=== PATIENT | female | born 1980 | race Caucasian/White ===

== ENCOUNTER 2017-06-28 16:48 | Inpatient (IN) | payer MEDICAID, OTHER ==
[~2017-06-28] VITALS: Ht 165.1 cm; Wt 56.3 kg
[~2017-06-28 16:48] MED LIST: MACR100C PO; OMEP40CA2 PO; WELL150T PO; ZOFR4TAB3 SL; ZYPR15TA PO
[2017-06-28 17:21] VITALS: BP 133/59; PULSE 94; RESP 21; TEMP 97.9; O2SAT 100
--- NOTE | 2017-06-28 17:30 | PD ---
HPI Chief Complaint: Psychiatric Symptoms Time Seen by Provider: 17:18 Travel History International Travel<30 days: No Contact w/Intl Traveler<30days: No Traveled to known affect area: No History of Present Illness HPI 37yo F with PMH of bipolar disorder presents to the ED under [place] Act for being found soaking wet and talking about Destin Raman. Pt said she was getting help for her mom and went into a pond. Said she does have thoughts of hurting herself but did not do anything today including taking any pills. Denies any fever, chest pain, sob, n/v, abdominal pain, focal weakness or numbness. Said she has not seen her psychiatrist for months and not taking any medications. PFSH Past Medical History ADD: Yes Bipolar Disorder: Yes Anxiety: Yes Depression: Yes Diminished Hearing: No Reproductive: Yes (CURRENTLY (02/21/08) ) Immunizations Current: Yes Renal Failure: Yes ?: Not : 4 Para: 2 Miscarriage: 2 Ectopic : Yes (1X) Social History Alcohol Use: No Tobacco Use: No Substance Use: No Allergies-Medications (Allergen,Severity, Reaction): Coded Allergies: clindamycin (Unverified Allergy, Mild, RASH, 01/17/17) Reported Meds & Prescriptions Reported Meds & Active Scripts Active Macrobid (Nitrofurantoin Macrocrystals) 100 Mg Cap 100 Mg PO BID Zofran ODT (Ondansetron HCl) 4 Mg Tab 4 Mg SL Q6H PRN FOR NAUSEA/VOMITING Omeprazole 40 mg (Omeprazole) 40 Mg Cap 1 Cap PO Q DAY Reported Zyprexa (Olanzapine) 15 Mg Tab 15 Mg PO DAILY Wellbutrin Sr (Bupropion HCl) 150 Mg Tab 300 Mg PO DAILY Review of Systems Except as stated in HPI: all other systems reviewed are Neg Physical Exam Narrative GENERAL: 37yo F not in distress. Disheveled. SKIN: Minor scratches on extremities. HEAD: Atraumatic. Normocephalic. EYES: Pupils equal and round. No scleral icterus. No injection or drainage. ENT: No nasal bleeding or discharge. Mucous membranes pink and moist. NECK: Trachea midline. No JVD. CARDIOVASCULAR: Regular rate and rhythm. No murmur appreciated. RESPIRATORY: No accessory muscle use. Clear to auscultation. Breath sounds equal bilaterally. GASTROINTESTINAL: Abdomen soft, non-tender, nondistended. MUSCULOSKELETAL: No obvious deformities. No clubbing. No cyanosis. No edema. NEUROLOGICAL: Awake and alert. No obvious cranial nerve deficits. Motor grossly within normal limits. Normal speech. AAOx3. PSYCHIATRIC: Inappropriate mood and affect; poor insight and judgment. Data Data Last Documented VS Vital Signs Date Time Temp Pulse Resp B/P (MAP) Pulse Ox O2 Delivery O2 Flow Rate FiO2 06/28/17 17:21 97.9 94 21 133/59 (83) 100 Room Air Orders Orders Complete Blood Count With Diff (06/28/17 17:25) Comprehensive Metabolic Panel (06/28/17 17:25) Thyroid Stimulating Hormone (06/28/17 17:25) Psych Screen (06/28/17 17:25) Drug Screen, Random Urine (06/28/17 17:25) Alcohol (Ethanol) (06/28/17 17:25) Salicylates (Aspirin) (06/28/17 17:25) Tylenol (Acetaminophen) (06/28/17 17:25) Sodium Chlor 0.9% 1000 Ml Inj (Ns 1000 M (06/28/17 19:15) Labs Laboratory Tests Test 06/28/17 17:20 06/28/17 17:33 Urine Opiates Screen NEG Urine Barbiturates Screen NEG Urine Amphetamines Screen NEG Urine Benzodiazepines Screen NEG Urine Cocaine Screen NEG Urine Cannabinoids Screen NEG White Blood Count 8.5 TH/MM3 Red Blood Count 3.77 MIL/MM3 Hemoglobin 12.0 GM/DL Hematocrit 35.2 % Mean Corpuscular Volume 93.2 FL Mean Corpuscular Hemoglobin 31.9 PG Mean Corpuscular Hemoglobin Concent 34.3 % Red Cell Distribution Width 12.5 % Platelet Count 217 TH/MM3 Mean Platelet Volume 8.0 FL Neutrophils (%) (Auto) 83.3 % Lymphocytes (%) (Auto) 9.1 % Monocytes (%) (Auto) 7.0 % Eosinophils (%) (Auto) 0.1 % Basophils (%) (Auto) 0.5 % Neutrophils # (Auto) 7.1 TH/MM3 Lymphocytes # (Auto) 0.8 TH/MM3 Monocytes # (Auto) 0.6 TH/MM3 Eosinophils # (Auto) 0.0 TH/MM3 Basophils # (Auto) 0.0 TH/MM3 CBC Comment DIFF FINAL Differential Comment Blood Urea Nitrogen 26 MG/DL Creatinine 0.95 MG/DL Random Glucose 64 MG/DL Total Protein 7.4 GM/DL Albumin 4.1 GM/DL Calcium Level 8.7 MG/DL Alkaline Phosphatase 43 U/L Aspartate Amino Transf (AST/SGOT) 51 U/L Alanine Aminotransferase (ALT/SGPT) 38 U/L Total Bilirubin 0.8 MG/DL Sodium Level 144 MEQ/L Potassium Level 3.8 MEQ/L Chloride Level 106 MEQ/L Carbon Dioxide Level 20.7 MEQ/L Anion Gap 17 MEQ/L Estimat Glomerular Filtration Rate 67 ML/MIN Thyroid Stimulating Hormone 3rd Gen 1.020 uIU/ML Salicylates Level 2.5 MG/DL Acetaminophen Level LESS THAN 2.0 MCG/ML Ethyl Alcohol Level LESS THAN 3 MG/DL MDM Medical Decision Making Medical Screen Exam Complete: Yes Emergency Medical Condition: Yes Differential Diagnosis Psychosis vs. bipolar disorder Narrative Course 37yo F with bipolar disorder here under [place] Act for bizarre behavior. Pt is very bizarre and said she does have thoughts of hurting herself. Labs reviewed , no leukocytosis. H/H normal. Glucose mildly decreased at 64, pt given juice. BUN elevated at 26, given NS IVF. TSH normal. Utox negative. Alcohol , acetaminophen and salicylate negative. Pt is medically clear for psych evaluation. Diagnosis Primary Impression: Bipolar disorder Qualified Codes: F31.30 - Bipolar disorder, current episode depressed, mild or moderate severity, unspecified Darlyn Lewis DO Jun 28, 2017 17:30
[2017-06-28 17:52] LABS: AUTOMATED NEUTROPHIL # 7.1 TH/MM3 (1.8-7.7); BASOPHIL % 0.5 % (0.0-2.0); EOSINOPHIL % 0.1 % (0.0-4.0); HEMATOCRIT 35.2 % (35.0-46.0); LYMPH % 9.1 % (9.0-44.0); LYMPHOCYTE # 0.8 TH/MM3 (1.0-4.8); MEAN CELL VOLUME 93.2 FL (80.0-100.0); MEAN CORPUSCULAR HEMOGLOBIN 31.9 PG (27.0-34.0); MEAN CORPUSCULAR HGB CONC 34.3 % (32.0-36.0); MONOCYTE # 0.6 TH/MM3 (0-0.9); NEUT % 83.3 % (16.0-70.0); PLATELET COUNT 217 TH/MM3 (150-450); RED BLOOD COUNT 3.77 MIL/MM3 (4.00-5.30); RED CELL DISTRIBUTION WIDTH 12.5 % (11.6-17.2); WHITE BLOOD COUNT 8.5 TH/MM3 (4.0-11.0)
[2017-06-28 18:10] LABS: ALBUMIN 4.1 GM/DL (3.4-5.0); ALT (GPT) 38 U/L (10-53); AST (GOT) 51 U/L (15-37); BICARBONATE 20.7 MEQ/L (21.0-32.0); BLOOD UREA NITROGEN 26 MG/DL (7-18); CALCIUM 8.7 MG/DL (8.5-10.1); CHLORIDE 106 MEQ/L (98-107); CREATININE 0.95 MG/DL (0.50-1.00); GLOMERULAR FILTRATION RATE 67 ML/MIN (>89); GLUCOSE,RANDOM 64 MG/DL (74-106); SODIUM (NA) 144 MEQ/L (136-145)
[2017-06-28 18:20] LABS: ACETAMINOPHEN LESS THAN 2.0 MCG/ML (10.0-30.0); ALKALINE PHOSPHATASE 43 U/L (45-117); TOTAL BILIRUBIN ADULT 0.8 MG/DL (0.2-1.0); TOTAL PROTEIN 7.4 GM/DL (6.4-8.2)
[2017-06-28] MEDS ORDERED: SODIUM CHLOR 0.9% 1000 ML INJ 1,000 ML IV ONE (19:15)
[2017-06-28 23:46] VITALS: BP 116/64; PULSE 100; RESP 18; TEMP 100.1; O2SAT 100
[2017-06-29] MEDS ORDERED: BENZTROPINE MESYLATE 2 MG/2 ML VIAL IM PRN (01:00)
[2017-06-29] MEDS ORDERED: MAGNESIUM HYDROXIDE SUSP 30 ML CUP PO PRN (01:00)
[2017-06-29] MEDS ORDERED: BENZTROPINE MESYLATE 1 MG TAB PO PRN (01:00)
[2017-06-29] MEDS ORDERED: traZODone HCL 50 MG TAB PO PRN (01:00)
[2017-06-29] MEDS ORDERED: ALUMINUM/MAGNESIUM/SIMETH 30 ML CUP PO PRN (01:00)
[2017-06-29] MEDS ORDERED: NICOTINE 21 MG/24 HR PATCH T-DERMAL PRN (01:00)
[2017-06-29 03:00] VITALS: BP 121/70; PULSE 81; RESP 16; TEMP 98; O2SAT 99
--- NOTE | 2017-06-29 08:36 | HHI.HP ---
Provisional Diagnosis Admission Date Jun 29, 2017 at 00:53 [place] I. 1. Schizoaffective disorder, unspecified type [place] II. Deferred Certification of Person's Competence To Provide Express and Informed Consent I have personally examined Sarah Santos , a person being served at [facility] on, Jun 29, 2017 08:35. Express and informed consent means consent voluntarily given in writing, by a competent person, after sufficient explanation and disclosure of the subject matter involved to enable the person to make a knowing and willful decision without any element of force, fraud, deceit, duress, or other form of constraint or coercion. This person is 18 years of age or older, is not now known to be incompetent to consent to treatment with a guardian advocate, and does not have a health care surrogate or proxy currently making medical treatment decisions. I have found this person to be one of the following: [] Competent to provide express and informed consent, as defined above, for voluntary admission to this facility and is competent to provide express and informed consent for treatment. He/she has the consistent capacity to make well reasoned, willful, and knowing decisions concerning his or her medical or mental health treatment. The person fully and consistently understands the purpose of the admission for examination/placement and is fully capable of personally exercising all rights assured [place] [x] Incompetent to provide express and informed consent to voluntary admission, and this is incompetent to provide express and informed consent to treatment. The person must be transferred to involuntary status and a petition for a guardian advocate filed with the Circuit Court. [] Refusing to provide express and informed consent to voluntary admission but is competent to provide express and informed consent for treatment. The person must be discharged or transferred to involuntary status. Form shall be completed within 24 hours of a person's arrival at the receiving facility and filed in the clinical record of each person: 1. Admitted on a voluntary basis 2. Permitted to provide express and informed consent to his/her own treatment 3. Allowed to transfer from involuntary to voluntary status 4. Prior to permitting a person to consent to his or her own treatment after having been previously found incompetent to consent to treatment. History of Present Illness Capacity: Lacks Capacity Psych Chief Complaint: "I don't wanna take meds, I'm ok." HPI Ms. Santos is a 37-year-old female with a self-reported history of bipolar disorder and autism spectrum disorder who presents under a [place]cker act by law enforcement alleging that the patient was found soaking wet and talking about [place]. Reviewing our electronic medical record, I note that the patient has no prior psychiatric contact within our system but does have bipolar disorder in her problem list. Patient seen and examined with nurse. Chart reviewed. Case discussed with nursing staff. Patient has reportedly been quite exit seeking, trying many of the doors on the unit. I find the patient at the nursing station door, trying the handle. She is quite anxious and appears internally stimulated. She is covering her ears with her hands. She is with some effort redirected to her room for the interview. She insists that we "close the door tight" noting that she is quite sensitive to sounds. She repeatedly stares out of the window of her room in a watchful fashion but cannot say what she is looking at. She also covers her pillow with her head and puts her fingers in her ears. She insists that she is feeling "great" today, although affect is generally dysphoric and restricted. Sleep and appetite are "good enough." She denies SI/HI but seems unreliable to contract for safety. She tends to minimize symptoms generally. Regarding the circumstances of her presentation here, she says "I was on a bible study trip and was reading the bible and must've fallen into a ravine." Remainder of the psychiatric ROS is negative. Complains of headache but has no other physical complaints. Past psychiatric history: Patient is possibly an unreliable historian. She reports previous psychiatric diagnoses as noted above. She is not currently under the care of a psychiatrist. She is on no psychotropic medications. Most recent psychiatric admission was reportedly over 5 years ago at [facility]. She denies a history of suicide attempts. With the patient's permission and given her degree of psychiatric impairment, I did endeavor to obtain collateral information from patient's mother, Marcy Santos, at [phone]. I left a voicemail requesting a call back. Again with patient's permission, I had more success in reaching patient's father, Tyrese Santos, at [phone] (alternate [phone]). He reports patient has a history of Bipolar disorder/Schizophrenia; she does not have a history of autism that he is aware of. He notes she has been "roaming around" for the last week or so. She is frequently medication non-adherent and reportedly tries to manage her psychiatric symptoms with diet. She may have a history of eating disordered behavior. He notes that patient was staying with mother and reportedly told her that both mother and patient were going to . She has been hospitalized fairly recently at [facility] and [facility]. She has received ECT treatments in the past. Father is unable to care for patient in his home at this time. He is willing to act as HCS. He is in agreement with treatment plan as outlined below. Review of Systems ROS Limitations: Psychotic, Poor Historian Except as stated in HPI: all other systems reviewed are Neg Past Psych History Psychological trauma history No reported trauma history. Violence risk - others (6 mos) Indeterminate. Psychotic and unpredictable. Violence risk - self (6 mos) Indeterminate. Psychotic and unpredictable. Substance Abuse History Drugs/Alcohol past 12 months Patient denies any abuse of drugs or alcohol Past Family Social History Coded Allergies: clindamycin (Unverified Allergy, Mild, RASH, 01/17/17) Past Medical History Patient denies any significant past medical history Active Scripts Nitrofurantoin Monohyd Macro (Macrobid) 100 Mg Cap, 100 MG PO BID, #20 CAP Prov:Ludivina Kelley MD 03/16/16 Ondansetron (Zofran ODT) 4 Mg Tab, 4 MG SL Q6H Y for NAUSEA OR VOMITING, #4 TAB FOR NAUSEA/VOMITING Prov:Ludivina Kelley MD 03/16/16 Omeprazole 40 mg (Omeprazole 40 mg) 40 Mg Cap, 1 CAP PO Q DAY, #14 Prov:Ludivina Kelley MD 03/16/16 Reported Medications Olanzapine (Zyprexa) 15 Mg Tab, 15 MG PO DAILY, TAB 03/16/16 Bupropion Hcl (Wellbutrin Sr) 150 Mg Tab, 300 MG PO DAILY, TAB 03/16/16 Current Medications Medications (Trade) Dose Ordered Sig/Ewelina Route Start Time Stop Time Status Last Admin (Ativan) 0.5 mg Q6H PRN PO 06/29/17 01:00 (Ativan Inj) 0.5 mg Q6H PRN IM 06/29/17 01:00 (Tylenol) 650 mg Q4H PRN PO 06/29/17 01:00 (Milk Of Magnesia Liq) 30 ml DAILY PRN PO 06/29/17 01:00 (Mag-Al Plus Susp Liq) 30 ml Q6H PRN PO 06/29/17 01:00 (Habitrol 21 Mg Patch.24 Hr) 1 patch DAILY PRN T-DERMAL 06/29/17 01:00 (Desyrel) 50 mg HS PRN PO 06/29/17 01:00 (Cogentin) 1 mg Q12H PRN PO 06/29/17 01:00 (Cogentin Inj) 1 mg Q12H PRN IM 06/29/17 01:00 Family Psych History Patient reports that her mother has bipolar disorder. She denies any family history of suicide. Social History Patient's mother reportedly has stage III lung cancer. Patient has been residing with mother. Patient has 2 sons ages 6 and 7 who reside with her father. Patient is not presently in a long-term relationship. She is high school educated. She does report some source of income, unclear what. Social history is somewhat limited because of patient's degree of psychiatric symptomatology. Patient's Strengths (min. 2) In a monitored setting. Verbally fluent. Physical Exam Physical exam was completed by ED provider. On my examination today, the patient appears to be in no acute physical distress. No motor abnormalities noted. Labs and vitals reviewed: Vital Signs Vital Signs Date Time Temp Pulse Resp B/P (MAP) Pulse Ox O2 Delivery O2 Flow Rate FiO2 06/29/17 03:00 98.0 81 16 121/70 (87) 99 06/28/17 23:46 Room Air Lab Results Item Value Date Time White Blood Count 8.5 TH/MM3 06/28/17 1733 Hemoglobin 12.0 GM/DL 06/28/17 1733 Platelet Count 217 TH/MM3 06/28/17 1733 Sodium Level 140 MEQ/L 06/29/17 0658 Potassium Level 3.5 MEQ/L 06/29/17 0658 Chloride Level 105 MEQ/L 06/29/17 0658 Carbon Dioxide Level 24.0 MEQ/L 06/29/17 0658 Blood Urea Nitrogen 15 MG/DL # 06/29/17 0658 Creatinine 0.87 MG/DL 06/29/17 0658 Estimat Glomerular Filtration Rate 74 ML/MIN L 06/29/17 0658 Random Glucose 86 MG/DL 06/29/17 0658 Thyroid Stimulating Hormone 3rd Gen 1.020 uIU/ML 06/28/17 1733 Beta HCG, Qualitative LESS THAN 1 MIU/ML 06/28/17 1733 Urine Opiates Screen NEG 06/28/17 1720 Urine Barbiturates Screen NEG 06/28/17 1720 Urine Amphetamines Screen NEG 06/28/17 1720 Urine Benzodiazepines Screen NEG 06/28/17 1720 Urine Cocaine Screen NEG 06/28/17 1720 Urine Cannabinoids Screen NEG 06/28/17 1720 Ethyl Alcohol Level LESS THAN 3 MG/DL 06/28/17 1733 Decreased GFR noted. Mental Status Examination Appearance: Disheveled Consciousness: Alert, Vigilant Orientation: Person, Place (at least) Motor Activity: Normal gait Speech: Unremarkable Language: Adequate Fund of Knowledge: Adequate Attention and Concentration: Easily Distracted Memory: Impaired (suspect psychosis interferes) Mood: Other ("great") Affect: Anxious, Other (dysphoric) Thought Process & Associations: Circumstantial Thought Content: Bizarre thinking, Hallucinations Hallucination Type: Other (denies AVH but appears frankly internally stimulated ) Delusion Type: Other (fairly guarded but no shara delusions) Suicidal Ideation: No (unreliable to contract for safety) Suicidal Plan: No Suicidal Intention: No Homicidal Ideation: No (unreliable to contract for safety) Homicidal Plan: No Homicidal Intention: No Insight: Poor Judgment: Poor Assessment & Plan Problem List: (1) Other schizoaffective disorders ICD Codes: F25.8 - Other schizoaffective disorders Assessment & Plan 37-year-old female with psychiatric history as detailed above who presents under a Decker act. On my examination today, the patient appears frankly internally stimulated and guarded. I suspect a psychotic process, possibly as part of a schizoaffective disorder. Although the patient reports a history of autism, father reports that the patient has no such history, and clinical presentation currently is really more consistent with a primary psychotic illness, possibly with some affective features. Patient requires psychiatric hospitalization at this time for safety, observation and stabilization. Admit inpatient. Involuntary status. I have completed first opinion. Consult for second opinion. Request healthcare surrogate and guardian advocate. I have asked the nurse to try to obtain treatment records from and [facility]. For the management of psychosis, I will initiate Risperdal M-Tabs 1mg BID with plans to titrate to effect. Haldol IM backup should patient refuse PO Risperdal. Could consider Consta or Sustenna. EKG for QTc. Ativan as needed for anxiety, Cogentin as needed for EPS, trazodone as needed for sleep. Oral intake is poor, and patient may have a history of eating disorder per father; dietitian consult and I&Os. Vitals every shift. Counselor to see. Disposition planning. Estimated length of stay: 7-9 days. Discharge Planning Pending psychiatric stabilization. Enrique Maya MD Jun 29, 2017 08:36
[2017-06-29 08:48] LABS: ALKALINE PHOSPHATASE 41 U/L (45-117); ALT (GPT) 37 U/L (10-53); AST (GOT) 48 U/L (15-37); BLOOD UREA NITROGEN 15 MG/DL (7-18); CALCIUM 8.3 MG/DL (8.5-10.1); CHLORIDE 105 MEQ/L (98-107); CHOLESTEROL 127 MG/DL (120-200); CHOLESTEROL/ HDL RATIO 2.14 RATIO; CREATININE 0.87 MG/DL (0.50-1.00); GLOMERULAR FILTRATION RATE 74 ML/MIN (>89); GLUCOSE,RANDOM 86 MG/DL (74-106); HDL CHOLESTEROL 59.1 MG/DL (40.0-60.0); LDL CHOLESTEROL 59 MG/DL (0-99); SODIUM (NA) 140 MEQ/L (136-145); TOTAL BILIRUBIN ADULT 0.8 MG/DL (0.2-1.0); TOTAL PROTEIN 7.4 GM/DL (6.4-8.2); TRIGLYCERIDES 47 MG/DL (42-150)
[2017-06-29] MEDS: LORazepam 1 MG TAB PO PRN (09:01)
[2017-06-29] MEDS ORDERED: OLANZapine IM 10 MG VIAL IM STA (14:23)
[2017-06-29 16:53] LABS: HEMOGLOBIN A1C 5.1 % (4.3-6.0)
[2017-06-29] MEDS: risperiDONE ODT 1 MG TAB PO SCH (21:00)
[2017-06-29] MEDS: ACETAMINOPHEN 325 MG TAB PO PRN (23:41)
[2017-06-30] MEDS: HALOPERIDOL LACTATE 5 MG/ML AMP IM PRN (00:12)
[2017-06-30 05:56] VITALS: BP 113/61; PULSE 73; RESP 16; TEMP 97.4; O2SAT 99
[2017-06-30] MEDS: risperiDONE ODT 1 MG TAB PO SCH ×2 (09:00→20:09)
[2017-06-30 09:03] LABS: BACTERIA, URINE OCC /hpf; BLOOD, URINE MOD (NEG); GLUCOSE,URINE NEG (NEG); KETONE, URINE 80 mg/dL (NEG); MUCUS URINE FEW /lpf (OCC); NITRITE,URINE NEG (NEG); SQUAMOUS EPITHELIAL CELL URINE 5 /hpf (0-5); URINE COLOR YELLOW (YELLW/STRAW); URINE LEUKOCYTE ESTERASE LARGE (NEG)
[2017-06-30 09:16] LABS: BILIRUBIN, URINE NEG (NEG)
[2017-06-30 10:50] LABS: BICARBONATE 28.7 MEQ/L (21.0-32.0); CALCIUM 8.6 MG/DL (8.5-10.1); CREATININE 0.96 MG/DL (0.50-1.00)
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
--- NOTE | 2017-06-30 13:16 | HHI.PYPN ---
Subjective Chief Complaint: Psychosis Remarks Patient seen and examined with nurse. Chart reviewed. Patient ate little yesterday, but nurse reports that patient has met with dietitian to formulate a food plan that patient will eat, and I do see her taking lunch while I am on the unit. Case discussed with nursing staff. Behavior considerably disturbed overnight: patient tried to elope and also pulled a screw off the wall, although she did relinquish this when asked. Case discussed in treatment team. On my exam, patient reports that she pulled the screw out of the wall because she wanted to kill herself to go to [facility]. She denies SI/HI now. I have ordered the patient placed on a 1:1 for safety. She is calmer and less frantic today. She is delusional on anglican themes. Remains internally stimulated. Although she is not consenting for medications, I have discussed medication treatment plan with the patient. Denies side effects from medications. No physical complaints. I did discuss the patient's case with father/healthcare surrogate over the phone , including behaviors overnight and need for 1:1. He plans to make a visit over the weekend. Review of Systems ROS Limitations: Psychotic, Poor Historian Except as stated in HPI: all other systems reviewed are Neg Mental Status Examination Appearance: Disheveled Consciousness: Alert Orientation: Person, Place (at least) Motor Activity: Other (no hand tremor, no cogwheeling, no dystonia, no dyskinesia, no other motor abnormalities noted) Speech: Unremarkable Language: Adequate Fund of Knowledge: Adequate Attention and Concentration: Easily Distracted Memory: Impaired (psychosis interferes) Mood: Other (calmer) Affect: Anxious (less so today versus yesterday) Thought Process & Associations: Circumstantial Thought Content: Bizarre thinking, Hallucinations Hallucination Type: Other (remains internally stimulated) Delusion Type: Other (anglican) Suicidal Ideation: No (unreliable to contract for safety) Suicidal Plan: No Suicidal Intention: No Homicidal Ideation: No (unreliable to contract for safety) Homicidal Plan: No Homicidal Intention: No Insight: Poor Judgment: Poor Results Labs Test 06/30/17 07:15 06/30/17 09:50 Urine Color YELLOW Urine Turbidity HAZY Urine pH 6.0 Urine Specific [place] 1.025 Urine Protein 30 mg/dL Urine Glucose (UA) NEG mg/dL Urine Ketones 80 mg/dL Urine Occult Blood MOD Urine Nitrite NEG Urine Bilirubin NEG Urine Urobilinogen LESS THAN 2.0 MG/DL Urine Leukocyte Esterase LARGE Urine RBC 1 /hpf Urine WBC 20 /hpf Urine Squamous Epithelial Cells 5 /hpf Urine Bacteria OCC /hpf Urine Mucus FEW /lpf Microscopic Urinalysis Comment CULTURE INDICATED Blood Urea Nitrogen 14 MG/DL Creatinine 0.96 MG/DL Random Glucose 124 MG/DL Calcium Level 8.6 MG/DL Sodium Level 141 MEQ/L Potassium Level 3.5 MEQ/L Chloride Level 105 MEQ/L Carbon Dioxide Level 28.7 MEQ/L Anion Gap 7 MEQ/L Estimat Glomerular Filtration Rate 66 ML/MIN Date/Time Source Procedure Growth Status 06/30/17 07:15 Urine Clean Catch Urine Culture Pending Received Labs reviewed. UA concerning for UTI. Urine culture pending. GFR mildly decreased but stable. EKG sinus leon with QTcH 405ms. Vitals/IOs Vital Signs Date Time Temp Pulse Resp B/P (MAP) Pulse Ox O2 Delivery O2 Flow Rate FiO2 06/30/17 05:56 97.4 73 16 113/61 (78) 99 06/28/17 23:46 Room Air Intake and Output 06/30/17 06/30/17 07/01/17 08:00 16:00 00:00 Intake Total 0 ml Balance 0 ml Assessment & Plan Problem List: (1) Other schizoaffective disorders ICD Codes: F25.8 - Other schizoaffective disorders Assessment & Plan Titrate Risperdal over the weekend to target psychotic symptoms. Continue Haldol IM backup. To consider long-acting injectable antipsychotic. Initiate Macrobid for possible UTI; follow-up urine cultures. 1:1 observation for safety. Continue to monitor on high acuity unit. Continue other medications and care as ordered. Justification for Cont. Inpt. Impairment in safety. Impairment in reality construction. Medication changes. High risk for decompensation and less restrictive environment. Discharge Planning Pending psychiatric stabilization. Enrique Maya MD Jun 30, 2017 13:16
--- NOTE | 2017-06-30 13:28 | PD.TTN ---
Patient Problems 1. Discharge planning 2. Medication compliance 3. Knowledge deficit 4. Lack of coping skills Progress Toward Goals Provider Present: Dr. Jonas Maya Provider Input: 06/30 Angie presents with a history of psychosis- her Risperdal will be titrated over the weekend Psych Therapist Input: 06/30 patient seen for bio today did not cooperat yesterday Group Spec/RT/OT/ROQUE Input: 06/30 patient is unable to tolerate gruops at this time Ashleigh Jimenes LCSW Jun 30, 2017 13:28
[2017-06-30] MEDS: NITROFURANTOIN MONOHYD MACROCR 100 MG CAP PO SCH (18:00)
[2017-06-30 18:33] VITALS: BP 118/62; PULSE 71; RESP 17; TEMP 97.6; O2SAT 100
[2017-07-01 06:19] VITALS: BP 111/63; PULSE 76; RESP 16; TEMP 97.6; O2SAT 100
[2017-07-01] MEDS: risperiDONE ODT 1 MG TAB PO SCH ×3 (08:00→21:54)
[2017-07-01] MEDS: NITROFURANTOIN MONOHYD MACROCR 100 MG CAP PO SCH ×2 (08:00→16:58)
--- NOTE | 2017-07-01 12:13 | HHI.PYPN ---
Subjective Chief Complaint: Psychosis Remarks Pt seen and discussed with staff. She remains delusional with bizarre behavior. She believes that she is [place] Raman and has been "talking to God" on the unit. She has been refusing to eat. RN's have been pushing oral hydration and pt is reluctantly compliant with fluids. She is perseverative and repeats, "The power of Lamine compels us!" she has been compliant with medications. She requests a vegetarian diet. Mental Status Examination Appearance: Disheveled Consciousness: Alert Orientation: Person, Place (at least) Motor Activity: Other (no hand tremor, no cogwheeling, no dystonia, no dyskinesia, no other motor abnormalities noted) Speech: Unremarkable Language: Adequate Fund of Knowledge: Adequate Attention and Concentration: Easily Distracted Memory: Impaired (psychosis interferes) Mood: Other (calmer) Affect: Anxious (less so today versus yesterday) Thought Process & Associations: Circumstantial Thought Content: Bizarre thinking, Hallucinations Hallucination Type: Other (remains internally stimulated) Delusion Type: Other (bahai) Suicidal Ideation: No (unreliable to contract for safety) Suicidal Plan: No Suicidal Intention: No Homicidal Ideation: No (unreliable to contract for safety) Homicidal Plan: No Homicidal Intention: No Insight: Poor Judgment: Poor Results Labs Date/Time Source Procedure Growth Status 06/30/17 07:15 Urine Clean Catch Urine Culture Pending Received Vitals/IOs Vital Signs Date Time Temp Pulse Resp B/P (MAP) Pulse Ox O2 Delivery O2 Flow Rate FiO2 07/01/17 06:19 97.6 76 16 111/63 (79) 100 06/28/17 23:46 Room Air Intake and Output 07/01/17 07/01/17 07/02/17 08:00 16:00 00:00 Intake Total 250 ml Balance 250 ml Assessment & Plan Problem List: (1) Other schizoaffective disorders ICD Codes: F25.8 - Other schizoaffective disorders Assessment & Plan Continue titration of risperidone. Changed diet to vegetarian and continue to encourage oral fluids and intake. Estimated LOS: days Justification for Cont. Inpt. impairments in reality testing and self care Roxi Byrd MD Jul 01, 2017 12:13
--- NOTE | 2017-07-01 14:08 | EKG ---
Date Performed: 06/30/2017 Time Performed: 12:57:42 PTAGE: 37 years EKG: SINUS BRADYCARDIA WITH SINUS ARRHYTHMIA EARLY REPOLARIZATION BORDERLINE ECG PREVIOUS TRACING : 09/04/2015 15.04 T-wave changes are new since prior tracing. Clinical correl ation is recommended. DOCTOR: Faustino Newby Interpretating Date/Time 07/01/2017 14:07:33
[2017-07-01 18:03] VITALS: BP 112/82; PULSE 65; RESP 17; TEMP 98.2; O2SAT 100
[2017-07-01] MEDS ORDERED: diphenhydrAMINE HCL 50 MG/ML VIAL ONE (19:10)
[2017-07-01] MEDS ORDERED: diphenhydrAMINE HCL 50 MG/ML VIAL IM ONE (19:45)
[2017-07-01] MEDS ORDERED: LORazepam 2 MG/ML VIAL IM ONE (19:45)
[2017-07-01] MEDS ORDERED: HALOPERIDOL LACTATE 5 MG/ML AMP IM ONE (19:45)
[2017-07-02 06:21] VITALS: BP 114/71; PULSE 88; RESP 16; TEMP 98.2; O2SAT 96
[2017-07-02] MEDS: HALOPERIDOL LACTATE 5 MG/ML AMP IM PRN (08:38)
[2017-07-02] MEDS: LORazepam 2 MG/ML VIAL IM PRN (08:38)
[2017-07-02] MEDS: NITROFURANTOIN MONOHYD MACROCR 100 MG CAP PO SCH ×2 (09:00→18:00)
[2017-07-02] MEDS: risperiDONE ODT 1 MG TAB PO SCH ×2 (09:00→20:14)
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
[2017-07-02 15:31] VITALS: BP 117/64; PULSE 84; RESP 18; TEMP 97.7; O2SAT 100
[2017-07-02] MEDS: LORazepam 1 MG TAB PO PRN (20:14)
[2017-07-03 05:50] VITALS: BP 101/54; PULSE 94; RESP 16; TEMP 98; O2SAT 94
[2017-07-03] MEDS: LORazepam 1 MG TAB PO PRN (07:57)
[2017-07-03] MEDS: risperiDONE ODT 1 MG TAB PO SCH (07:57)
[2017-07-03] MEDS: NITROFURANTOIN MONOHYD MACROCR 100 MG CAP PO SCH (07:57)
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
[2017-07-03] MEDS ORDERED: OLANZapine IM 10 MG VIAL IM STA (12:03)
[2017-07-03 16:57] VITALS: BP 108/60; PULSE 81; RESP 18; TEMP 97.3; O2SAT 98
[2017-07-03] MEDS: risperiDONE ODT 3 MG TAB PO SCH (21:00)
[2017-07-03] MEDS ORDERED: HALOPERIDOL LACTATE 5 MG/ML AMP IM PRN (21:00)
[2017-07-03] MEDS: LORazepam 2 MG/ML VIAL IM PRN (21:38)
[2017-07-04 05:34] VITALS: BP 99/62; PULSE 91; RESP 20; TEMP 99.8; O2SAT 99
[2017-07-04] MEDS: ACETAMINOPHEN 325 MG TAB PO PRN (06:20)
[2017-07-04] MEDS: risperiDONE ODT 3 MG TAB PO SCH ×2 (08:56→20:06)
[2017-07-04] MEDS: LORazepam 1 MG TAB PO PRN ×2 (08:56→13:00)
--- NOTE | 2017-07-04 10:39 | PD.TTN ---
Patient Problems 1. Discharge planning 2. Medication compliance 3. Knowledge deficit 4. Lack of coping skills Progress Toward Goals Provider Present: Dr. Jonas Maya Provider Input: 06/30 Angie presents with a history of psychosis- her Risperdal will be titrated over the weekend 07/04/17 Patient remains on 1 to 1. Patient continues to present psychotic, will tritrate medication Nurse(s) Input: Patient yesterday and today has been attempting to wander into other's rooms. Can be religiously preocuupied. Currently alert x3. Patient mentions her recent behaviors, "All the things you've been noticing" which suggests improved insight at this time but remains unpredictable. Psych Therapist Input: 06/30 patient seen for bio today did not cooperat yesterday 07/04/17 Patient continues to be on 1 to 1. Patient reports feeling depressed, affect flat. Patient's speech is clear and disorganized. Patient made poor eye contact. Patient reports sleep is well, but due to patient's allergies she is limited on selecting food. Patient is medication compliant, patient denies suicidal and homicidal ideation. Patient denies hearing voices, however patient presents internally stimuated Group Spec/RT/OT/ROQUE Input: 06/30 patient is unable to tolerate gruops at this time 07/04/17 Patient is placed on 1 to 1. Patient is unable to tolerate the groups activities at this time. Encouragement will be given. Jammie Esquivel [facility] Jul 04, 2017 10:39
--- NOTE | 2017-07-04 12:31 | HHI.PYPN ---
Subjective Chief Complaint: Psychosis Remarks Patient seen and examined with nurse. Chart reviewed. Case discussed with nursing staff who reports that the patient had no further aggressive behavior after she swung at her one-to-one sitter yesterday in the early afternoon. She has been wandering and trying to get into other people's rooms area nurse has noted somewhat decreased sabianism preoccupation but does note that the patient articulated beliefs that there was something in her body. Case discussed in treatment team. Patient remains with one-to-one sitter. On my examination today, the patient is calm and seems somewhat more relevant and coherent in conversation. She says that she is feeling somewhat depressed and that Lamictal helped "tremendously" in the past. She says that she feels depressed because she is "not able to go outside and speak to God." She is aware of the risk of severe rash and says that she did not experience this side effect with Lamictal. We discuss her aggressive behavior in the last several days and the patient insists "that's just a game I was playing," and she says that she will not play this game any longer. She denies any SI or HI. No side effects from medications. No physical complaints. Spoke with patient's father/healthcare surrogate over the phone. We discussed patient's progress on the unit and treatment plan going forward. He will plan to make a visit to the patient this evening to assess progress. He is agreeable with the treatment plan as outlined below. I spent ~10min in telephone consultation with father. Review of Systems ROS Limitations: Psychotic, Poor Historian Except as stated in HPI: all other systems reviewed are Neg Mental Status Examination Appearance: Disheveled (grooming improving somewhat.) Consciousness: Alert Orientation: Person, Place (at least) Motor Activity: Other (no abnormal motor movements noted.) Speech: Unremarkable Language: Adequate Fund of Knowledge: Adequate Attention and Concentration: Easily Distracted (somewhat more focused today) Memory: Impaired (psychosis interferes) Mood: Other (somewhat depressed) Affect: Blunt Thought Process & Associations: Circumstantial Thought Content: Bizarre thinking, Thought blocking (decreasing), Delusional Hallucination Type: None Delusion Type: Other (sabianism) Suicidal Ideation: No (unreliable to contract for safety) Suicidal Plan: No Suicidal Intention: No Homicidal Ideation: No (unreliable to contract for safety) Homicidal Plan: No Homicidal Intention: No Insight: Poor Judgment: Poor Mental Status Exam Remarks No visible rash Results Labs Date/Time Source Procedure Growth Status 06/30/17 07:15 Urine Clean Catch Urine Culture - Final 50-100,000 CFU/ML MIXED GRAM POSITIVE... Complete Labs reviewed Vitals/IOs Vital Signs Date Time Temp Pulse Resp B/P (MAP) Pulse Ox O2 Delivery O2 Flow Rate FiO2 07/04/17 05:34 99.8 91 20 99/62 (74) 99 Assessment & Plan Problem List: (1) Other schizoaffective disorders ICD Codes: F25.8 - Other schizoaffective disorders Assessment & Plan Initiate Lamictal 25 mg at bedtime with plans to titrate to effect for mood stabilization. R/B/A discussed with patient's father, and I have highlighted the potential risk of Ceja-Richard syndrome. Continue Risperdal as ordered. So long as the patient's father finds her improving towards baseline with this medication during his visit with patient, to consider long-acting injectable such as Risperdal Consta or Invega Sustenna. Continue one to one sitter overnight. If patient has no further behavioral disturbance, to consider discontinuing sitter tomorrow. Continue to monitor on high acuity unit. Continue other medications and care as ordered. Justification for Cont. Inpt. Med changes. Impairment in reality construction. High risk for decompensation in less restrictive environment. Discharge Planning Pending psychiatric stabilization. Request HC Surrog/Guard Advoc?: Yes Enrique Maya MD Jul 04, 2017 12:31
[2017-07-04 17:41] VITALS: BP 92/55; PULSE 101; RESP 20; TEMP 97.8; O2SAT 97
[2017-07-04] MEDS: lamoTRIgine 25 MG TAB PO SCH (20:05)
[2017-07-05 05:28] VITALS: BP 98/53; PULSE 89; RESP 20; TEMP 98.1; O2SAT 97
[2017-07-05] MEDS: risperiDONE ODT 3 MG TAB PO SCH ×2 (08:31→21:04)
--- NOTE | 2017-07-05 11:53 | HHI.PYPN ---
Subjective Chief Complaint: Psychosis Remarks Patient seen and examined with nurse. Chart reviewed. Case discussed with nursing staff. No behavioral disturbances noted overnight. On my examination today, the patient reports that she feels "a little bit better." She reports that her appetite and sleep are improving. Mood is likewise improving. She denies any SI or HI. Denies any AVH. Denies any side effects from medications. No physical complaints. Patient reports that father was unable to make a visit last night. I did offer the patient a family meeting if she wishes, and she says that she will consider it. Review of Systems ROS Limitations: Psychotic, Poor Historian Except as stated in HPI: all other systems reviewed are Neg Mental Status Examination Appearance: Other (fair grooming) Consciousness: Alert Orientation: Person, Place Motor Activity: Other (no motoric abnormalities noted) Speech: Unremarkable Language: Adequate Fund of Knowledge: Adequate Attention and Concentration: Easily Distracted (again somewhat more focused today) Memory: Unremarkable Mood: Other (mood is slowly improving) Affect: Blunt Thought Process & Associations: Intact, Linear Thought Content: Bizarre thinking Hallucination Type: None Delusion Type: Other (suspect some underlying delusional material but none elicited today) Suicidal Ideation: No (unreliable to contract for safety) Suicidal Plan: No Suicidal Intention: No Homicidal Ideation: No (unreliable to contract for safety) Homicidal Plan: No Homicidal Intention: No Insight: Poor Judgment: Poor Mental Status Exam Remarks No complaints of rash. No visible rash. Results Labs Date/Time Source Procedure Growth Status 06/30/17 07:15 Urine Clean Catch Urine Culture - Final 50-100,000 CFU/ML MIXED GRAM POSITIVE... Complete Labs reviewed. Vitals/IOs Vital Signs Date Time Temp Pulse Resp B/P (MAP) Pulse Ox O2 Delivery O2 Flow Rate FiO2 07/05/17 05:28 98.1 89 20 98/53 (32) 97 Assessment & Plan Problem List: (1) Other schizoaffective disorders ICD Codes: F25.8 - Other schizoaffective disorders Assessment & Plan Continue Risperdal and Lamictal as ordered. To consider further titration of Risperdal to target residual symptoms. Plan for ongoing slow titration of Lamictal to minimize risk of SJS. Continue to monitor on the inpatient unit. Discontinue one-to-one as patient is improving and this level of observation is no longer required. Continue other medications and care as ordered. Justification for Cont. Inpt. Risk for decompensation in less restrictive environment Discharge Planning Pending outcome of [place] [facility] tomorrow. Case discussed with counselor who will reach out the patient's father. Request HC Surrog/Guard Advoc?: Yes Enrique Maya MD Jul 05, 2017 11:53
[2017-07-05 17:03] VITALS: BP 95/53; PULSE 80; RESP 18; TEMP 98.3; O2SAT 100
[2017-07-05] MEDS: LORazepam 1 MG TAB PO PRN (18:36)
[2017-07-05] MEDS: lamoTRIgine 25 MG TAB PO SCH (21:04)
[2017-07-06 05:55] VITALS: BP 96/59; PULSE 89; RESP 18; TEMP 98.3; O2SAT 99
[2017-07-06] MEDS: risperiDONE ODT 3 MG TAB PO SCH ×2 (08:08→20:54)
--- NOTE | 2017-07-06 11:36 | HHI.PYPN ---
Subjective Chief Complaint: Psychosis Remarks Patient seen and examined with nurse and nursing students. Chart reviewed. Case discussed with nursing staff who reports that patient seems improved from nurse's last contact with her. Patient tells me that she thinks a long-acting injectable is "a really good idea." We discussed her pharmacotherapeutic options in this regard. The patient admits that she let the oral Risperdal dissolve in her mouth this morning and then spit it out. She remains a little bit preoccupied but does not report any audiovisual hallucinations. No delusional material. She denies any SI or HI. The patient's case was presented to the [employer] act court and was placed in continuance for a week with her father to service healthcare surrogate. She is open to assisted living placement if finances will allow. Spoke with patient's father/healthcare surrogate. After discussion of patient' s pharmacotherapeutic options, he gives consent for Invega Sustenna. We also discussed patient's progress on the unit. Review of Systems ROS Limitations: Psychotic Except as stated in HPI: all other systems reviewed are Neg Mental Status Examination Appearance: Other (fair grooming) Consciousness: Alert Orientation: Person, Place Motor Activity: Other (No abnormal motor movements noted.) Speech: Unremarkable Language: Adequate Fund of Knowledge: Adequate Attention and Concentration: Other (Fair) Memory: Unremarkable Mood: Other (mood continues to slowly improve) Affect: Blunt Thought Process & Associations: Intact, Linear Thought Content: Bizarre thinking Hallucination Type: None Delusion Type: Other (no delusional material verbalized today) Suicidal Ideation: No (unreliable to contract for safety) Suicidal Plan: No Suicidal Intention: No Homicidal Ideation: No (unreliable to contract for safety) Homicidal Plan: No Homicidal Intention: No Insight: Poor (perhaps improving somewhat) Judgment: Poor Results Labs Date/Time Source Procedure Growth Status 06/30/17 07:15 Urine Clean Catch Urine Culture - Final 50-100,000 CFU/ML MIXED GRAM POSITIVE... Complete Labs reviewed. No new labs. Vitals/IOs Vital Signs Date Time Temp Pulse Resp B/P (MAP) Pulse Ox O2 Delivery O2 Flow Rate FiO2 07/06/17 05:55 98.3 89 18 96/59 (71) 99 Intake and Output 07/06/17 07/06/17 07/07/17 08:00 16:00 00:00 Intake Total 360 ml Balance 360 ml Assessment & Plan Problem List: (1) Other schizoaffective disorders ICD Codes: F25.8 - Other schizoaffective disorders Assessment & Plan Check and updated BMP as most recent GFR would suggest that the patient needs a lower starting dose of Invega Sustenna. However, I suspect that she was simply somewhat dehydrated when this BMP was obtained. So long as the new BMP reveals improved GFR, we will plan to start Invega Sustenna 234 mg IM today with plan for booster dose in 4-7 days. We will continue oral Risperdal supplementation briefly has extended oral supplementation is not required with Invega Sustenna. Continue to monitor on the inpatient unit. To consider transferring to lower acuity unit. Continue other meds and care as ordered. Justification for Cont. Inpt. Med changes. Resolving impairment in reality construction. Risk for decompensation in less restrictive environment. Discharge Planning Pending psychiatric stabilization. Request HC Surrog/Guard Advoc?: Yes Enrique Maya MD Jul 06, 2017 11:36
[2017-07-06] MEDS: LORazepam 1 MG TAB PO PRN (11:50)
[2017-07-06 13:35] LABS: BICARBONATE 32.2 MEQ/L (21.0-32.0); CALCIUM 8.9 MG/DL (8.5-10.1); CREATININE 0.84 MG/DL (0.50-1.00)
[2017-07-06] MEDS ORDERED: PALIPERIDONE PALMITATE 156 MG/ML SYRINGE IM ONE (14:30)
[2017-07-06 16:29] VITALS: BP 99/62; PULSE 85; RESP 17; TEMP 98.5; O2SAT 99
[2017-07-06] MEDS: lamoTRIgine 25 MG TAB PO SCH (20:55)
[2017-07-07 06:14] VITALS: BP 99/58; PULSE 83; RESP 16; TEMP 98; O2SAT 97
[2017-07-07] MEDS: risperiDONE ODT 3 MG TAB PO SCH ×2 (09:09→20:03)
[2017-07-07] MEDS ORDERED: INFLUENZA VIRUS VACCINE (QUADRIVALENT) 0.5 ML SYR IM ONE (10:00)
--- NOTE | 2017-07-07 10:47 | PD.TTN ---
Patient Problems 1. Discharge planning 2. Medication compliance 3. Knowledge deficit 4. Lack of coping skills Progress Toward Goals Provider Present: Dr. Jonas Maya Provider Input: 07/07/17 still meets criteria and is getting on Invega and ones improved discharge next week 06/30 Angie presents with a history of psychosis- her Risperdal will be titrated over the weekend 07/04/17 Patient remains on 1 to 1. Patient continues to present psychotic, will tritrate medication Nurse(s) Input: Patient yesterday and today has been attempting to wander into other's rooms. Can be religiously preocuupied. Currently alert x3. Patient mentions her recent behaviors, "All the things you've been noticing" which suggests improved insight at this time but remains unpredictable. Psychiatric Counselors Present: Ashleigh Jimenes LCSW Psych Therapist Input: 07/07/17 patient is able to engage more and appears more coherent and able to talk about her situation, planning to re-aaply for SSDI and if not able to live with mother to live with friends from buddhism 06/30 patient seen for bio today did not cooperat yesterday 07/04/17 Patient continues to be on 1 to 1. Patient reports feeling depressed, affect flat. Patient's speech is clear and disorganized. Patient made poor eye contact. Patient reports sleep is well, but due to patient's allergies she is limited on selecting food. Patient is medication compliant, patient denies suicidal and homicidal ideation. Patient denies hearing voices, however patient presents internally stimuated Group Spec/RT/OT/ROQUE Input: 07/07 patient needs encouragement to participate in groups and patient's mood is flat. 06/30 patient is unable to tolerate gruops at this time 07/04/17 Patient is placed on 1 to 1. Patient is unable to tolerate the groups activities at this time. Encouragement will be given. Ashleigh Jimenes LCSW Jul 07, 2017 10:47
--- NOTE | 2017-07-07 12:57 | HHI.PYPN ---
Subjective Chief Complaint: Psychosis Remarks Patient seen and examined with nurse. Chart reviewed. Case discussed with nursing staff who reports patient complained of poor sleep overnight. Case discussed in treatment team. Counselor reports that the patient has lost her disability benefits and so has no panic source for placement. Recreation therapist notes that the patient requires a good deal of encouragement to attend groups, although she is attending. Patient continues to complain on my examination of some intermittent low mood. She did sleep poorly overnight. She attributes this poor sleep to nighttime dosing of Lamictal as she says that she has had this problem in the past when Lamictal was administered at night. She requests that the Lamictal be moved to the morning. No SI or HI. Seems fairly relevant in conversation with no evidence of ongoing psychosis. No other side effects from medications. No ill effects from Invega Sustenna injection received yesterday. No physical complaints. Review of Systems Except as stated in HPI: all other systems reviewed are Neg Mental Status Examination Appearance: Appropriate Consciousness: Alert Orientation: Person, Place Motor Activity: Other (no motor abnormalities noted) Speech: Unremarkable Language: Adequate Fund of Knowledge: Adequate Attention and Concentration: Other (Fair) Memory: Unremarkable Mood: Other (intermittent low mood) Affect: Blunt Thought Process & Associations: Intact, Linear Thought Content: Appropriate Hallucination Type: None Delusion Type: None Suicidal Ideation: No (unreliable to contract for safety) Suicidal Plan: No Suicidal Intention: No Homicidal Ideation: No (unreliable to contract for safety) Homicidal Plan: No Homicidal Intention: No Insight: Fair Judgment: Adequate (fair) Mental Status Exam Remarks No visible rash Results Labs Test 07/06/17 13:08 Blood Urea Nitrogen 10 MG/DL Creatinine 0.84 MG/DL Random Glucose 84 MG/DL Calcium Level 8.9 MG/DL Sodium Level 141 MEQ/L Potassium Level 4.3 MEQ/L Chloride Level 104 MEQ/L Carbon Dioxide Level 32.2 MEQ/L Anion Gap 5 MEQ/L Estimat Glomerular Filtration Rate 77 ML/MIN Date/Time Source Procedure Growth Status 06/30/17 07:15 Urine Clean Catch Urine Culture - Final 50-100,000 CFU/ML MIXED GRAM POSITIVE... Complete Labs reviewed. Vitals/IOs Vital Signs Date Time Temp Pulse Resp B/P (MAP) Pulse Ox O2 Delivery O2 Flow Rate FiO2 07/07/17 06:14 98.0 83 16 99/58 (72) 97 Intake and Output 07/07/17 07/07/17 07/07/17 07:59 15:59 23:59 Intake Total 480 ml Balance 480 ml Assessment & Plan Problem List: (1) Other schizoaffective disorders ICD Codes: F25.8 - Other schizoaffective disorders Assessment & Plan Adjust Lamictal dosing to the morning. Continue oral Risperdal and plan for booster dose of Invega Sustenna next week after which we will likely discontinue the oral Risperdal. Continue to monitor on inpatient unit. Continue other medications and care as ordered. Justification for Cont. Inpt. Risk for decompensation in less restrictive environment. Discharge Planning Possible discharge after the weekend, although it is unclear if family is willing to take the patient in and she has no one else to stay with presently. Also, she has no disability benefits to support a placement. Request HC Surrog/Guard Advoc?: Yes Enrique Maya MD Jul 07, 2017 12:57
[2017-07-07] MEDS ORDERED: lamoTRIgine 25 MG TAB PO ONE (14:00)
[2017-07-07 18:00] VITALS: BP 109/61; PULSE 85; RESP 16; TEMP 97.6; O2SAT 100
[2017-07-07] MEDS: LORazepam 1 MG TAB PO PRN (20:03)
[2017-07-08 06:07] VITALS: BP 115/62; PULSE 104; RESP 16; TEMP 97.4; O2SAT 99
[2017-07-08] MEDS: risperiDONE ODT 3 MG TAB PO SCH ×2 (09:14→22:02)
[2017-07-08] MEDS: lamoTRIgine 25 MG TAB PO SCH (09:15)
--- NOTE | 2017-07-08 15:12 | HHI.PYPN ---
Subjective Chief Complaint: Psychosis Remarks Patient was seen and case discussed with nursing. Patient denies psychotic symptoms but says "my mind is racing." She is asking for more medications. Was explained that Lamictal cannot be increased because it is being titrated and she is ready on healthy dose of Risperdal. We will add when necessary Benadryl. Patient says that the trazodone made her sleep worse and we will discontinue it and at when necessary Benadryl for sleep. Patient is complaining of constipation we will add Colace. She denies suicidal or homicidal ideation intent or plan. Mental Status Examination Appearance: Appropriate Consciousness: Alert Orientation: Person, Place Motor Activity: Other (no motor abnormalities noted) Speech: Unremarkable Language: Adequate Fund of Knowledge: Adequate Attention and Concentration: Other (Fair) Memory: Unremarkable Mood: Other (intermittent low mood) Affect: Blunt Thought Process & Associations: Intact, Linear Thought Content: Appropriate Hallucination Type: None Delusion Type: None Suicidal Ideation: No (unreliable to contract for safety) Suicidal Plan: No Suicidal Intention: No Homicidal Ideation: No (unreliable to contract for safety) Homicidal Plan: No Homicidal Intention: No Insight: Fair Judgment: Adequate (fair) Results Labs Date/Time Source Procedure Growth Status 06/30/17 07:15 Urine Clean Catch Urine Culture - Final 50-100,000 CFU/ML MIXED GRAM POSITIVE... Complete Vitals/IOs Vital Signs Date Time Temp Pulse Resp B/P (MAP) Pulse Ox O2 Delivery O2 Flow Rate FiO2 07/08/17 06:07 97.4 104 16 115/62 (79) 99 Intake and Output 07/08/17 07/08/17 07/09/17 08:00 16:00 00:00 Intake Total 240 ml Balance 240 ml Assessment & Plan Problem List: (1) Other schizoaffective disorders ICD Codes: F25.8 - Other schizoaffective disorders Assessment & Plan Continue treatment plan as noted in history of present illness Justification for Cont. Inpt. Patient will decompensate in a less restrictive setting Request HC Surrog/Guard Advoc?: Yes Naresh Hand DO Jul 08, 2017 15:12
[2017-07-08] MEDS ORDERED: diphenhydrAMINE HCL 25 MG CAP PO PRN (15:15)
[2017-07-08] MEDS: DOCUSATE SODIUM 100 MG CAP PO SCH ×2 (17:44→22:02)
[2017-07-08 18:06] VITALS: BP 99/52; PULSE 77; RESP 18; TEMP 98; O2SAT 98
[2017-07-08] MEDS: diphenhydrAMINE HCL 50 MG CAP PO PRN (22:03)
[2017-07-09 06:08] VITALS: BP 103/56; PULSE 87; RESP 16; TEMP 98.2; O2SAT 96
[2017-07-09] MEDS: risperiDONE ODT 3 MG TAB PO SCH ×2 (09:36→21:13)
[2017-07-09] MEDS: DOCUSATE SODIUM 100 MG CAP PO SCH ×2 (09:36→21:13)
[2017-07-09] MEDS: lamoTRIgine 25 MG TAB PO SCH (09:36)
--- NOTE | 2017-07-09 11:55 | HHI.PYPN ---
Subjective Chief Complaint: Psychosis Remarks Patient was seen and case discussed with nursing. Patient notes sleep has improved with Benadryl. She continues to complain of constipation and we will add MiraLAX. Patient says her mind is "racing." She notes auditory hallucinations today. She is quite flat and anxious. Mood today is "bummed today." Mental Status Examination Appearance: Appropriate Consciousness: Alert Orientation: Person, Place Motor Activity: Other (no motor abnormalities noted) Speech: Unremarkable Language: Adequate Fund of Knowledge: Adequate Attention and Concentration: Other (Fair) Memory: Unremarkable Mood: Other (intermittent low mood) Affect: Blunt Thought Process & Associations: Intact, Linear Thought Content: Appropriate Hallucination Type: None Delusion Type: None Suicidal Ideation: No (unreliable to contract for safety) Suicidal Plan: No Suicidal Intention: No Homicidal Ideation: No (unreliable to contract for safety) Homicidal Plan: No Homicidal Intention: No Insight: Fair Judgment: Adequate (fair) Results Labs Date/Time Source Procedure Growth Status 06/30/17 07:15 Urine Clean Catch Urine Culture - Final 50-100,000 CFU/ML MIXED GRAM POSITIVE... Complete Vitals/IOs Vital Signs Date Time Temp Pulse Resp B/P (MAP) Pulse Ox O2 Delivery O2 Flow Rate FiO2 07/09/17 06:08 98.2 87 16 103/56 (72) 96 Assessment & Plan Problem List: (1) Other schizoaffective disorders ICD Codes: F25.8 - Other schizoaffective disorders Assessment & Plan Continue current treatment plan Justification for Cont. Inpt. Patient would decompensate in a less restrictive setting Request HC Surrog/Guard Advoc?: Yes Naresh Hand DO Jul 09, 2017 11:55
[2017-07-09] MEDS ORDERED: POLYETHYLENE GLYCOL 17 GM PKG PO ONE (12:00)
[2017-07-09] MEDS: LORazepam 1 MG TAB PO PRN (13:12)
[2017-07-09 18:38] VITALS: BP 95/54; PULSE 82; RESP 17; TEMP 98.2; O2SAT 98
[2017-07-09] MEDS: diphenhydrAMINE HCL 50 MG CAP PO PRN (21:47)
[2017-07-10 06:01] VITALS: BP 95/52; PULSE 76; RESP 18; TEMP 98.3; O2SAT 100
[2017-07-10] MEDS: risperiDONE ODT 3 MG TAB PO SCH (08:58)
[2017-07-10] MEDS: lamoTRIgine 25 MG TAB PO SCH (08:59)
[2017-07-10] MEDS: DOCUSATE SODIUM 100 MG CAP PO SCH (08:59)
[2017-07-10] MEDS: LORazepam 1 MG TAB PO PRN (09:25)
[2017-07-10] MEDS ORDERED: LAMO25 PO (11:27)
[2017-07-10] MEDS ORDERED: PALI117P IM (11:27)
--- NOTE | 2017-07-10 11:27 | HHI.DS ---
Psychiatry Discharge Summary Inpatient Psychiatric care?: Yes Advance Directive: No Mental Health AdvanceDirective: No Health Care Proxy: No Admission Admission Date Jun 29, 2017 at 00:53 Admission Diagnosis: (1) Other schizoaffective disorders ICD Code: F25.8 - Other schizoaffective disorders Brief History Ms. Snatos is a 37-year-old female with a self-reported history of bipolar disorder and autism spectrum disorder who presents under a [place] act by law enforcement alleging that the patient was found soaking wet and talking about [place]. Reviewing our electronic medical record, I note that the patient has no prior psychiatric contact within our system but does have bipolar disorder in her problem list.Patient seen and examined with nurse. Chart reviewed. Case discussed with nursing staff. Patient has reportedly been quite exit seeking, trying many of the doors on the unit. I find the patient at the nursing station door, trying the handle. She is quite anxious and appears internally stimulated. She is covering her ears with her hands. She is with some effort redirected to her room for the interview. She insists that we "close the door tight" noting that she is quite sensitive to sounds. She repeatedly stares out of the window of her room in a watchful fashion but cannot say what she is looking at. She also covers her pillow with her head and puts her fingers in her ears. She insists that she is feeling "great" today , although affect is generally dysphoric and restricted. Sleep and appetite are "good enough." She denies SI/HI but seems unreliable to contract for safety. She tends to minimize symptoms generally. Regarding the circumstances of her presentation here, she says "I was on a bible study trip and was reading the bible and must've fallen into a ravine." Remainder of the psychiatric ROS is negative. Complains of headache but has no other physical complaints. Tobacco Use In Past 30 Days: No Tobacco Past 30 Days Alcohol Use: Monthly or Less Hospital Course Patient was admitted to a locked, inpatient psychiatric unit. Appropriate precautions were in place throughout patient's hospital stay. Patient was seen and examined on the unit by psychiatry and also visited by counselor. Psychotropic medications were adjusted. Patient tolerated medication changes well without side effects. She was started on long-acting injectable Invega Sustenna and received both the initial dose and the booster dose on the inpatient unit. Patient had improvement in presenting psychiatric symptomatology during the course of her hospital stay. Patient's behavior improved considerably with the benefit of psychopharmacologic treatment. There was no evidence of any suicidality or homicidality in the several days prior to discharge. The patient was uneventfully transition from the higher acuity unit to the lower acuity unit and tolerated the milieu of the lower acuity unit well. On the day of discharge: Patient seen and examined with nurse. Chart reviewed. Case discussed with nursing staff. No behavioral issues noted overnight. Case discussed with counselor. Father has left a note from his visit over the weekend reporting that the patient seems improved versus previous visits. On my examination today, the patient is requesting discharge from the inpatient psychiatric unit today. She denies any suicidal or homicidal ideation, intent or plan on direct questioning and contracts for safety. I can elicit no depressive or hypomanic/manic symptoms. She denies any audiovisual hallucinations. I can elicit no delusional material. There is no evidence of any impairment in reality construction in this patient at this time. She denies side effects from medications. Education regarding discharge medication regimen provided. She has no physical complaints. Suicide and violence risk assessment on day of discharge both suggest lower imminent risk, and the patient's level of function is adequate for outpatient care. The patient does not meet criteria for ongoing involuntary psychiatric hospitalization and is requesting discharge from the inpatient unit today. The patient has maximized benefit from this inpatient psychiatric hospital stay. She will be discharged home today with psychiatric follow-up as arranged by counselor. Patient is also to follow-up with primary care. I have counseled the patient to abstain from any substances of abuse. I've counseled the patient regarding warning signs for need to return to the psychiatric emergency room as part of a general safety plan. Oral supplementation is not required with Invega Sustenna, and so I have discontinued the patient's oral Risperdal on discharge. Results Blood Pressure 95 / 52 Vital Signs Date Time Temp Pulse Resp B/P (MAP) Pulse Ox O2 Delivery O2 Flow Rate FiO2 07/10/17 06:01 98.3 76 18 95/52 (66) 100 Laboratory Results Test 06/29/17 06:58 Cholesterol Level 127 MG/DL (120-200) HDL Cholesterol 59.1 MG/DL (40.0-60.0) Hemoglobin A1c 5.1 % (4.3-6.0) LDL Cholesterol 59 MG/DL (0-99) Triglycerides Level 47 MG/DL (42-150) Summary of Procedures None done Imaging None done Pending results at discharge: No Medications # of Antipsychotic meds at D/C: 1 Approp Antipsych med options 1 - Minimum of three failed multiple trials of monotherapy. 2 - Documented plan to taper to monotherapy due to previous use of multiple meds OR cross-taper in progress at D/C. 3 - Documentation of augmentation of Clozapine. 4 - Justification other than those listed in allowable values 1-3, document here : Discharge Discharge Date: Jul 10, 2017 Discharge Diagnosis: (1) Other schizoaffective disorders Diagnosis: Principal (stabilized) ICD Code: F25.8 - Other schizoaffective disorders Pt Condition on Discharge: Stable Discharge Disposition: Discharge Home Discharge Instructions Diet Instructions: As Tolerated, No Restrictions Activities you can perform: Weight Bearing as Sherin Scheduled Appointment: Jori Clemens Appointment Date: Jul 11, 2017 Appointment Time: 8am-3pm New Orders: BASIC METABOLIC PROF - 1 Week New Medications: Paliperidone Palmitate Inj (Invega Sustenna Inj) 117 Mg/0.75 Ml Inj 117 MG IM Q28D for Schizophrenia, #1 VIAL 0 Refills This dose of Invega Sustenna is due on 08/07/2017. Lamotrigine (Lamictal) 25 Mg Tab 25 MG PO DAILY for Mental Health for 15 Days, #15 TAB 1 Refill Continued Medications: Omeprazole 40 mg (Omeprazole 40 mg) 40 Mg Cap 1 CAP PO Q DAY, #14 Discontinued Medications: Bupropion Hcl (Wellbutrin Sr) 150 Mg Tab 300 MG PO DAILY, TAB Nitrofurantoin Monohyd Macro (Macrobid) 100 Mg Cap 100 MG PO BID, #20 CAP Olanzapine (Zyprexa) 15 Mg Tab 15 MG PO DAILY, TAB Ondansetron (Zofran ODT) 4 Mg Tab 4 MG SL Q6H PRN for NAUSEA OR VOMITING, #4 TAB FOR NAUSEA/VOMITING Discharge Time > 30 minutes Mental Status Examination Appearance: Appropriate Consciousness: Alert Orientation: x4 Motor Activity: Normal gait, Other (no abnormal motor movements noted. No hand tremor, no cogwheeling, no hypomimia, no dystonias, no dyskinesias.) Speech: Unremarkable Language: Adequate Fund of Knowledge: Adequate Attention and Concentration: Adequate Memory: Unremarkable Mood: Appropriate Affect: Other (slightly blunted but much more reactive and appropriate versus earlier in the hospital stay) Thought Process & Associations: Intact, Logical, Goal directed, Linear Thought Content: Appropriate Hallucination Type: None Delusion Type: None Suicidal Ideation: No Suicidal Plan: No Suicidal Intention: No Homicidal Ideation: No Homicidal Plan: No Homicidal Intention: No Insight: Fair Judgment: Adequate (fair) Discharge/Advance Care Plan Health Problems: (1) Other schizoaffective disorders Goals to promote your health * To prevent worsening of your condition and complications * To maintain your health at the optimal level Directions to meet your goals Take your medications as prescribed Follow your dietary instruction Follow activity as directed Keep your appointments as scheduled Take your immunizations and boosters as scheduled If your symptoms worsen call your PCP, if no PCP go to Urgent Care Center or Emergency Room For 26/12 questions related to your inpatient stay or results of tests pending at discharge, please contact Dr. Enrique Maya at Smoking is Dangerous to Your Health. Avoid second hand smoking Enrique Maya MD Jul 10, 2017 11:27
[2017-07-10] MEDS ORDERED: PALIPERIDONE PALMITATE 117 MG/0.75 ML SYR IM ONE (11:30)
== END 2017-07-10 15:05 | disposition home or self-care (01) | DRG 885 ==
LOC: NEPD 16:48 → NEDA 06-29 00:53 → H260 06-29 03:02 → H270 06-29 20:05 → H260 07-06 18:26
PROVIDERS: ADMIT Psychiatry & Neurology Psychiatry; ATTEND Psychiatry & Neurology Psychiatry
DX: F25.8 Other schizoaffective disorders (principal); F31.9 Bipolar disorder, unspecified; Z81.8 Family history of other mental and behavioral disorders; K59.00 Constipation, unspecified
CPT/HCPCS: 80048; 80053; 80061; 80307; 81001; 83036; 84443; 84703; 85025; 87086; 93005; G0481; J1200; J1630; J2060; J2426; J7030; Q0163

== ENCOUNTER 2017-07-16 12:16 | Emergency (ER) | payer MEDICAID, OTHER ==
[~2017-07-16] VITALS: Ht 165.1 cm; Wt 55.0 kg
[~2017-07-16 12:16] MED LIST changes: +LAMO25 PO; -MACR100C PO; +PALI117P IM; -WELL150T PO; -ZOFR4TAB3 SL; -ZYPR15TA PO
[2017-07-16 12:17] VITALS: BP 105/71; PULSE 113; RESP 12; TEMP 98; O2SAT 97
--- NOTE | 2017-07-16 12:46 | PD ---
HPI Chief Complaint: Psychiatric Symptoms Time Seen by Provider: 12:35 Travel History International Travel<30 days: No Contact w/Intl Traveler<30days: No Traveled to known affect area: No History of Present Illness HPI 37-year-old female that presents to the ED for evaluation of psych. Patient comes here voluntarily for this. Patient was just released from the hospital about a week ago. Per patient when she was released from the hospital for schizoaffective disorder and psychosis her brother and ever since she's been having more anxiety and states that the voices are getting worse. Per patient the voices are telling her to hurt herself. She states compliance with her medication. Per patient she went to [facility] a couple of days ago and was released and she states that she still doesn't feel better. She is seeking help. She denies any suicidal or homicidal ideation at this time. Denies any drugs or alcohol. Denies any medical issues. She does appear to be interacting with some internal stimuli during my examination. Symptoms appear to have worsened for the past couple of weeks secondary to loss of brother. No allergies to medication. No other medical issues. Nothing seems to be making it better. PFSH Past Medical History ADD: Yes Bipolar Disorder: Yes Anxiety: Yes Depression: Yes Cancer: No Cardiovascular Problems: No Diabetes: No Diminished Hearing: No Headaches: No Psychiatric: Yes Reproductive: Yes (CURRENTLY (02/21/08) ) Immunizations Current: Yes Renal Failure: Yes Seizures: No ?: Not LMP: 06/2017 : 4 Para: 2 Miscarriage: 2 Ectopic : Yes (1X) Social History Alcohol Use: No Tobacco Use: No Substance Use: No Allergies-Medications (Allergen,Severity, Reaction): Coded Allergies: No Known Allergies (Unverified , 07/16/17) Reported Meds & Prescriptions Reported Meds & Active Scripts Active Invega Sustenna Inj (Paliperidone Palmitate) 117 Mg/0.75 Ml Inj 117 Mg IM Q28D This dose of Invega Sustenna is due on 08/07/2017. Lamictal (Lamotrigine) 25 Mg Tab 25 Mg PO DAILY 15 Days Omeprazole 40 mg (Omeprazole) 40 Mg Cap 1 Cap PO Q DAY Review of Systems Except as stated in HPI: all other systems reviewed are Neg Physical Exam Narrative GENERAL: SKIN: Warm and dry. HEAD: Atraumatic. Normocephalic. EYES: Pupils equal and round. No scleral icterus. No injection or drainage. ENT: No nasal bleeding or discharge. Mucous membranes pink and moist. NECK: Trachea midline. No JVD. CARDIOVASCULAR: Regular rate and rhythm. RESPIRATORY: No accessory muscle use. Clear to auscultation. Breath sounds equal bilaterally. GASTROINTESTINAL: Abdomen soft, non-tender, nondistended. Hepatic and splenic margins not palpable. MUSCULOSKELETAL: Extremities without clubbing, cyanosis, or edema. No obvious deformities. NEUROLOGICAL: Awake and alert. No obvious cranial nerve deficits. Motor grossly within normal limits. Five out of 5 muscle strength in the arms and legs. Normal speech. PSYCHIATRIC: Appropriate mood and affect; insight and judgment normal. Data Data Last Documented VS Vital Signs Date Time Temp Pulse Resp B/P (MAP) Pulse Ox O2 Delivery O2 Flow Rate FiO2 07/16/17 12:17 98.0 113 12 105/71 (82) 97 Orders Orders Urinalysis - C+S If Indicated (07/16/17 12:33) Drug Screen, Random Urine (07/16/17 12:33) Psych Screen (07/16/17 12:33) MDM Medical Decision Making Medical Screen Exam Complete: Yes Emergency Medical Condition: Yes Medical Record Reviewed: Yes Differential Diagnosis Depression versus suicidal ideation versus anxiety versus adjustment disorder versus mood disorder versus bipolar disorder versus schizophrenia versus paranoid disorder versus psychosis versus substance abuse versus alcohol abuse versus alcohol induced psychosis versus homicidality addition versus cutting versus personality disorder Narrative Course 37-year-old female that presents to the ED for evaluation of psych. Patient was properly examined and was found to have signs and symptoms consistent psychiatric illness. Patient does have blood work 2 weeks ago. No more blood work was ordered at this time. On the urine as she did appear to have a urinary tract infection before. We'll check for this. Patient was medically cleared. Okay to be seen by psych. Mental health screening was discussed with the patient. Diagnosis Primary Impression: Other schizoaffective disorders Candido Lehman Jul 16, 2017 12:46
[2017-07-16 12:54] VITALS: BP 101/67; PULSE 99; RESP 20; O2SAT 99
[2017-07-16] MEDS ORDERED: RISP2TAB2 PO (13:30)
[2017-07-16] MEDS ORDERED: HYDR50CA PO (13:30)
[2017-07-16] MEDS ORDERED: LORazepam 1 MG TAB PO ONE (14:00)
[2017-07-16 14:26] LABS: BILIRUBIN, URINE NEG (NEG); BLOOD, URINE NEG (NEG); GLUCOSE,URINE NEG (NEG); KETONE, URINE NEG (NEG); NITRITE,URINE NEG (NEG); PH, URINE 6.5 (5.0-8.5); SQUAMOUS EPITHELIAL CELL URINE 4 /hpf (0-5); URINE COLOR LIGHT-YELLOW (YELLW/STRAW); URINE LEUKOCYTE ESTERASE SMALL (NEG)
[2017-07-16 18:27] VITALS: BP 100/55; PULSE 83; RESP 18
[2017-07-16 22:07] VITALS: BP 102/55; PULSE 74; RESP 18; TEMP 98.8; O2SAT 98
[2017-07-17] MEDS ORDERED: risperiDONE 1 MG TAB PO ONE (00:45)
[2017-07-17 02:03] VITALS: BP 91/53; PULSE 77; RESP 18; TEMP 98.3; O2SAT 97
[2017-07-17 06:33] VITALS: BP 106/51; PULSE 89; RESP 16; TEMP 98.1; O2SAT 95
--- NOTE | 2017-07-17 12:57 | PD ---
History of Present Illness Chief Complaint: Psychiatric Symptoms Time Seen by Provider: 12:30 Travel History International Travel<30 Days: No Contact w/Intl Traveler<30days: No Known affected area: No Legal Status Legal Status: Voluntary History of Present Illness: History of Present Illness HPI 37-year-old female with history of schizoaffective disorder that presents to the ED for voluntary psychiatric evaluation . Per patient when she was released from the hospital on July 10. After her release she reports to me that she continued to hear voices and she went to [facility] where she was admitted overnight and released. She states that her er brother and ever since she's been having more anxiety and states that the voices are getting worse. She then states that she was hearing the voices for the past 3 weeks. Per patient the voices are telling her to hurt herself. She is seeking help. She denies any suicidal or homicidal ideation at this time. Patient has not attempted to harm herself or harm anyone else. The patient was monitored in secure environment she presented no behavioral concerns and no suicidality. She appeared anxious but was not observed responding to internal stimuli. Electronic medical record is reviewed. Toxicology is negative. Patient is seen in J pod. Alert, oriented, dressed in [facility] with fair hygiene and grooming. She appears anxious. Is not observed responding to internal stimuli. Speech is clear and logical. She admits to feeling anxious and overwhelmed with having to take care of her mother who she reports is very sick. States" I need to be taking care of my own mental health and it is difficult to care for my mother." The patient also reports that she was not given any medication to take at home and she was under the impression that she needed supplementation for the Invega Sustenna. She didn't receive a prescription from [facility] for Risperdal and Vistaril. She did not make her outpatient appointment that was scheduled for July 11. Patient sleep is fair. Denies any substance use. No suicidal or homicidal ideation, intent or plan. [facility] Past Medical History ADD: Yes Bipolar Disorder: Yes Anxiety: Yes Depression: Yes Cancer: No Cardiovascular Problems: No Diabetes: No Diminished Hearing: No Headaches: No Psychiatric: Yes Reproductive: Yes Immunizations Current: Yes Renal Failure: Yes Schizophrenia: Yes Seizures: No ?: Not LMP: 06/2017 : 6 Para: 2 Miscarriage: 2 : 1 Ectopic : Yes (1X) Past Surgical History Surgical History: No Previous Surgery Section: No Hysterectomy: No Psychiatric History Psychiatric History Hx Psychiatric Treatment: 5 YRS AGO DIAGNOSED AND TREATED FOR BIPOLAR, DEPRESSION, ANXIETY, ADHD. Reports history of ECT in the past. Was admitted to [facility] psychiatry June 29, 2016. History of Inpatient Treatment: Yes Guns or firearms in home: No Social History female, currently unemployed, lives with her mother. Has 2 children who live with their father. Has worked as a home health aide. Hx Alcohol Use: No Hx Tobacco Use: No Hx Substance Use: Yes (BINGE DRINKING UP TO 8 BEERS/DAY 3 X PER WEEK. LAST 4 YRS AGO.) Substance Use Type: Alcohol Hx of Substance Use Treatment: No Family Psychiatric History Reports mother with history of bipolar disorder Allergies-Medications (Allergen,Severity, Reaction): Coded Allergies: No Known Allergies (Unverified , 07/16/17) Reported Meds & Prescriptions Reported Meds & Active Scripts Active Lamictal (Lamotrigine) 25 Mg Tab 25 Mg PO DAILY 15 Days Reported Risperidone 2 Mg Tab 2 Mg PO BID Hydroxyzine Pamoate 50 Mg Cap 50 Mg PO TID Review of Systems Psychiatric: COMPLAINS OF: Anxiety Except as stated in HPI: all other systems reviewed are Neg Mental Status Examination Appearance: Appropriate (in [facility]) Consciousness: Alert Orientation: x4 Motor Activity: Normal gait Speech: Unremarkable Language: Adequate Fund of Knowledge: Adequate Attention and Concentration: Adequate Memory: Unremarkable Mood: Anxious Affect: Blunt Thought Process & Associations: Intact, Logical, Goal directed Thought Content: Hallucinations (patient reports auditory hallucinations for the past 3 weeks) Hallucination Type: Auditory (none reported at this time) Delusion Type: None Suicidal Ideation: No Suicidal Plan: No Suicidal Intention: No Homicidal Ideation: No Homicidal Plan: No Homicidal Intention: No Insight: Fair Judgment: Adequate MDM Medical Decision Making Medical Record Reviewed: Yes Assessment/Plan 37-year-old woman with history of schizoaffective disorder who presents on a voluntary status requesting an evaluation and with complaints of increase in auditory hallucinations that tell her to harm herself and that she is no good. The patient since her discharge from the hospital on the fifth of this month has been to [facility] with complaints of hallucinations as well. She states that since her discharge her brother has as well. The patient was monitored in secure environment and presented no behavioral concerns and no suicidality. She did appear anxious and requested medication for sleep and anxiety but did not appear to be internally stimulated. On examination she is not presenting symptoms of acute psychosis at this time. No suicidal or homicidal ideation. She was concerned that she wasn't given medication to take on a daily basis and was informed that the medication that she was prescribed is a long-acting medication. Her next scheduled appointment for injection is on August 07. She was given a prescription for Risperdal and Vistaril at [facility] and she would like to be able to take that as well. The patient is provided psychoeducation. At this time the patient is psychiatrically clear for discharge. She is instructed to follow up with Baljinder Merlos for outpatient care. Orders Orders Lorazepam (Ativan) (07/16/17 14:00) Diet Regular Basic (07/16/17 Dinner) Hydroxyzine Pamoate (Vistaril) (07/17/17 00:45) Risperidone (Risperdal) (07/17/17 00:45) Diet Regular Basic (07/17/17 Breakfast) Diet Regular Basic (07/17/17 Lunch) Results Vital Signs Date Time Temp Pulse Resp B/P (MAP) Pulse Ox O2 Delivery O2 Flow Rate FiO2 07/17/17 06:33 98.1 89 16 106/51 (69) 95 Room Air 07/17/17 02:03 98.3 77 18 91/53 (66) 97 Room Air 07/16/17 22:07 98.8 74 18 102/55 (71) 98 Room Air 07/16/17 18:27 83 18 100/55 (70) Room Air 07/16/17 12:54 99 20 101/67 (78) 99 Room Air Diagnosis Primary Impression: Other schizoaffective disorders Psychiatrically Cleared: Yes Med/ Other Pt Specific Info: No Change to Meds Disposition: 01 DISCHARGE HOME Condition: Stable Sonam Mccraydys Mayda Adelfo FIGUEROA Jul 17, 2017 12:57
--- NOTE | 2017-07-17 12:58 | PD ---
Physical Exam Date Seen by Provider: Jul 17, 2017 Time Seen by Provider: 12:57 Narrative 37-year-old female previously medically cleared for psychiatric evaluation voluntarily, has been seen by psychiatric staff and felt to be stable for discharge at this time. Patient maintains medical clearance. Follow-up is based on psychiatric note. Data Data Last Documented VS Vital Signs Date Time Temp Pulse Resp B/P (MAP) Pulse Ox O2 Delivery O2 Flow Rate FiO2 07/17/17 12:52 07/17/17 06:33 98.1 89 16 95 Room Air Orders Orders Urinalysis - C+S If Indicated (07/16/17 12:33) Drug Screen, Random Urine (07/16/17 12:33) Psych Screen (07/16/17 12:33) Lorazepam (Ativan) (07/16/17 14:00) Diet Regular Basic (07/16/17 Dinner) Hydroxyzine Pamoate (Vistaril) (07/17/17 00:45) Risperidone (Risperdal) (07/17/17 00:45) Diet Regular Basic (07/17/17 Breakfast) Diet Regular Basic (07/17/17 Lunch) Labs Laboratory Tests Test 07/16/17 12:45 Urine Color LIGHT-YELLOW Urine Turbidity CLEAR Urine pH 6.5 Urine Specific [place] 1.009 Urine Protein NEG mg/dL Urine Glucose (UA) NEG mg/dL Urine Ketones NEG mg/dL Urine Occult Blood NEG Urine Nitrite NEG Urine Bilirubin NEG Urine Urobilinogen LESS THAN 2.0 MG/DL Urine Leukocyte Esterase SMALL Urine RBC LESS THAN 1 /hpf Urine WBC 1 /hpf Urine Squamous Epithelial Cells 4 /hpf Microscopic Urinalysis Comment CULT NOT INDICATED Urine Opiates Screen NEG Urine Barbiturates Screen NEG Urine Amphetamines Screen NEG Urine Benzodiazepines Screen NEG Urine Cocaine Screen NEG Urine Cannabinoids Screen NEG MDM Medical Record Reviewed: Yes Supervised Visit with HOMAR: Yes Narrative Course 37-year-old female previously medically cleared for psychiatric evaluation voluntarily, has been seen by psychiatric staff and felt to be stable for discharge at this time. Patient maintains medical clearance. Follow-up is based on psychiatric note. Diagnosis Primary Impression: Other schizoaffective disorders Disposition: 01 DISCHARGE HOME Condition: Stable Leonard Maguire Jul 17, 2017 12:58
== END 2017-07-17 13:47 | disposition home or self-care (01) ==
LOC: NEPJ 12:16
DX: F25.9 Schizoaffective disorder, unspecified (principal); F41.9 Anxiety disorder, unspecified; F98.8 Other specified behavioral and emotional disorders with onset usually occurring in childhood and adolescence; F31.9 Bipolar disorder, unspecified; N19 Unspecified kidney failure; Z79.899 Other long term (current) drug therapy
CPT/HCPCS: 80307; 81001; 99283

== ENCOUNTER 2017-07-25 10:48 | Inpatient (IN) | payer MEDICAID, OTHER ==
[~2017-07-25] VITALS: Ht 165.1 cm; Wt 63.0 kg
[~2017-07-25 10:48] MED LIST changes: +HYDR50CA PO; -OMEP40CA2 PO; -PALI117P IM; +RISP2TAB2 PO
[2017-07-25 11:12] VITALS: BP 118/80; PULSE 82; RESP 18; TEMP 98.7; O2SAT 100
--- NOTE | 2017-07-25 12:09 | PD ---
HPI Chief Complaint: Psychiatric Symptoms Time Seen by Provider: 11:31 Travel History International Travel<30 days: No Contact w/Intl Traveler<30days: No Traveled to known affect area: No History of Present Illness HPI This 37-year-old female is brought by her ex-boyfriend. Patient has a history of bipolar disease and schizoaffective disorder. She was admitted to the hospital at the end of June and was just released a few days ago. She apparently has not been doing well. She has not been sleeping. She has been hearing voices which are telling her to kill herself. She denies history of suicidal attempts. It's unclear if she's been taking medications. She was reportedly discharged with the medications but has not been taking them because she believes she got injections instead. She is a recovering alcoholic and had a relapse about a month ago but denies recent alcohol. She has been having some back pain. There is no history of any injury. She says she's had some intermittent vomiting the last few days but she is hungry now PFSH Past Medical History ADD: Yes Bipolar Disorder: Yes Anxiety: Yes Depression: Yes Cancer: No Cardiovascular Problems: No Diabetes: No Diminished Hearing: No Headaches: No Psychiatric: Yes Reproductive: Yes Immunizations Current: Yes Renal Failure: Yes Schizophrenia: Yes Seizures: No ?: Not : 6 Para: 2 Miscarriage: 2 : 1 Ectopic : Yes (1X) Past Surgical History Surgical History: No Previous Surgery Section: No Hysterectomy: No Social History Alcohol Use: Yes (RARE) Tobacco Use: Yes (1/2 PPD) Substance Use: Yes Allergies-Medications (Allergen,Severity, Reaction): Coded Allergies: No Known Allergies (Unverified , 07/16/17) Reported Meds & Prescriptions Reported Meds & Active Scripts Active Lamictal (Lamotrigine) 25 Mg Tab 25 Mg PO DAILY 15 Days Reported Risperidone 2 Mg Tab 2 Mg PO BID Hydroxyzine Pamoate 50 Mg Cap 50 Mg PO TID Review of Systems General / Constitutional: No: Fever, Chills Eyes: No: Diploplia HENT: No: Headaches Cardiovascular: No: Chest Pain or Discomfort, Palpitations Respiratory: No: Cough, Shortness of Breath Gastrointestinal: Positive: Vomiting, No: Nausea Genitourinary: No: Urgency, Frequency Skin: No Rash, No Itching Neurologic: No: Weakness Endocrine: No: Heat Intolerance, Cold Intolerance Hematologic/Lymphatic: No: Easy Bruising Physical Exam Narrative GENERAL: Patient is alert but is very reluctant to answer any questions SKIN: Focused skin assessment warm/dry. HEAD: Atraumatic. Normocephalic. EYES: Pupils equal and round. No scleral icterus. No injection or drainage. ENT: No nasal bleeding or discharge. Mucous membranes pink and moist. NECK: Trachea midline. No JVD. CARDIOVASCULAR: Regular rate and rhythm. No murmur appreciated. RESPIRATORY: No accessory muscle use. Clear to auscultation. Breath sounds equal bilaterally. GASTROINTESTINAL: Abdomen soft, non-tender, nondistended. Hepatic and splenic margins not palpable. MUSCULOSKELETAL: No obvious deformities. No clubbing. No cyanosis. No edema. NEUROLOGICAL: Awake and alert. No obvious cranial nerve deficits. Motor grossly within normal limits. Limited speech. PSYCHIATRIC: Depressed mood Data Data Last Documented VS Vital Signs Date Time Temp Pulse Resp B/P (MAP) Pulse Ox O2 Delivery O2 Flow Rate FiO2 07/25/17 14:52 16 07/25/17 14:37 88 115/79 (91) 07/25/17 13:18 Room Air 07/25/17 11:12 98.7 100 Orders Orders Complete Blood Count With Diff (07/25/17 12:03) Comprehensive Metabolic Panel (07/25/17 12:03) Thyroid Stimulating Hormone (07/25/17 12:03) Ed Urine Pregnancytest Poc (07/25/17 12:03) Psych Screen (07/25/17 12:03) Drug Screen, Random Urine (07/25/17 12:03) Alcohol (Ethanol) (07/25/17 12:03) Sodium Chlor 0.9% 1000 Ml Inj (Ns 1000 M (07/25/17 12:15) Ondansetron Inj (Zofran Inj) (07/25/17 12:15) Diet Regular Basic (07/25/17 Lunch) Urinalysis - C+S If Indicated (07/25/17 12:18) Acetaminophen (Tylenol) (07/25/17 12:30) Sodium Chlor 0.9% 1000 Ml Inj (Ns 1000 M (07/25/17 13:15) Morphine Inj (Morphine Inj) (07/25/17 13:15) Ct Abd/Pel W/O Iv Contrast (07/25/17 13:09) Creatine Kinase (Cpk) (07/25/17 13:11) Hydromorphone Pf Inj (Dilaudid Pf Inj) (07/25/17 14:30) Admit Order (Ed Use Only) (07/25/17 14:58) Labs Laboratory Tests Test 07/25/17 12:10 07/25/17 12:15 Urine Opiates Screen NEG Urine Barbiturates Screen NEG Urine Amphetamines Screen NEG Urine Benzodiazepines Screen NEG Urine Cocaine Screen NEG Urine Cannabinoids Screen NEG White Blood Count 8.8 TH/MM3 Red Blood Count 4.07 MIL/MM3 Hemoglobin 12.3 GM/DL Hematocrit 37.5 % Mean Corpuscular Volume 91.9 FL Mean Corpuscular Hemoglobin 30.2 PG Mean Corpuscular Hemoglobin Concent 32.9 % Red Cell Distribution Width 12.6 % Platelet Count 246 TH/MM3 Mean Platelet Volume 7.1 FL Neutrophils (%) (Auto) 79.1 % Lymphocytes (%) (Auto) 7.7 % Monocytes (%) (Auto) 11.2 % Eosinophils (%) (Auto) 1.2 % Basophils (%) (Auto) 0.8 % Neutrophils # (Auto) 6.9 TH/MM3 Lymphocytes # (Auto) 0.7 TH/MM3 Monocytes # (Auto) 1.0 TH/MM3 Eosinophils # (Auto) 0.1 TH/MM3 Basophils # (Auto) 0.1 TH/MM3 CBC Comment DIFF FINAL Differential Comment Urine Collection Type CLEAN CATCH Urine Color STRAW Urine Turbidity CLEAR Urine pH 6.0 Urine Specific [place] 1.005 Urine Protein NEG mg/dL Urine Glucose (UA) NEG mg/dL Urine Ketones NEG mg/dL Urine Occult Blood TRACE Urine Nitrite NEG Urine Bilirubin NEG Urine Leukocyte Esterase TRACE Urine RBC 0-3 /hpf Urine WBC 0-2 /hpf Urine Squamous Epithelial Cells 0-5 /hpf Microscopic Urinalysis Comment CULT NOT INDICATED Blood Urea Nitrogen 24 MG/DL Creatinine 3.40 MG/DL Random Glucose 92 MG/DL Total Protein 6.9 GM/DL Albumin 3.7 GM/DL Calcium Level 9.0 MG/DL Alkaline Phosphatase 51 U/L Aspartate Amino Transf (AST/SGOT) 27 U/L Alanine Aminotransferase (ALT/SGPT) 32 U/L Total Bilirubin 0.6 MG/DL Sodium Level 137 MEQ/L Potassium Level 4.6 MEQ/L Chloride Level 102 MEQ/L Carbon Dioxide Level 28.9 MEQ/L Anion Gap 6 MEQ/L Estimat Glomerular Filtration Rate 15 ML/MIN Total Creatine Kinase 72 U/L Thyroid Stimulating Hormone 3rd Gen 1.380 uIU/ML Ethyl Alcohol Level LESS THAN 3 MG/DL MDM Medical Decision Making Medical Screen Exam Complete: Yes Emergency Medical Condition: Yes Medical Record Reviewed: Yes Differential Diagnosis Differential includes bipolar disorder, schizoaffective disorder, Narrative Course Medical clearance for psychiatric evaluation was performed. Her BUNs 24 with a creatinine of 3. 4. On July 06 she had lab work which showed a creatinine of 0.8. She does say that she has not been eating well. She is also complaining of flank pain. Her urine does not show blood and a CT will be done to assess for possible stone or other etiology of hydronephrosis. She'll be given IV fluids. She was given Tylenol for her flank pain but did not help and she has been given some morphine. Impression is acute kidney injury. CT scan is negative for hydronephrosis. CPK was checked and is normal Diagnosis Primary Impression: Acute kidney injury Admitting Information Admitting Physician Requests: Admit Atul Porras MD Jul 25, 2017 12:09
[2017-07-25] MEDS ORDERED: SODIUM CHLOR 0.9% 1000 ML INJ 1,000 ML IV ONE ×2 (12:15→13:15)
[2017-07-25] MEDS ORDERED: ONDANSETRON HCL 4 MG/2 ML VIAL IV PUSH ONE (12:15)
[2017-07-25 12:23] LABS: AUTOMATED NEUTROPHIL # 6.9 TH/MM3 (1.8-7.7); BASOPHIL # 0.1 TH/MM3 (0-0.2); BASOPHIL % 0.8 % (0.0-2.0); EOSINOPHIL # 0.1 TH/MM3 (0-0.4); EOSINOPHIL % 1.2 % (0.0-4.0); HEMATOCRIT 37.5 % (35.0-46.0); HEMOGLOBIN 12.3 GM/DL (11.6-15.3); LYMPH % 7.7 % (9.0-44.0); LYMPHOCYTE # 0.7 TH/MM3 (1.0-4.8); MEAN CELL VOLUME 91.9 FL (80.0-100.0); MEAN CORPUSCULAR HEMOGLOBIN 30.2 PG (27.0-34.0); MEAN CORPUSCULAR HGB CONC 32.9 % (32.0-36.0); MEAN PLATELET VOLUME 7.1 FL (7.0-11.0); MONO % 11.2 % (0.0-8.0); NEUT % 79.1 % (16.0-70.0); PLATELET COUNT 246 TH/MM3 (150-450); RED BLOOD COUNT 4.07 MIL/MM3 (4.00-5.30); RED CELL DISTRIBUTION WIDTH 12.6 % (11.6-17.2); WHITE BLOOD COUNT 8.8 TH/MM3 (4.0-11.0)
[2017-07-25 12:30] LABS: CHLORIDE 102 MEQ/L (98-107); SODIUM (NA) 137 MEQ/L (136-145)
[2017-07-25] MEDS ORDERED: ACETAMINOPHEN 325 MG TAB PO ONE (12:30)
[2017-07-25 12:34] LABS: ALBUMIN 3.7 GM/DL (3.4-5.0); BICARBONATE 28.9 MEQ/L (21.0-32.0); BLOOD UREA NITROGEN 24 MG/DL (7-18); GLUCOSE,RANDOM 92 MG/DL (74-106)
[2017-07-25 12:35] LABS: BILIRUBIN, URINE NEG (NEG); BLOOD, URINE TRACE (NEG); GLUCOSE,URINE NEG (NEG); KETONE, URINE NEG (NEG); NITRITE,URINE NEG (NEG); URINE LEUKOCYTE ESTERASE TRACE (NEG)
[2017-07-25 12:37] LABS: ALT (GPT) 32 U/L (10-53); AST (GOT) 27 U/L (15-37); GLOMERULAR FILTRATION RATE 15 ML/MIN (>89)
[2017-07-25 12:38] LABS: TOTAL BILIRUBIN ADULT 0.6 MG/DL (0.2-1.0); TOTAL PROTEIN 6.9 GM/DL (6.4-8.2)
[2017-07-25 12:40] LABS: ALKALINE PHOSPHATASE 51 U/L (45-117); SQUAMOUS EPITHELIAL CELL URINE 0-5 /hpf (0-5); URINE COLOR STRAW (YELLW/STRAW); WBC, URINE 0-2 /hpf (0-5)
[2017-07-25 12:41] LABS: RBC, URINE 0-3 /hpf (0-3)
[2017-07-25] MEDS ORDERED: MORPHINE SULFATE 4 MG/ML INJ IV PUSH ONE (13:15)
[2017-07-25 13:18] VITALS: BP 116/75; PULSE 80; RESP 16
[2017-07-25] MEDS ORDERED: HYDROmorphone HCL PF 2 MG/ML VIAL IV PUSH ONE (14:30)
[2017-07-25 14:37] VITALS: BP 115/79; PULSE 88; RESP 16
--- NOTE | 2017-07-25 14:42 | RADRPT ---
EXAM DATE/TIME: 07/25/2017 13:53 This report includes an Addendum and supersedes previous reports for this exam. [facility] COMPARISON: CT ABDOMEN & PELVIS W CONTRAST, January 22, 2014, 3:10. INDICATIONS : Back pain. ORAL CONTRAST: No oral contrast ingested. RADIATION DOSE: 8.98 CTDIvol (mGy) MEDICAL HISTORY : Renal failure. SURGICAL HISTORY : None. ENCOUNTER: Initial ACUITY: 1 day PAIN SCALE: 7/10 LOCATION: Bilateral back TECHNIQUE: Renal colic protocol. Volumetric scanning of the abdomen and pelvis was performed. Using automated exposure control and adjustment of the mA and/or kV according to patient size, radiation dose was kep t as low as reasonably achievable to obtain optimal diagnostic quality images. DICOM format image da ta is available electronically for review and comparison. FINDINGS: Right side: No calcified stones. No evidence of hydronephrosis. No calcifications along the course of the right ureter. Left side: No calcified stones. No evidence hydronephrosis. No calcifications along the course of the left ure ter. Bladder: Smooth margins. No calcifications within the lumen. Other: No free fluid in the cul-de-sac. No dilated loops of small or large bowel. No calcified gallstones. CONCLUSION: Negative renal colic CT. Wayne Villalba MD on July 25, 2017 at 14:37 Board Certified Radiologist. This report was verified electronically. ADDENDUM: The patient received oral contrast and the contrast does pass through to the rectum. No residual con trast in small bowel. Mild amount of stool in nondistended loops of colon. Wayne Villalba MD on July 25, 2017 at 16:57 Board Certified Radiologist. This report was verified electronically.
[2017-07-25] MEDS ORDERED: NALOXONE HCL 0.4 MG/ML AMP IV PUSH PRN (15:30)
[2017-07-25] MEDS ORDERED: SENNOSIDES 8.6 MG TAB PO PRN (15:30)
[2017-07-25] MEDS ORDERED: ACETAMINOPHEN 325 MG TAB PO PRN (15:30)
[2017-07-25] MEDS ORDERED: SODIUM CHLORIDE 0.9% FLUSH 10 ML FLUSH IV FLUSH PRN (15:30)
--- NOTE | 2017-07-25 15:35 | HHI.HP ---
[facility] No Primary Care Physician Admission Diagnosis ACUTE KIDNEY INJURY Diagnoses: Chief Complaint: Back pain Travel History International Travel<30 Days: No Contact w/Intl Traveler <30 Da: No Traveled to Known Affected Are: No History of Present Illness Patient is a 37-year-old female with a history of schizoaffective disorder who was recently discharged from the emergency room on 07/17 after voluntary presentation for hearing voices. She was seen by psychiatry when discharged home. Since that time she has appearance increased nausea and vomiting. She has had increased bilateral back pain and reports constipation with unsatisfactory bowel movements. Patient is seen in the emergency room today voluntarily because she is hearing voices which have told her to harm herself. She is accompanied by her boyfriend who says that she was complaining of quite a bit of pain and was vomiting and that is one of the reasons why he brought her to the hospital. She has been taking her medications without difficulty. She takes Lamictal, hydroxyzine and respiratory. She says recently her risperidone was increased when she went to emergency room visit 2 days ago in [place]. She notes since that her symptoms of abdominal discomfort have gotten worse. Patient been admitted for further evaluation Review of Systems Constitutional: DENIES: Diaphoretic episodes, Fatigue, Fever, Weight gain, Weight loss, Chills, Dizziness, Change in appetite, Night Sweats Endocrine: DENIES: Abnorml menstrual pattern, Heat/cold intolerance, Polydipsia , Polyuria, Polyphagia Eyes: DENIES: Blurred vision, Diplopia, Eye inflammation, Eye pain, Vision loss , Photosensitivity, Double Vision Ears, nose, mouth, throat: DENIES: Tinnitus, Hearing loss, Vertigo, Nasal discharge, Oral lesions, Throat pain, Hoarseness, Ear Pain, Running Nose, Epistaxis, Sinus Pain, Toothache, Odynophagia Respiratory: DENIES: Apneas, Cough, Snoring, Wheezing, Hemoptysis, Sputum production, Shortness of breath Cardiovascular: DENIES: Chest pain, Palpitations, Syncope, Dyspnea on Exertion , PND, Lower Extremity Edema, Orthopnea, Claudication Gastrointestinal: COMPLAINS OF: Nausea, Vomiting, DENIES: Abdominal pain, Black stools, Bloody stools, Constipation, Diarrhea, Difficulty Swallowing, Anorexia Genitourinary: DENIES: Abnormal vaginal bleeding, Dysmenorrhea, Dyspareunia, Sexual dysfunction, Urinary frequency, Urinary incontinence, Urgency, Hematuria , Dysuria, Nocturia, Vaginal discharge Musculoskeletal: COMPLAINS OF: Back pain, DENIES: Joint pain, Muscle aches, Stiffness, Joint Swelling, Neck pain Integumentary: DENIES: Abnormal pigmentation, Pruritus, Rash, Nail changes, Breast masses, Breast skin changes, Nipple discharge Hematologic/lymphatic: DENIES: Bruising, Lymphadenopathy Immunologic/allergic: DENIES: Eczema, Urticaria Neurologic: DENIES: Abnormal gait, Headache, Localized weakness, Paresthesias, Seizures, Speech Problems, Tremor, Poor Balance Psychiatric: DENIES: Anxiety, Confusion, Mood changes, Depression, Hallucinations, Agitation, Suicidal Ideation, Homicidal Ideation, Delusions Except as stated in HPI: all other systems reviewed are Neg Past Family Social History Past Medical History Schizoaffective disorder Past Surgical History Denies Reported Medications Reviewed in the EMR Allergies: Coded Allergies: No Known Allergies (Unverified , 07/16/17) Active Ordered Medications Reviewed in the EMR Family History No psychiatric family history Social History Lives with her boyfriend, no tobacco or alcohol dependency Physical Exam Vital Signs Vital Signs Date Time Temp Pulse Resp B/P (MAP) Pulse Ox O2 Delivery O2 Flow Rate FiO2 07/25/17 14:52 16 07/25/17 14:37 88 16 115/79 (91) 07/25/17 13:46 16 07/25/17 13:46 16 07/25/17 13:18 80 16 116/75 (89) Room Air 07/25/17 11:12 98.7 82 18 118/80 (93) 100 Physical Exam GENERAL: This is a well-nourished, well-developed patient, flat affect SKIN: No rashes, ecchymoses or lesions. Cool and dry. HEAD: Atraumatic. Normocephalic. No temporal or scalp tenderness. EYES: Pupils equal round and reactive. Extraocular motions intact. No scleral icterus. No injection or drainage. ENT: Nose without bleeding, purulent drainage or septal hematoma. Throat without erythema, tonsillar hypertrophy or exudate. Uvula midline. Airway patent. NECK: Trachea midline. No JVD or lymphadenopathy. Supple, nontender, no meningeal signs. CARDIOVASCULAR: Regular rate and rhythm without murmurs, gallops, or rubs. RESPIRATORY: Clear to auscultation. Breath sounds equal bilaterally. No wheezes , rales, or rhonchi. GASTROINTESTINAL: Abdomen soft, non-tender, nondistended. No hepato-splenomegaly , or palpable masses. No guarding. MUSCULOSKELETAL: Extremities without clubbing, cyanosis, or edema. No joint tenderness, effusion, or edema noted. No calf tenderness. Negative Homans sign bilaterally. NEUROLOGICAL: Awake and alert. Cranial nerves II through XII intact. Motor and sensory grossly within normal limits. Five out of 5 muscle strength in all muscle groups. Normal speech. Laboratory Laboratory Tests Test 07/25/17 12:10 07/25/17 12:15 Urine Opiates Screen NEG Urine Barbiturates Screen NEG Urine Amphetamines Screen NEG Urine Benzodiazepines Screen NEG Urine Cocaine Screen NEG Urine Cannabinoids Screen NEG White Blood Count 8.8 Red Blood Count 4.07 Hemoglobin 12.3 Hematocrit 37.5 Mean Corpuscular Volume 91.9 Mean Corpuscular Hemoglobin 30.2 Mean Corpuscular Hemoglobin Concent 32.9 Red Cell Distribution Width 12.6 Platelet Count 246 Mean Platelet Volume 7.1 Neutrophils (%) (Auto) 79.1 Lymphocytes (%) (Auto) 7.7 Monocytes (%) (Auto) 11.2 Eosinophils (%) (Auto) 1.2 Basophils (%) (Auto) 0.8 Neutrophils # (Auto) 6.9 Lymphocytes # (Auto) 0.7 Monocytes # (Auto) 1.0 Eosinophils # (Auto) 0.1 Basophils # (Auto) 0.1 CBC Comment DIFF FINAL Differential Comment Urine Collection Type CLEAN CATCH Urine Color STRAW Urine Turbidity CLEAR Urine pH 6.0 Urine Specific [place] 1.005 Urine Protein NEG Urine Glucose (UA) NEG Urine Ketones NEG Urine Occult Blood TRACE Urine Nitrite NEG Urine Bilirubin NEG Urine Leukocyte Esterase TRACE Urine RBC 0-3 Urine WBC 0-2 Urine Squamous Epithelial Cells 0-5 Microscopic Urinalysis Comment CULT NOT INDICATED Blood Urea Nitrogen 24 Creatinine 3.40 Random Glucose 92 Total Protein 6.9 Albumin 3.7 Calcium Level 9.0 Alkaline Phosphatase 51 Aspartate Amino Transf (AST/SGOT) 27 Alanine Aminotransferase (ALT/SGPT) 32 Total Bilirubin 0.6 Sodium Level 137 Potassium Level 4.6 Chloride Level 102 Carbon Dioxide Level 28.9 Anion Gap 6 Estimat Glomerular Filtration Rate 15 Total Creatine Kinase 72 Thyroid Stimulating Hormone 3rd Gen 1.380 Ethyl Alcohol Level LESS THAN 3 Result Diagram: 07/25/17 1215 07/25/17 1215 Imaging Last Impressions Abdomen/Pelvis CT 07/25/17 1309 Signed Impressions: Service Date/Time: Tuesday, July 25, 2017 13:53 - CONCLUSION: Negative renal colic CT. MD Niurka Huerta VTE Risk Assessment Niurka VTE Risk Assessment: Mod/High Risk (score >= 2) Caprini Risk Assessment Model Point Value = 1 Point Value = 2 Point Value = 3 Point Value = 5 Age 41-60 Minor surgery BMI > 25 kg/m2 Swollen legs Varicose veins or History of unexplained or recurrent spontaneous Oral contraceptives or hormone replacement Sepsis (< 1 month) Serious lung disease, including pneumonia (< 1 month) Abnormal pulmonary function Acute myocardial infarction Congestive heart failure (< 1 month) History of inflammatory bowel disease Medical patient at bed rest Age 61-74 Arthroscopic surgery Major open surgery (> 45 min) Laparoscopic surgery (> 45 min) Malignancy Confined to bed (> 72 hours) Immobilizing plaster cast Central venous access Age >= 75 History of VTE Family history of VTE Factor V Leiden Prothrombin [id number] Lupus anticoagulant Anticardiolipin antibodies Elevated serum homocysteine Heparin-induced thrombocytopenia Other congenital or acquired thrombophilia Stroke (< 1 month) Elective arthroplasty Hip, pelvis, or leg fracture Acute spinal cord injury (< 1 month) Prophylaxis Regimen Total Risk Factor Score Risk Level Prophylaxis Regimen 0-1 Low Early ambulation 2 Moderate Order ONE of the following: *Sequential Compression Device (SCD) *Heparin 5000 units SQ BID 3-4 Higher Order ONE of the following medications: *Heparin 5000 units SQ TID *Enoxaparin/Lovenox 40 mg SQ daily (WT < 150 kg, CrCl > 30 mL/min) *Enoxaparin/Lovenox 30 mg SQ daily (WT < 150 kg, CrCl > 10-29 mL/min) *Enoxaparin/Lovenox 30 mg SQ BID (WT < 150 kg, CrCl > 30 mL/min) AND/OR *Sequential Compression Device (SCD) 5 or more Highest Order ONE of the following medications: *Heparin 5000 units SQ TID (Preferred with Epidurals) *Enoxaparin/Lovenox 40 mg SQ daily (WT < 150 kg, CrCl > 30 mL/min) *Enoxaparin/Lovenox 30 mg SQ daily (WT < 150 kg, CrCl > 10-29 mL/min) *Enoxaparin/Lovenox 30 mg SQ BID (WT < 150 kg, CrCl > 30 mL/min) AND *Sequential Compression Device (SCD) Assessment and Plan Problem List: (1) Acute kidney injury ICD Code: N17.9 - Acute kidney failure, unspecified Status: Acute Plan: Etiology unclear, may be related to recent episodes of nausea and vomiting. The patient does not appear to be in rhabdomyolysis, we'll continue with IV fluids and follow-up studies Imaging unremarkable for kidney obstruction (2) Other schizoaffective disorders ICD Code: F25.8 - Other schizoaffective disorders Plan: Patient does endorse auditory hallucinations which are telling her to harm herself. Patient has been Decker acted. We'll continue with medications (3) Vomiting ICD Code: R11.10 - Vomiting, unspecified Status: Acute Plan: Etiology unclear at this time, may be medication related, check risperdone level bowel reg Code Status full code Physician Certification 2 Midnight Certification Type: Admission for Inpatient Services Order for Inpatient Services The services are ordered in accordance with Medicare regulations or non- Medicare payer requirements, as applicable. In the case of services not specified as inpatient-only, they are appropriately provided as inpatient services in accordance with the 2-midnight benchmark. Estimated LOS (days): 2 2 days is the estimated time the patient will need to remain in the hospital, assuming treatment plan goals are met and no additional complications. Post-Hospital Plan: Marissa Sosa MD Jul 25, 2017 15:35
[2017-07-25] MEDS ORDERED: LACTULOSE SYRUP 20 GM/30 ML CUP PO ONE (15:45)
[2017-07-25] MEDS ORDERED: BISACODYL EC 5 MG TABEC PO ONE (15:45)
[2017-07-25] MEDS: ONDANSETRON HCL 4 MG/2 ML VIAL IVP PRN (16:14)
[2017-07-25] MEDS: SODIUM CHLOR 0.9% 1000 ML INJ 1,000 ML IV SCH (16:45)
[2017-07-25 17:15] VITALS: BP 117/77; PULSE 74; RESP 16; O2SAT 99
[2017-07-25 17:50] VITALS: BP 123/76; PULSE 72; RESP 16; TEMP 96.4; O2SAT 97
[2017-07-25] MEDS: HEPARIN SODIUM - SQ 10,000 UNITS/ML VIAL SQ SCH (17:51)
[2017-07-25] MEDS ORDERED: clonazePAM 1 MG TAB PO PRN (19:00)
[2017-07-25] MEDS ORDERED: PROMETHAZINE HCL 25 MG TAB PO PRN (19:00)
[2017-07-25 20:00] VITALS: BP 115/78; PULSE 63; RESP 20; TEMP 96.4; O2SAT 99
[2017-07-25] MEDS: SODIUM CHLORIDE 0.9% FLUSH 10 ML FLUSH IV FLUSH SCH (20:30)
[2017-07-26] VITALS: BP 104/76; PULSE 64; RESP 18; TEMP 97; O2SAT 99
[2017-07-26] MEDS ORDERED: MORPHINE SULFATE 2 MG/ML INJ IV PUSH ONE (01:15)
[2017-07-26] MEDS: SODIUM CHLOR 0.9% 1000 ML INJ 1,000 ML IV SCH ×2 (01:25→09:27)
[2017-07-26 05:41] LABS: AUTOMATED NEUTROPHIL # 4.5 TH/MM3 (1.8-7.7); BASOPHIL % 0.5 % (0.0-2.0); EOSINOPHIL # 0.2 TH/MM3 (0-0.4); HEMATOCRIT 29.3 % (35.0-46.0); LYMPH % 16.4 % (9.0-44.0); LYMPHOCYTE # 1.1 TH/MM3 (1.0-4.8); MEAN CELL VOLUME 91.8 FL (80.0-100.0); MEAN CORPUSCULAR HEMOGLOBIN 31.4 PG (27.0-34.0); MEAN CORPUSCULAR HGB CONC 34.2 % (32.0-36.0); MEAN PLATELET VOLUME 7.1 FL (7.0-11.0); MONO % 10.3 % (0.0-8.0); MONOCYTE # 0.7 TH/MM3 (0-0.9); NEUT % 69.8 % (16.0-70.0); PLATELET COUNT 176 TH/MM3 (150-450); RED BLOOD COUNT 3.19 MIL/MM3 (4.00-5.30); RED CELL DISTRIBUTION WIDTH 13.2 % (11.6-17.2); WHITE BLOOD COUNT 6.5 TH/MM3 (4.0-11.0)
[2017-07-26 06:25] LABS: BICARBONATE 23.2 MEQ/L (21.0-32.0); CALCIUM 8.2 MG/DL (8.5-10.1); CREATININE 3.2 MG/DL (0.50-1.00)
[2017-07-26] MEDS: HEPARIN SODIUM - SQ 10,000 UNITS/ML VIAL SQ SCH (06:42)
[2017-07-26] MEDS: SODIUM CHLORIDE 0.9% FLUSH 10 ML FLUSH IV FLUSH SCH (08:05)
[2017-07-26] MEDS ORDERED: diphenhydrAMINE HCL 25 MG CAP PO SCH (08:45)
--- NOTE | 2017-07-26 08:48 | PD.PSY.CON ---
Provisional Diagnosis Admission Date Jul 25, 2017 at 15:00 [place] I. Schizoaffective disorder, bipolar type [place] II. Autism spectrum disorder?? [place] III. Acute kidney injury [place] IV. A very recent psychiatric hospitalization [place] V. 40 History of Present Illness Service Psychiatry Consult Requested By Medical team Reason for Consult Psychosis Primary Care Physician No Primary Care Physician HPI The patient is a 37-year-old woman, with psychiatric history of schizoaffective disorder, bipolar type, autism spectrum disorder, about 5 psychotic hospitalizations, her last hospitalization was here at [facility] in June 2017 under the care of , Dr. Maya, documentation was reviewed, no previous suicidal attempts, outpatient psychiatric care at [facility] , she is on Invega Sustenna, unknown dose, her next shot is due August 06, 2017, she is also a Lamictal 25 mg twice a day, hydroxyzine 25 3 times a day. No significant medical history, who presents in [facility] complaining of hearing voices. Patient is seen in the emergency room today voluntarily because she is hearing voices which have told her to harm herself. She is accompanied by her boyfriend who says that she was complaining of quite a bit of pain and was vomiting and that is one of the reasons why he brought her to the hospital. She has been taking her medications without difficulty. She takes Lamictal, hydroxyzine and respiratory. She says recently her risperidone was increased when she went to emergency room visit 2 days ago in [place]. She notes since that her symptoms of abdominal discomfort have gotten worse. Patient been admitted for further evaluation. Patient is admitted under observation in [place] due to acute kidney injury, with the creatinine in 3.4, BUN 24. Chart was reviewed. Case was discussed with primary medical team and staff. On psychiatric evaluation the patient is found sleeping, she is accompanied with one-to-one sitter. She is easily arousable. Calm and cooperative. With prominent flat affect, psychomotor retardation and some fine bilateral tremors. The patient reports that she came to the ER because she has been hearing voices telling her to kill herself. She described the voices are episodic, last for some minutes, usually male and female voices, very loud, scary, coming sometimes for inside or outside her head, broadcasting type, usually making derogatory comments toward her, talking about them, and also telling her directly to kill herself. She says that since she was discharged from [facility] about month ago, she has not feeling okay, her brother 3 days after she was discharged and she also has been feeling depressed, with lack of motivation, isolation, feelings of hopelessness and helplessness, suicidal thoughts. She reports that she has been taking her medications as prescribed, even though the hydroxyzine give her dry mouth. This moment the patient denies suicidal and homicidal ideation, there are no visual or auditory hallucination presents at this moment. Last time patient her voices was last night. The patient is fully oriented 3, is logical, coherent and relevant. There is no loosening of associations, flight of ideas, thought insertion, ideas of reference or prominent paranoia at this moment. The patient reported that at times she does feel paranoid toward the people around her "thinking that they want to kill me or harm me". The patient denies the use of illegal drugs and alcohol. Review of Systems Constitutional: DENIES: Diaphoretic episodes, Fatigue, Fever, Weight gain, Weight loss, Chills, Dizziness, Change in appetite, Night Sweats Endocrine: DENIES: Abnorml menstrual pattern, Heat/cold intolerance, Polydipsia , Polyuria, Polyphagia Eyes: DENIES: Blurred vision, Diplopia, Eye inflammation, Eye pain, Vision loss , Photosensitivity, Double Vision Ears, nose, mouth, throat: DENIES: Tinnitus, Hearing loss, Vertigo, Nasal discharge, Oral lesions, Throat pain, Hoarseness, Ear Pain, Running Nose, Epistaxis, Sinus Pain, Toothache, Odynophagia Respiratory: DENIES: Apneas, Cough, Snoring, Wheezing, Hemoptysis, Sputum production, Shortness of breath Cardiovascular: DENIES: Chest pain, Palpitations, Syncope, Dyspnea on Exertion , PND, Lower Extremity Edema, Orthopnea, Claudication Gastrointestinal: DENIES: Abdominal pain, Black stools, Bloody stools, Constipation, Diarrhea, Nausea, Vomiting, Difficulty Swallowing, Anorexia Musculoskeletal: DENIES: Joint pain, Muscle aches, Stiffness, Joint Swelling, Back pain, Neck pain Hematologic/lymphatic: DENIES: Bruising, Lymphadenopathy Neurologic: COMPLAINS OF: Tremor, DENIES: Abnormal gait, Headache, Localized weakness, Paresthesias, Seizures, Speech Problems, Poor Balance Psychiatric: COMPLAINS OF: Anxiety, Hallucinations, Suicidal Ideation, DENIES: Confusion, Mood changes, Depression, Agitation, Homicidal Ideation, Delusions Past Family Social History Coded Allergies: No Known Allergies (Unverified , 07/16/17) Active Scripts Lamotrigine (Lamictal) 25 Mg Tab, 25 MG PO DAILY for Mental Health for 15 Days, #15 TAB 1 Refill Prov:Enrique Maya MD 07/10/17 Reported Medications Risperidone (Risperidone) 2 Mg Tab, 2 MG PO BID, #30 TAB 0 Refills 07/16/17 Hydroxyzine Pamoate (Hydroxyzine Pamoate) 50 Mg Cap, 50 MG PO TID, CAP 0 Refills 07/16/17 Current Medications Medications (Trade) Dose Ordered Sig/Ewelina Route Start Time Stop Time Status Last Admin Sodium Chloride 1,000 ml @ 100 mls/hr Q10H IV 07/25/17 15:27 07/26/17 01:25 (NS Flush) 2 ml UNSCH PRN IV FLUSH 07/25/17 15:30 (NS Flush) 2 ml BID IV FLUSH 07/25/17 21:00 07/25/17 20:30 (Tylenol) 650 mg Q4H PRN PO 07/25/17 15:30 (Zofran Inj) 4 mg Q6H PRN IVP 07/25/17 15:30 07/25/17 16:14 (Heparin Inj) 5,000 units Q12H SQ 07/25/17 18:00 07/26/17 06:42 (Narcan Inj) 0.4 mg UNSCH PRN IV PUSH 07/25/17 15:30 (Senokot) 17.2 mg Q12H PRN PO 07/25/17 15:30 (Phenergan) 25 mg Q6H PRN PO 07/25/17 19:00 07/25/17 20:29 (KlonoPIN) 1 mg Q8HR PRN PO 07/25/17 19:00 07/25/17 20:29 (risperDAL) 1 mg Q12HR PO 07/26/17 09:00 UNV Family Psych History She denies family psychiatric history Social History Patient was born and raised in [place], she lives with her mother in [place], she has 2 kids, one 7 and other 9 years old, they live with their father , employed, has a boyfriend, her highest level of education is some college Patient's Strengths (min. 2) Family support, established outpatient care Physical Exam Patient has mild bilateral hand tremors, marked psychomotor retardation, some stiffness Vital Signs Vital Signs Date Time Temp Pulse Resp B/P (MAP) Pulse Ox O2 Delivery O2 Flow Rate FiO2 07/26/17 00:00 97.0 64 18 104/76 (85) 99 07/25/17 17:15 Room Air I/O 07/26/17 07/26/17 07/27/17 08:00 16:00 00:00 Intake Total 1894 ml Balance 1894 ml Lab Results Test 07/25/17 12:10 07/25/17 12:15 07/25/17 15:40 07/26/17 05:15 Urine Opiates Screen NEG Urine Barbiturates Screen NEG Urine Amphetamines Screen NEG Urine Benzodiazepines Screen NEG Urine Cocaine Screen NEG Urine Cannabinoids Screen NEG White Blood Count 8.8 TH/MM3 6.5 TH/MM3 Red Blood Count 4.07 MIL/MM3 3.19 MIL/MM3 Hemoglobin 12.3 GM/DL 10.0 GM/DL Hematocrit 37.5 % 29.3 % Mean Corpuscular Volume 91.9 FL 91.8 FL Mean Corpuscular Hemoglobin 30.2 PG 31.4 PG Mean Corpuscular Hemoglobin Concent 32.9 % 34.2 % Red Cell Distribution Width 12.6 % 13.2 % Platelet Count 246 TH/MM3 176 TH/MM3 Mean Platelet Volume 7.1 FL 7.1 FL Neutrophils (%) (Auto) 79.1 % 69.8 % Lymphocytes (%) (Auto) 7.7 % 16.4 % Monocytes (%) (Auto) 11.2 % 10.3 % Eosinophils (%) (Auto) 1.2 % 3.0 % Basophils (%) (Auto) 0.8 % 0.5 % Neutrophils # (Auto) 6.9 TH/MM3 4.5 TH/MM3 Lymphocytes # (Auto) 0.7 TH/MM3 1.1 TH/MM3 Monocytes # (Auto) 1.0 TH/MM3 0.7 TH/MM3 Eosinophils # (Auto) 0.1 TH/MM3 0.2 TH/MM3 Basophils # (Auto) 0.1 TH/MM3 0.0 TH/MM3 CBC Comment DIFF FINAL DIFF FINAL Differential Comment Urine Collection Type CLEAN CATCH Urine Color STRAW Urine Turbidity CLEAR Urine pH 6.0 Urine Specific [place] 1.005 Urine Protein NEG mg/dL Urine Glucose (UA) NEG mg/dL Urine Ketones NEG mg/dL Urine Occult Blood TRACE Urine Nitrite NEG Urine Bilirubin NEG Urine Leukocyte Esterase TRACE Urine RBC 0-3 /hpf Urine WBC 0-2 /hpf Urine Squamous Epithelial Cells 0-5 /hpf Microscopic Urinalysis Comment CULT NOT INDICATED Blood Urea Nitrogen 24 MG/DL 20 MG/DL Creatinine 3.40 MG/DL 3.20 MG/DL Random Glucose 92 MG/DL 105 MG/DL Total Protein 6.9 GM/DL Albumin 3.7 GM/DL Calcium Level 9.0 MG/DL 8.2 MG/DL Alkaline Phosphatase 51 U/L Aspartate Amino Transf (AST/SGOT) 27 U/L Alanine Aminotransferase (ALT/SGPT) 32 U/L Total Bilirubin 0.6 MG/DL Sodium Level 137 MEQ/L 141 MEQ/L Potassium Level 4.6 MEQ/L 4.3 MEQ/L Chloride Level 102 MEQ/L 110 MEQ/L Carbon Dioxide Level 28.9 MEQ/L 23.2 MEQ/L Anion Gap 6 MEQ/L 8 MEQ/L Estimat Glomerular Filtration Rate 15 ML/MIN 16 ML/MIN Total Creatine Kinase 72 U/L Thyroid Stimulating Hormone 3rd Gen 1.380 uIU/ML Ethyl Alcohol Level LESS THAN 3 MG/DL Mental Status Examination Appearance: Appropriate Consciousness: Alert Orientation: x4 Motor Activity: Normal gait Speech: Unremarkable Language: Adequate Fund of Knowledge: Adequate Attention and Concentration: Adequate Memory: Unremarkable Mood: Appropriate Affect: Appropriate Thought Process & Associations: Intact Thought Content: Delusional Hallucination Type: Auditory (commanding type) Delusion Type: Paranoid Suicidal Ideation: No Suicidal Plan: No Suicidal Intention: No Homicidal Ideation: No Homicidal Plan: No Homicidal Intention: No Insight: Fair Judgment: Impulsive Assessment & Plan Problem List: (1) Schizoaffective disorder, bipolar type ICD Codes: F25.0 - Schizoaffective disorder, bipolar type Assessment & Plan: On psychiatric evaluation today the patient presents with commanding type auditory visual hallucinations for the last week, exacerbated in severity, intensity and frequency in the last 3 days. Patient reports hearing voices usually telling her to kill herself, voices that come sometimes from inside her head, also from outside, female and male voices, episodic, they can also make derogatory comments toward her, and could be broadcasting type. She also reports increased paranoia around people, she believes that people might have the intention to harm her or kill her. She related that 3 days after she was discharged from [facility] in June her brother she has been experiencing depression, lack of motivation, hopelessness and helplessness. I also note that the patient is prominently EPS symptoms, bilateral mild tremors, psychomotor retardation stiffness, that could be related with parkinsonism secondary to the use of highly anti-dopaminergic Depo medication, in this case Invega. At this moment the patient represents increased danger to self and others, she needs psychiatric hospitalization for stabilization. I will start a very low dose of Risperdal 1 mg twice a day for psychosis, with Benadryl 25 mg 3 times a day for EPS symptoms. Her next dose of Invega Sustenna is due in August 06, 2017. Brief supportive psychotherapy and psychoeducation provided. Please, transfer patient to [facility] once medically appropriate. She she needs to continue with a 1:1 sitter in the medical floor for safety. Assessment & Plan Estimated LOS: Scott Kathleen MD Jul 26, 2017 08:48
[2017-07-26] MEDS ORDERED: risperiDONE 1 MG TAB PO SCH (09:00)
[2017-07-26] MEDS: ONDANSETRON HCL 4 MG/2 ML VIAL IVP PRN (09:55)
[2017-07-26] MEDS ORDERED: BISACODYL EC 5 MG TABEC PO ONE (10:30)
--- NOTE | 2017-07-26 11:50 | HHI.DS ---
Discharge Summary Admission Date Jul 25, 2017 at 15:00 Discharge Date: Jul 26, 2017 Admitting Diagnosis ACUTE KIDNEY INJURY (1) Acute kidney injury ICD Code: N17.9 - Acute kidney failure, unspecified Status: Acute (2) Other schizoaffective disorders ICD Code: F25.8 - Other schizoaffective disorders (3) Vomiting ICD Code: R11.10 - Vomiting, unspecified Status: Acute Procedures NONE Brief History - From Admission Patient is a 37-year-old female with a history of schizoaffective disorder who was recently discharged from the emergency room on 07/17 after voluntary presentation for hearing voices. She was seen by psychiatry when discharged home. Since that time she has appearance increased nausea and vomiting. She has had increased bilateral back pain and reports constipation with unsatisfactory bowel movements. Patient is seen in the emergency room today voluntarily because she is hearing voices which have told her to harm herself. She is accompanied by her boyfriend who says that she was complaining of quite a bit of pain and was vomiting and that is one of the reasons why he brought her to the hospital. She has been taking her medications without difficulty. She takes Lamictal, hydroxyzine and respiratory. She says recently her risperidone was increased when she went to emergency room visit 2 days ago in [place]. She notes since that her symptoms of abdominal discomfort have gotten worse. Patient been admitted for further evaluation CBC/BMP: 07/26/17 0515 07/26/17 0515 Significant Findings Laboratory Tests Test 07/25/17 12:10 07/25/17 12:15 07/25/17 15:40 07/26/17 05:15 Neutrophils (%) (Auto) 79.1 % (16.0-70.0) Lymphocytes (%) (Auto) 7.7 % (9.0-44.0) Monocytes (%) (Auto) 11.2 % (0.0-8.0) 10.3 % (0.0-8.0) Lymphocytes # (Auto) 0.7 TH/MM3 (1.0-4.8) Monocytes # (Auto) 1.0 TH/MM3 (0-0.9) Urine Leukocyte Esterase TRACE (NEG) Blood Urea Nitrogen 24 MG/DL (7-18) 20 MG/DL (7-18) Creatinine 3.40 MG/DL (0.50-1.00) 3.20 MG/DL (0.50-1.00) Estimat Glomerular Filtration Rate 15 ML/MIN (>89) 16 ML/MIN (>89) Red Blood Count 3.19 MIL/MM3 (4.00-5.30) Hemoglobin 10.0 GM/DL (11.6-15.3) Hematocrit 29.3 % (35.0-46.0) Calcium Level 8.2 MG/DL (8.5-10.1) Chloride Level 110 MEQ/L (98-107) Imaging Last Impressions Abdomen/Pelvis CT 07/25/17 1309 Signed Impressions: Service Date/Time: Tuesday, July 25, 2017 13:53 - CONCLUSION: Negative renal colic CT. Wayne Villalba MD ADDENDUM: The patient received oral contrast and the contrast does pass through to the rectum. No residual contrast in small bowel. Mild amount of stool in nondistended loops of colon. Wayne Villalba MD PE at Discharge GENERAL: This is a well-nourished, well-developed patient, anxious CARDIOVASCULAR: Regular rate and rhythm without murmurs, gallops, or rubs. RESPIRATORY: Clear to auscultation. Breath sounds equal bilaterally. No wheezes , rales, or rhonchi. GASTROINTESTINAL: Abdomen soft, non-tender, nondistended. Normal active bowel sounds MUSCULOSKELETAL: Extremities without clubbing, cyanosis, or edema. NEURO: Alert & Oriented x4 to person, place, time, situation. Moves all ext x4 Pt update on day of discharge Still with hallucinations, renal function mildly improved after hydration Still complains of deep flank pain Hospital Course Monitored overnight for improvement Addendum on CT concerning to stool retention Patient transferred to [facility] for further eval She will need nephrology eval, continued IV hydration and Acute Psychiatric care. Pt Condition on Discharge: Stable Discharge Disposition: Disc to Psych Care Fac Discharge Time: <= 30 minutes Discharge Instructions DIET: Follow Instructions for: As Tolerated, No Restrictions Activities you can perform: Regular-No Restrictions Discontinued Medications: Risperidone (Risperidone) 2 Mg Tab 2 MG PO BID, #30 TAB 0 Refills Additional Information Please consult Medicine and Nephrology for follow up Marissa Tucker MD Jul 26, 2017 11:50
[2017-07-26] MEDS ORDERED: LAMO25TA PO (13:39)
[2017-07-26] MEDS ORDERED: RISP2TAB37 PO (13:40)
[2017-07-26] MEDS ORDERED: HYDR50TA94 PO (13:41)
[2017-07-28 11:52] LABS: OH-RISPERIDONE 45.7 ng/mL; RISPERIDONE LESS THAN 1.0 ng/mL
== END 2017-07-26 11:22 | DRG 683 ==
LOC: PHED 10:48 → PHEDA 15:00 → PH3B 17:26
PROVIDERS: ADMIT Hospitalist; ATTEND Hospitalist
DX: N17.9 Acute kidney failure, unspecified (principal); F84.0 Autistic disorder; F25.0 Schizoaffective disorder, bipolar type; F32.9 Major depressive disorder, single episode, unspecified; F17.210 Nicotine dependence, cigarettes, uncomplicated; R10.9 Unspecified abdominal pain; F41.9 Anxiety disorder, unspecified; K59.00 Constipation, unspecified; R11.2 Nausea with vomiting, unspecified; M54.9 Dorsalgia, unspecified; R25.1 Tremor, unspecified; R68.2 Dry mouth, unspecified; F10.21 Alcohol dependence, in remission; Z79.899 Other long term (current) drug therapy
CPT/HCPCS: 74176; 80048; 80053; 80307; 80342; 81001; 82550; 84443; 84703; 85025; 96361; 96374; 96375; J1170; J1644; J2270; J2405; J7030; Q0169

== ENCOUNTER 2017-07-26 12:17 | Inpatient (IN) | payer OTHER ==
[2017-07-26 12:36] VITALS: BP 112/68; PULSE 54; RESP 16; TEMP 98.3; O2SAT 99
[2017-07-26] MEDS ORDERED: LORazepam 0.5 MG TAB PO PRN (13:00)
[2017-07-26] MEDS ORDERED: LORazepam 2 MG/ML VIAL IM PRN ×2 (13:00)
[2017-07-26] MEDS ORDERED: ALUMINUM/MAGNESIUM/SIMETH 30 ML CUP PO PRN (13:00)
--- NOTE | 2017-07-26 13:07 | HHI.HP ---
Provisional Diagnosis Admission Date Jul 26, 2017 at 12:17 [facility] I. Schizoaffective disorder, bipolar type, autism spectrum disorder [facility] II. Autism spectrum disorder [facility] III. Acute kidney injury [facility] IV. Psychiatric hospitalization a month ago [facility] V. 40 Certification of Person's Competence To Provide Express and Informed Consent I have personally examined Sarah Santos , a person being served at [facility] on, Jul 26, 2017 13:02. Express and informed consent means consent voluntarily given in writing, by a competent person, after sufficient explanation and disclosure of the subject matter involved to enable the person to make a knowing and willful decision without any element of force, fraud, deceit, duress, or other form of constraint or coercion. This person is 18 years of age or older, is not now known to be incompetent to consent to treatment with a guardian advocate, and does not have a health care surrogate or proxy currently making medical treatment decisions. I have found this person to be one of the following: [] Competent to provide express and informed consent, as defined above, for voluntary admission to this facility and is competent to provide express and informed consent for treatment. He/she has the consistent capacity to make well reasoned, willful, and knowing decisions concerning his or her medical or mental health treatment. The person fully and consistently understands the purpose of the admission for examination/placement and is fully capable of personally exercising all rights assured [place] Incompetent to provide express and informed consent to voluntary admission, and this is incompetent to provide express and informed consent to treatment. The person must be transferred to involuntary status and a petition for a guardian advocate filed with the Circuit Court. [x] Refusing to provide express and informed consent to voluntary admission but is competent to provide express and informed consent for treatment. The person must be discharged or transferred to involuntary status. Form shall be completed within 24 hours of a person's arrival at the receiving facility and filed in the clinical record of each person: 1. Admitted on a voluntary basis 2. Permitted to provide express and informed consent to his/her own treatment 3. Allowed to transfer from involuntary to voluntary status 4. Prior to permitting a person to consent to his or her own treatment after having been previously found incompetent to consent to treatment. History of Present Illness Capacity: Has Capacity HPI Late entry: The patient was seen this morning at 7:10 AM in [place]. The patient is a 37-year-old woman, with psychiatric history of schizoaffective disorder, bipolar type, autism spectrum disorder, about 5 psychotic hospitalizations, her last hospitalization was here at [place] in June 2017 under the care of , Dr. Maya, documentation was reviewed, no previous suicidal attempts, outpatient psychiatric care at [facility] , she is on Invega Sustenna, unknown dose, her next shot is due August 06, 2017, she is also a Lamictal 25 mg twice a day, hydroxyzine 25 3 times a day. No significant medical history, who presents in [facility] complaining of hearing voices. Patient is seen in the emergency room today voluntarily because she is hearing voices which have told her to harm herself. She is accompanied by her boyfriend who says that she was complaining of quite a bit of pain and was vomiting and that is one of the reasons why he brought her to the hospital. She has been taking her medications without difficulty. She takes Lamictal, hydroxyzine and respiratory. She says recently her risperidone was increased when she went to emergency room visit 2 days ago in [place]. She notes since that her symptoms of abdominal discomfort have gotten worse. Patient been admitted for further evaluation. Patient is admitted under observation in [place] due to acute kidney injury, with the creatinine in 3.4, BUN 24. Chart was reviewed. Case was discussed with primary medical team and staff. On psychiatric evaluation the patient is found sleeping, she is accompanied with one-to-one sitter. She is easily arousable. Calm and cooperative. With prominent flat affect, psychomotor retardation and some fine bilateral tremors. The patient reports that she came to the ER because she has been hearing voices telling her to kill herself. She described the voices are episodic, last for some minutes, usually male and female voices, very loud, scary, coming sometimes for inside or outside her head, broadcasting type, usually making derogatory comments toward her, talking about them, and also telling her directly to kill herself. She says that since she was discharged from [place] about month ago, she has not feeling okay, her brother 3 days after she was discharged and she also has been feeling depressed, with lack of motivation, isolation, feelings of hopelessness and helplessness, suicidal thoughts. She reports that she has been taking her medications as prescribed, even though the hydroxyzine give her dry mouth. This moment the patient denies suicidal and homicidal ideation, there are no visual or auditory hallucination presents at this moment. Last time patient her voices was last night. The patient is fully oriented 3, is logical, coherent and relevant. There is no loosening of associations, flight of ideas, thought insertion, ideas of reference or prominent paranoia at this moment. The patient reported that at times she does feel paranoid toward the people around her "thinking that they want to kill me or harm me". The patient denies the use of illegal drugs and alcohol. Review of Systems Constitutional: DENIES: Diaphoretic episodes, Fatigue, Fever, Weight gain, Weight loss, Chills, Dizziness, Change in appetite, Night Sweats Endocrine: DENIES: Abnorml menstrual pattern, Heat/cold intolerance, Polydipsia , Polyuria, Polyphagia Eyes: DENIES: Blurred vision, Diplopia, Eye inflammation, Eye pain, Vision loss , Photosensitivity, Double Vision Ears, nose, mouth, throat: DENIES: Tinnitus, Hearing loss, Vertigo, Nasal discharge, Oral lesions, Throat pain, Hoarseness, Ear Pain, Running Nose, Epistaxis, Sinus Pain, Toothache, Odynophagia Respiratory: DENIES: Apneas, Cough, Snoring, Wheezing, Hemoptysis, Sputum production, Shortness of breath Cardiovascular: DENIES: Chest pain, Palpitations, Syncope, Dyspnea on Exertion , PND, Lower Extremity Edema, Orthopnea, Claudication Gastrointestinal: DENIES: Abdominal pain, Black stools, Bloody stools, Constipation, Diarrhea, Nausea, Vomiting, Difficulty Swallowing, Anorexia Genitourinary: DENIES: Abnormal vaginal bleeding, Dysmenorrhea, Dyspareunia, Sexual dysfunction, Urinary frequency, Urinary incontinence, Urgency, Hematuria , Dysuria, Nocturia, Vaginal discharge Musculoskeletal: COMPLAINS OF: Back pain, DENIES: Joint pain, Muscle aches, Stiffness, Joint Swelling, Neck pain Integumentary: DENIES: Abnormal pigmentation, Pruritus, Rash, Nail changes, Breast masses, Breast skin changes, Nipple discharge Hematologic/lymphatic: DENIES: Bruising, Lymphadenopathy Immunologic/allergic: DENIES: Eczema, Urticaria Neurologic: COMPLAINS OF: Tremor, DENIES: Abnormal gait, Headache, Localized weakness, Paresthesias, Seizures, Speech Problems, Poor Balance Psychiatric: COMPLAINS OF: Depression, Hallucinations, Delusions Past Psych History Violence risk - self (6 mos) Elevated Substance Abuse History Drugs/Alcohol past 12 months She denies the use of illegal drugs or alcohol Past Family Social History Coded Allergies: No Known Allergies (Unverified , 07/16/17) Discontinued Reported Medications Risperidone (Risperidone) 2 Mg Tab, 2 MG PO BID, #30 TAB 0 Refills 07/16/17 Current Medications Medications (Trade) Dose Ordered Sig/Ewelina Route Start Time Stop Time Status Last Admin (Ativan) 1 mg Q6H PRN PO 07/26/17 13:00 UNV (Ativan Inj) 1 mg Q6H PRN IM 07/26/17 13:00 UNV (Ativan) 0.5 mg Q12H PRN PO 07/26/17 13:00 UNV (Ativan Inj) 0.5 mg Q12H PRN IM 07/26/17 13:00 UNV (Tylenol) 650 mg Q4H PRN PO 07/26/17 13:00 UNV (Milk Of Magnesia Liq) 30 ml DAILY PRN PO 07/26/17 13:00 UNV (Mag-Al Plus Susp Liq) 30 ml Q6H PRN PO 07/26/17 13:00 UNV (Habitrol 21 Mg Patch.24 Hr) 1 patch DAILY T-DERMAL 07/26/17 13:00 UNV (risperDAL) 0.5 mg BID PO 07/26/17 21:00 UNV (Benadryl) 25 mg Q8HR PO 07/26/17 14:00 UNV Family Psych History No psychiatric family history Social History Patient was born and raised in [place], she lives with her mother in [place], she has 2 kids, one 7 and other 9 years old, they live with their father , employed, has a boyfriend, her highest level of education is some college Patient's Strengths (min. 2) Establish outpatient care, family support Physical Exam Mild bilateral tremor, psychomotor retardation Vital Signs Vital Signs Date Time Temp Pulse Resp B/P (MAP) Pulse Ox O2 Delivery O2 Flow Rate FiO2 07/26/17 12:36 98.3 54 16 112/68 (83) 99 Mental Status Examination Appearance: Appropriate Consciousness: Alert Orientation: x4 Motor Activity: Normal gait Speech: Unremarkable Language: Adequate Fund of Knowledge: Adequate Attention and Concentration: Adequate Memory: Unremarkable Mood: Sad Affect: Flat Thought Process & Associations: Intact Thought Content: Appropriate Hallucination Type: Auditory Delusion Type: Paranoid Suicidal Ideation: No Suicidal Plan: No Suicidal Intention: No Homicidal Ideation: No Homicidal Plan: No Homicidal Intention: No Insight: Fair Judgment: Impulsive Assessment & Plan Problem List: (1) Schizoaffective disorder, bipolar type ICD Codes: F25.0 - Schizoaffective disorder, bipolar type Assessment & Plan: On psychiatric evaluation today the patient presents with commanding type auditory visual hallucinations for the last week, exacerbated in severity, intensity and frequency in the last 3 days. Patient reports hearing voices usually telling her to kill herself, voices that come sometimes from inside her head, also from outside, female and male voices, episodic, they can also make derogatory comments toward her, and could be broadcasting type. She also reports increased paranoia around people, she believes that people might have the intention to harm her or kill her. She related that 3 days after she was discharged from [place] in June her brother she has been experiencing depression, lack of motivation, hopelessness and helplessness. I also note that the patient is prominently EPS symptoms, bilateral mild tremors, psychomotor retardation stiffness, that could be related with parkinsonism secondary to the use of highly anti-dopaminergic Depo medication, in this case Invega. At this moment the patient represents increased danger to self and others, she needs psychiatric hospitalization for stabilization. I will start a very low dose of Risperdal 1 mg twice a day for psychosis, with Benadryl 25 mg 3 times a day for EPS symptoms. Her next dose of Invega Sustenna is due in August 06, 2017. Brief supportive psychotherapy and psychoeducation provided. Consult psychiatry for second opinion, hospitalist to continue medical care of acute kidney injury. industrial relations worker intervention for collateral information, safe discharge planning, individual and group therapies. Assessment & Plan Estimated LOS: Scott Kathleen MD Jul 26, 2017 13:06
[2017-07-26] MEDS ORDERED: LAMO25TA PO (13:39)
[2017-07-26] MEDS ORDERED: RISP2TAB37 PO (13:40)
[2017-07-26] MEDS ORDERED: HYDR50TA94 PO (13:41)
[2017-07-26] MEDS: diphenhydrAMINE HCL 25 MG CAP PO SCH ×2 (14:12→20:27)
[2017-07-26] MEDS: NICOTINE 21 MG/24 HR PATCH T-DERMAL SCH (14:13)
[2017-07-26] MEDS: traMADol HCL 50 MG TAB PO PRN ×2 (14:13→21:57)
[2017-07-26] MEDS: SODIUM CHLOR 0.9% 1000 ML INJ 1,000 ML IV SCH ×2 (14:15→21:45)
--- NOTE | 2017-07-26 16:08 | RADRPT ---
EXAM DATE/TIME: 07/26/2017 15:10 [facility] COMPARISON: No previous studies available for comparison. INDICATIONS : Renal failure. MEDICAL HISTORY : Schizophrenia. Renal failure. SURGICAL HISTORY : None. ENCOUNTER: Initial ACUITY: 1 day PAIN SCORE: 0/10 LOCATION: Bilateral flank MEASUREMENTS: RIGHT KIDNEY: 11.9 x 4.7 x 5.7 cm LEFT KIDNEY: 12.2 x 6.7 x 5.8 cm FINDINGS: Ultrasound of the kidneys demonstrates increased echogenicity of the cortex compatible with medical r enal disease. No hydronephrosis or mass lesions are identified. The aorta and inferior cava are unrem arkable. The bladder demonstrates no abnormality. CONCLUSION: Echogenic kidneys bilaterally compatible with medical renal disease. Enrique Mills MD on July 26, 2017 at 16:05 Board Certified Radiologist. This report was verified electronically.
[2017-07-26] MEDS: ACETAMINOPHEN 325 MG TAB PO PRN (17:30)
[2017-07-26 18:36] VITALS: BP 118/68; PULSE 74; RESP 17; TEMP 100; O2SAT 95
[2017-07-26] MEDS: risperiDONE 0.5 MG TAB PO SCH (20:27)
[2017-07-27] MEDS: SODIUM CHLOR 0.9% 1000 ML INJ 1,000 ML IV SCH ×3 (05:19→20:45)
[2017-07-27] MEDS: diphenhydrAMINE HCL 25 MG CAP PO SCH (05:33)
[2017-07-27 06:00] VITALS: BP 114/75; PULSE 80; RESP 16; TEMP 98.7; O2SAT 94
[2017-07-27 08:37] LABS: BICARBONATE 23.4 MEQ/L (21.0-32.0); BLOOD UREA NITROGEN 17 MG/DL (7-18); CALCIUM 8.1 MG/DL (8.5-10.1); CHLORIDE 113 MEQ/L (98-107); CHOLESTEROL 125 MG/DL (120-200); CREATININE 2.87 MG/DL (0.50-1.00); GLOMERULAR FILTRATION RATE 19 ML/MIN (>89); GLUCOSE,RANDOM 93 MG/DL (74-106); SODIUM (NA) 142 MEQ/L (136-145)
[2017-07-27 08:39] LABS: CHOLESTEROL/ HDL RATIO 2.16 RATIO; HDL CHOLESTEROL 57.7 MG/DL (40.0-60.0); LDL CHOLESTEROL 42 MG/DL (0-99); TRIGLYCERIDES 125 MG/DL (42-150)
[2017-07-27] MEDS: risperiDONE 0.5 MG TAB PO SCH ×2 (08:43→20:45)
[2017-07-27] MEDS: NICOTINE 21 MG/24 HR PATCH T-DERMAL SCH (08:52)
[2017-07-27] MEDS: REMOVE OLD NICOTINE PATCH T-DERMAL SCH (09:00)
--- NOTE | 2017-07-27 10:15 | HHI.PYPN ---
Subjective Remarks Patient seen for follow, chart reviewed. Discussion nursing staff reported the patient had reported some constipation but denying any auditory hallucinations, SI or HI overnight. Patient was found lying in hospital bed B, cooperative. Patient states that she came into the hospital which began "hearing voices" which began shortly after her brother had recently approximately 2 weeks ago. Patient also reports having had nausea and vomiting along with headache and backache. Patient reports having had poor sleep recently as well as feeling distressed due to the command auditory hallucinations to harm herself along with feeling depressed and having suicide ideations with paranoid ideations. Patient states that she continues to have some nausea and feeling more anxious now. Patient reports continuing to feel depressed and down as patient's brother had recently. She denies any perceptual disturbances morning nor any SI or HI. Review of Systems Except as stated in HPI: all other systems reviewed are Neg Mental Status Examination Appearance: Appropriate Consciousness: Alert Orientation: x4 Motor Activity: Normal gait Speech: Unremarkable Language: Adequate Fund of Knowledge: Adequate Attention and Concentration: Adequate Memory: Unremarkable Mood: Sad, Anxious Affect: Anxious Thought Process & Associations: Intact Thought Content: Appropriate Hallucination Type: Auditory Delusion Type: Paranoid Suicidal Ideation: No Suicidal Plan: No Suicidal Intention: No Homicidal Ideation: No Homicidal Plan: No Homicidal Intention: No Insight: Fair Judgment: Impulsive Results Labs Labs reviewed Test 07/27/17 07:25 Blood Urea Nitrogen 17 MG/DL Creatinine 2.87 MG/DL Random Glucose 93 MG/DL Calcium Level 8.1 MG/DL Sodium Level 142 MEQ/L Potassium Level 5.1 MEQ/L Chloride Level 113 MEQ/L Carbon Dioxide Level 23.4 MEQ/L Anion Gap 6 MEQ/L Estimat Glomerular Filtration Rate 19 ML/MIN Triglycerides Level 125 MG/DL Cholesterol Level 125 MG/DL LDL Cholesterol 42 MG/DL HDL Cholesterol 57.7 MG/DL Cholesterol/HDL Ratio 2.16 RATIO Vitals/IOs Vital Signs Date Time Temp Pulse Resp B/P (MAP) Pulse Ox O2 Delivery O2 Flow Rate FiO2 07/27/17 06:00 98.7 80 16 114/75 (88) 94 Intake and Output 07/27/17 07/27/17 07/28/17 08:00 16:00 00:00 Intake Total 240 ml 240 ml Balance 240 ml 240 ml Assessment & Plan Problem List: (1) Schizoaffective disorder, bipolar type ICD Codes: F25.0 - Schizoaffective disorder, bipolar type Assessment & Plan Patient this time reporting feeling depressed due to recent passing of her brother, anxious and was recent auditory hallucinations or command type telling her to harm himself and with recent suicide ideations as well. We will add Lorazepam 1 mg every 6 hours as needed anxiety. Continue rest of medications. Patient's next Invega Sustenna BAXTER as per patient. Collateral information pending. Continue recommendations as her prior medical team. Discharge planning in progress Justification for Cont. Inpt. At risk of further decompensation at lower level of care Discharge Planning Back to her residence once psychiatrically stable. Julian Dunn MD Jul 27, 2017 10:15
--- NOTE | 2017-07-27 11:36 | PD.CONS ---
[facility] By [facility] Physician No Primary Care Physician Diagnoses: History of Present Illness History from patient, and review of medical records. Patient is admitted to the psychiatry service for feeling really weak/insomnia/ hearing voices. She has history of schizoaffective disorder diagnosed recently. Medical team was consulted for acute renal failure. Patient initially was admitted to medical service at [facility] for this. She received IV hydration for past 24 hours. However her renal function has not improved significantly despite this. Patient reports that she's been throwing up for the past 4 days or so. She also reports she has not eaten or drank much because of his severe depression. Denies any blood in her vomitus. Still has persistence nausea. Denies any abdominal pain. She however complains of pain in her bilateral flank. She has had imaging studies done while at [place] and this did not reveal any evidence of renal stent/obstructive uropathy/pyelonephritis. Her UA was negative as well. Patient denies any abdominal pain. Denies any diarrhea or black stool or red stool. She does however report of some feeling of food being stuck in her throat when she eats. She stated that the symptoms only started after she took paliperidone shots for psychiatry in the previous admission. About 3 weeks ago. Also reports of dizziness which started only about 3 weeks ago after this shot was started. Currently she is no longer and this medication. She is on Risperdal by mouth. On review of medical records, patient was also started on Lamictal, Macrobid in previous admissions. Her renal function was normal up until July 06, 2017. Patient reports that all her medications were in use since then. Prior to end of June, she was not on any medications. Review of Systems Except as stated in HPI: all other systems reviewed are Neg Past Family Social History Allergies: Coded Allergies: No Known Allergies (Unverified , 07/16/17) Past Medical History schizoaffective dx no other medical issues Past Surgical History none Family History mom- cancer- in lung ; afib, htn Social History smokes for past 20yrs off and on, about half a pack a day used to drink etoh socially once a weekend or so, but quit 4 yrs ago because she gets sick when she drinks no drug abuse now, but when she was young, experimented with lsd, marijuana, ecstasy, NO IV drug use Physical Exam Vital Signs Vital Signs Date Time Temp Pulse Resp B/P (MAP) Pulse Ox O2 Delivery O2 Flow Rate FiO2 07/27/17 06:00 98.7 80 16 114/75 (88) 94 07/26/17 18:36 100.0 74 17 118/68 (85) 95 07/26/17 12:36 98.3 54 16 112/68 (83) 99 Physical Exam GENERAL: This is a well-nourished, well-developed patient, in no apparent distress. SKIN: No rashes, ecchymoses or lesions. Tactile fever HEAD: Atraumatic. Normocephalic. No temporal or scalp tenderness. EYES: No scleral icterus. No injection or drainage. ENT: Nose without bleeding, purulent drainage or septal hematoma. Airway patent. NECK: Trachea midline. No JVD . Supple, nontender, no meningeal signs. CARDIOVASCULAR: Regular rate and rhythm without murmurs, gallops, or rubs. RESPIRATORY: Clear to auscultation. Breath sounds equal bilaterally. No wheezes , rales, or rhonchi. GASTROINTESTINAL: Abdomen soft, non-tender, nondistended. No guarding. MUSCULOSKELETAL: Extremities without clubbing, cyanosis, or edema. . No calf tenderness. NEUROLOGICAL: Awake and alert. Motor and sensory grossly within normal limits. Normal speech. Laboratory Laboratory Tests Test 07/27/17 07:25 Blood Urea Nitrogen 17 Creatinine 2.87 Random Glucose 93 Calcium Level 8.1 Sodium Level 142 Potassium Level 5.1 Chloride Level 113 Carbon Dioxide Level 23.4 Anion Gap 6 Estimat Glomerular Filtration Rate 19 Triglycerides Level 125 Cholesterol Level 125 LDL Cholesterol 42 HDL Cholesterol 57.7 Cholesterol/HDL Ratio 2.16 Result Diagram: 07/27/17 0725 Assessment and Plan Assessment and Plan Impression: renal failure low grade fever Plan: iv hydration doubt this is from dehydration new meds this month that she is on: risperidol po, paliperidone shots, macrobid 06/30-07/03, and lamcital possible med related- will research and discuss with psych nephro consult blood cx hepatitis and hiv screen . Patient is agreeable. cxr influenza screen as pt had sinus symptoms cbc today ua is negative dvt prophylaxis with ambulation Discussed Condition With patient, nursing staff Abiodun Mason MD Jul 27, 2017 11:36
[2017-07-27] MEDS ORDERED: ACETAMINOPHEN 325 MG TAB PO PRN (12:00)
[2017-07-27] MEDS: LORazepam 1 MG TAB PO PRN ×2 (12:13→20:46)
[2017-07-27] MEDS: DOCUSATE SODIUM 100 MG CAP PO SCH ×2 (12:13→17:35)
[2017-07-27] MEDS: traMADol HCL 50 MG TAB PO PRN ×2 (12:13→20:46)
--- NOTE | 2017-07-27 13:19 | RADRPT ---
EXAM DATE/TIME: 07/27/2017 12:54 [facility] COMPARISON: CHEST SINGLE AP, September 04, 2015, 15:04. INDICATIONS : Fever. MEDICAL HISTORY : Schizophrenia. Renal failure. SURGICAL HISTORY : None. ENCOUNTER: Initial ACUITY: 1 day PAIN SCORE: 0/10 LOCATION: Bilateral chest FINDINGS: Frontal and lateral views of the chest demonstrate multiple focal areas of parenchymal opacity, locat ed in the posterior costophrenic angles bilaterally and medially in the right lower lung. The remain darin of the lungs are clear the heart is normal in size. CONCLUSION: Multifocal subsegmental bibasilar infiltrates. Wayne Villalba MD on July 27, 2017 at 13:16 Board Certified Radiologist. This report was verified electronically.
[2017-07-27 13:33] LABS: BASOPHIL % 0.6 % (0.0-2.0); EOSINOPHIL # 0.1 TH/MM3 (0-0.4); EOSINOPHIL % 1.9 % (0.0-4.0); HEMATOCRIT 35.4 % (35.0-46.0); LYMPH % 13.5 % (9.0-44.0); LYMPHOCYTE # 0.9 TH/MM3 (1.0-4.8); MEAN CELL VOLUME 92.7 FL (80.0-100.0); MEAN CORPUSCULAR HEMOGLOBIN 31.4 PG (27.0-34.0); MEAN CORPUSCULAR HGB CONC 33.9 % (32.0-36.0); MEAN PLATELET VOLUME 6.9 FL (7.0-11.0); MONO % 8.6 % (0.0-8.0); MONOCYTE # 0.6 TH/MM3 (0-0.9); NEUT % 75.4 % (16.0-70.0); PLATELET COUNT 212 TH/MM3 (150-450); RED BLOOD COUNT 3.82 MIL/MM3 (4.00-5.30); RED CELL DISTRIBUTION WIDTH 13.2 % (11.6-17.2); WHITE BLOOD COUNT 6.6 TH/MM3 (4.0-11.0)
[2017-07-27] MEDS: ONDANSETRON HCL 4 MG/2 ML VIAL IV PUSH PRN ×2 (13:43→20:47)
[2017-07-27 16:53] LABS: HEMOGLOBIN A1C 5.3 % (4.3-6.0)
--- NOTE | 2017-07-27 17:08 | PD.CONS ---
[facility] Service Nephrology Consult Requested By Dr. Mason Reason for Consult RACHNA Primary Care Physician No Primary Care Physician History of Present Illness Patient is a 37 year old with a past medical history of schizoaffective dx. Nephrology is consulted for RACHNA with a creatinine of 2.89. Patient creatinine was normal 0.59 on 07/06/17. Renal US with echogenic kidneys bilaterally compatible with medical renal disease. Patient reports that she has frequent UTI with last one only 2 weeks ago. Complains of left flank discomfort. (Sandrita Causey) Review of Systems Respiratory: DENIES: Shortness of breath Cardiovascular: DENIES: Chest pain Gastrointestinal: COMPLAINS OF: Nausea, Vomiting Genitourinary: COMPLAINS OF: Urinary incontinence (Sandrita Causey) Past Family Social History Allergies: Coded Allergies: No Known Allergies (Unverified , 07/16/17) Past Medical History schizoaffective dx Active Ordered Medications Current Medications Medications (Trade) Dose Ordered Sig/Ewelina Route Start Time Stop Time Status Last Admin (Ativan) 1 mg Q6H PRN PO 07/26/17 13:00 07/27/17 12:13 (Ativan Inj) 1 mg Q6H PRN IM 07/26/17 13:00 (Tylenol) 650 mg Q4H PRN PO 07/26/17 13:00 07/26/17 17:30 (Milk Of Magnesia Liq) 30 ml DAILY PRN PO 07/26/17 13:00 (Mag-Al Plus Susp Liq) 30 ml Q6H PRN PO 07/26/17 13:00 07/27/17 12:13 (Habitrol 21 Mg Patch.24 Hr) 1 patch DAILY T-DERMAL 07/26/17 13:00 07/27/17 08:52 (risperDAL) 0.5 mg BID PO 07/26/17 21:00 07/27/17 08:43 Miscellaneous Information 1 DAILY T-DERMAL 07/27/17 09:00 Sodium Chloride 1,000 ml @ 125 mls/hr Q8H IV 07/26/17 13:45 07/27/17 13:42 (Ultram) 50 mg Q8H PRN PO 07/26/17 14:00 07/27/17 12:13 (Zofran Inj) 4 mg Q6HR PRN IV PUSH 07/27/17 11:30 07/27/17 13:43 (Colace) 100 mg TID PO 07/27/17 13:00 07/27/17 12:13 (Tylenol) 650 mg Q4H PRN PO 07/27/17 12:00 Family History mom- cancer- in lung ; afib, htn Social History smokes 1/2 pk of cigarettes per day denies any ETOH use Lives with mother (Sandrita Causey) Physical Exam Vital Signs Vital Signs Date Time Temp Pulse Resp B/P (MAP) Pulse Ox O2 Delivery O2 Flow Rate FiO2 07/27/17 06:00 98.7 80 16 114/75 (88) 94 07/26/17 18:36 100.0 74 17 118/68 (85) 95 Physical Exam GENERAL: Alert and cooperative SKIN: Warm and dry. HEAD: Normocephalic. EYES: No scleral icterus. No injection or drainage. NECK: Supple, trachea midline. No JVD or lymphadenopathy. CARDIOVASCULAR: Regular rate and rhythm without murmurs, gallops, or rubs. RESPIRATORY: Breath sounds equal bilaterally. No accessory muscle use. GASTROINTESTINAL: Abdomen soft, non-tender, nondistended. MUSCULOSKELETAL: No cyanosis, or edema. BACK: Nontender without obvious deformity. Left CVA tenderness. Laboratory Laboratory Tests Test 07/27/17 07:25 07/27/17 13:25 Blood Urea Nitrogen 17 Creatinine 2.87 Random Glucose 93 Calcium Level 8.1 Sodium Level 142 Potassium Level 5.1 Chloride Level 113 Carbon Dioxide Level 23.4 Anion Gap 6 Estimat Glomerular Filtration Rate 19 Triglycerides Level 125 Cholesterol Level 125 LDL Cholesterol 42 HDL Cholesterol 57.7 Cholesterol/HDL Ratio 2.16 White Blood Count 6.6 Red Blood Count 3.82 Hemoglobin 12.0 Hematocrit 35.4 Mean Corpuscular Volume 92.7 Mean Corpuscular Hemoglobin 31.4 Mean Corpuscular Hemoglobin Concent 33.9 Red Cell Distribution Width 13.2 Platelet Count 212 Mean Platelet Volume 6.9 Neutrophils (%) (Auto) 75.4 Lymphocytes (%) (Auto) 13.5 Monocytes (%) (Auto) 8.6 Eosinophils (%) (Auto) 1.9 Basophils (%) (Auto) 0.6 Neutrophils # (Auto) 5.0 Lymphocytes # (Auto) 0.9 Monocytes # (Auto) 0.6 Eosinophils # (Auto) 0.1 Basophils # (Auto) 0.0 CBC Comment DIFF FINAL Differential Comment Date/Time Source Procedure Growth Status 07/27/17 13:25 Blood Peripheral Aerobic Blood Culture Pending Received 07/27/17 13:25 Blood Peripheral Anaerobic Blood Culture Pending Received (Sandrita Causey) Result Diagram: 07/27/17 1325 07/27/17 0725 Imaging Last Impressions Chest X-Ray 07/27/17 0000 Signed Impressions: Service Date/Time: July 12:54 - CONCLUSION: Multifocal subsegmental bibasilar infiltrates. Wayne Villalba MD Renal Ultrasound 07/26/17 0000 Signed Impressions: Service Date/Time: Wednesday, July 26, 2017 15:10 - CONCLUSION: Echogenic kidneys bilaterally compatible with medical renal disease. Enrique Mills MD (Sandrita Causey) Assessment and Plan Problem List: (1) RACHNA (acute kidney injury) ICD Codes: N17.9 - Acute kidney failure, unspecified Plan: RACHNA with a creatinine of 2.89. Patient creatinine was normal 0.59 on 07/06. RACHNA from possible fluid depletion but also could be medication related. Renal US with echogenic kidneys bilaterally compatible with medical renal disease. Patient reports that she has frequent UTI with last one only 2 weeks ago. Complains of left flank discomfort. Plan: continue IVF's Maintain strict I+O Encourage fluids Avoid nephrotoxins Will monitor UOP and BMP UA C+S, urine sodium, urine osmolarity (2) Schizoaffective disorder, bipolar type ICD Codes: F25.0 - Schizoaffective disorder, bipolar type (Sandrita Causey) Problem List: (1) RACHNA (acute kidney injury) ICD Codes: N17.9 - Acute kidney failure, unspecified Plan: RACHNA with a creatinine of 2.89. Patient creatinine was normal 0.59 on 07/06. RACHNA from possible fluid depletion but also could be medication related. Renal US with echogenic kidneys bilaterally compatible with medical renal disease. Patient reports that she has frequent UTI with last one only 2 weeks ago. Complains of left flank discomfort. Plan: continue IVF's Maintain strict I+O Encourage fluids Avoid nephrotoxins Will monitor UOP and BMP UA C+S, urine sodium, urine osmolarity. Patient seen and examined, agree with above. Most likely has either ATN or pre renal. I will send serology , to complete the work up. (2) Schizoaffective disorder, bipolar type ICD Codes: F25.0 - Schizoaffective disorder, bipolar type (Dalton Roberts MD) Sandrita Causey Jul 27, 2017 17:08 Dalton Roberts MD Jul 27, 2017 20:53
[2017-07-27] MEDS: ACETAMINOPHEN 325 MG TAB PO PRN (18:03)
[2017-07-27] MEDS: MAGNESIUM HYDROXIDE SUSP 30 ML CUP PO PRN (18:14)
[2017-07-27 18:36] VITALS: BP 123/76; PULSE 69; RESP 16; TEMP 98.5; O2SAT 95
[2017-07-27 19:04] LABS: BACTERIA, URINE OCC /hpf; BILIRUBIN, URINE NEG (NEG); BLOOD, URINE NEG (NEG); GLUCOSE,URINE NEG (NEG); KETONE, URINE NEG (NEG); MUCUS URINE FEW /lpf (OCC); NITRITE,URINE NEG (NEG); SQUAMOUS EPITHELIAL CELL URINE 8 /hpf (0-5); URINE COLOR LIGHT-YELLOW (YELLW/STRAW); URINE LEUKOCYTE ESTERASE SMALL (NEG)
[2017-07-27 19:07] LABS: OSMOLALITY,URINE 187 MOSM/KG (300-1300)
[2017-07-27 19:09] LABS: SODIUM,RANDOM URINE 65 MEQ/L
[2017-07-28] MEDS: ACETAMINOPHEN 325 MG TAB PO PRN (02:37)
[2017-07-28] MEDS: ONDANSETRON HCL 4 MG/2 ML VIAL IV PUSH PRN ×3 (02:43→17:08)
[2017-07-28] MEDS: SODIUM CHLOR 0.9% 1000 ML INJ 1,000 ML IV SCH ×3 (03:23→21:45)
[2017-07-28 06:00] VITALS: BP 132/81; PULSE 62; RESP 17; TEMP 98; O2SAT 96
[2017-07-28] MEDS: risperiDONE 0.5 MG TAB PO SCH (09:41)
[2017-07-28] MEDS: DOCUSATE SODIUM 100 MG CAP PO SCH ×3 (09:41→18:04)
[2017-07-28] MEDS: NICOTINE 21 MG/24 HR PATCH T-DERMAL SCH (09:42)
[2017-07-28] MEDS: REMOVE OLD NICOTINE PATCH T-DERMAL SCH (09:43)
[2017-07-28] MEDS: LORazepam 1 MG TAB PO PRN ×2 (10:00→21:39)
[2017-07-28 10:22] LABS: PHOSPHORUS 4.4 MG/DL (2.5-4.9)
[2017-07-28] MEDS ORDERED: lamoTRIgine 25 MG TAB PO SCH (10:45)
--- NOTE | 2017-07-28 10:50 | HHI.PYPN ---
Subjective Remarks Patient seen for follow, chart reviewed. Discussion nursing staff reported patient had 1 episode of emesis along with the patient described as a migraine but was treated with Tylenol which resolved. Patient was found in hospital bed , cooperative today. Patient reported adages shout and felt better stating that she slept well continues to feel depressed but denies any suicide ideations at this time. Patient reports having sensation of auditory hallucinations which he last experienced 2 days ago but continues to have paranoid ideations at this time. Patient reports continues with mood to be "poor" and states that she was previously on antidepressant treatment over a year ago but had to stop due to not being able to his afford her medications. Patient reports having visited by her boyfriend which went well as well as spoke with mother over the phone. Review of Systems Except as stated in HPI: all other systems reviewed are Neg Mental Status Examination Appearance: Appropriate Consciousness: Alert Orientation: x4 Motor Activity: Normal gait Speech: Unremarkable Language: Adequate Fund of Knowledge: Adequate Attention and Concentration: Adequate Memory: Unremarkable Mood: Sad, Anxious Affect: Anxious Thought Process & Associations: Intact Thought Content: Appropriate Hallucination Type: Auditory (Denies today) Delusion Type: Paranoid Suicidal Ideation: Yes (Denies today) Suicidal Plan: No Suicidal Intention: No Homicidal Ideation: No Homicidal Plan: No Homicidal Intention: No Insight: Fair Judgment: Impulsive Results Labs Labs reviewed Test 07/27/17 13:25 07/27/17 18:35 07/28/17 08:45 White Blood Count 6.6 TH/MM3 Red Blood Count 3.82 MIL/MM3 Hemoglobin 12.0 GM/DL Hematocrit 35.4 % Mean Corpuscular Volume 92.7 FL Mean Corpuscular Hemoglobin 31.4 PG Mean Corpuscular Hemoglobin Concent 33.9 % Red Cell Distribution Width 13.2 % Platelet Count 212 TH/MM3 Mean Platelet Volume 6.9 FL Neutrophils (%) (Auto) 75.4 % Lymphocytes (%) (Auto) 13.5 % Monocytes (%) (Auto) 8.6 % Eosinophils (%) (Auto) 1.9 % Basophils (%) (Auto) 0.6 % Neutrophils # (Auto) 5.0 TH/MM3 Lymphocytes # (Auto) 0.9 TH/MM3 Monocytes # (Auto) 0.6 TH/MM3 Eosinophils # (Auto) 0.1 TH/MM3 Basophils # (Auto) 0.0 TH/MM3 CBC Comment DIFF FINAL Differential Comment Urine Color LIGHT-YELLOW Urine Turbidity HAZY Urine pH 5.0 Urine Specific [place] 1.004 Urine Protein NEG mg/dL Urine Glucose (UA) NEG mg/dL Urine Ketones NEG mg/dL Urine Occult Blood NEG Urine Nitrite NEG Urine Bilirubin NEG Urine Urobilinogen LESS THAN 2.0 MG/DL Urine Leukocyte Esterase SMALL Urine RBC 2 /hpf Urine WBC 4 /hpf Urine Squamous Epithelial Cells 8 /hpf Urine Bacteria OCC /hpf Urine Mucus FEW /lpf Microscopic Urinalysis Comment CULT NOT INDICATED Urine Osmolality 187 MOSM/KG Urine Random Sodium 65 MEQ/L Phosphorus Level 4.4 MG/DL Total Creatine Kinase 43 U/L Date/Time Source Procedure Growth Status 07/27/17 13:25 Blood Peripheral Aerobic Blood Culture Pending Received 07/27/17 13:25 Blood Peripheral Anaerobic Blood Culture Pending Received Vitals/IOs Vital Signs Date Time Temp Pulse Resp B/P (MAP) Pulse Ox O2 Delivery O2 Flow Rate FiO2 07/28/17 06:00 98.0 62 17 132/81 (98) 96 Intake and Output 07/28/17 07/28/17 07/29/17 08:00 16:00 00:00 Intake Total 480 ml 480 ml Output Total 1575 ml Balance -1095 ml 480 ml Assessment & Plan Problem List: (1) Schizoaffective disorder, bipolar type ICD Codes: F25.0 - Schizoaffective disorder, bipolar type Assessment & Plan Patient this time continues to endorse depressed mood along with paranoid ideations. We will defer from patient rstarting on Lamictal due to current renal function. We will also start patient on bupropion SR 150 mg p.o. daily for depression, increase Risperdal to 1 mg p.o. twice daily for psychosis and mood stabilization, continue rest of medications. Continue to monitor mood and behavior. Continue recommendations as per primary medical team. Discharge planning in progress. Justification for Cont. Inpt. At risk for further decompensation at lower level of care Discharge Planning Return back to her residence Julian Dunn MD Jul 28, 2017 10:50
[2017-07-28 11:39] LABS: HEPATITIS A AB IGM NEGATIVE (NEGATIVE); HEPATITIS B CORE AB IGM NEGATIVE (NEGATIVE); HEPATITIS B SURFACE ANTIGEN NEGATIVE (NEGATIVE); HEPATITIS C AB IgG NEGATIVE (NEGATIVE)
--- NOTE | 2017-07-28 12:27 | HHI.NPPN ---
Subjective Renal Failure: Acute History of Present Illness Patient is a 37 year old with a past medical history of schizoaffective dx. Nephrology is consulted for RACHNA with a creatinine of 2.89. Patient creatinine was normal 0.59 on 07/06/17. Renal US with echogenic kidneys bilaterally compatible with medical renal disease. Patient reports that she has frequent UTI with last one only 2 weeks ago. Complains of left flank discomfort. Additional Remarks Resting comfortably. IVF infusing and having good UOP. Feeling lethargic (Sandrita Causey) Review of Systems General Constitutional: Fatigue (Sandrita Causey) Respiratory Respiratory Remarks No SOB (Sandrita Causey) Cardiovascular Cardiac Remarks No CP (Sandrita Causey) Gastrointestinal GI Remarks No abdominal pain (Sandrita Causey) Genitourinary Remarks denies dysuria (Sandrita Causey) Objective Data Data 07/28/17 07/29/17 19:00 07:00 Intake Total 480 ml Balance 480 ml Intake Oral 480 ml Vital Signs Date Time Temp Pulse Resp B/P (MAP) Pulse Ox O2 Delivery O2 Flow Rate FiO2 07/28/17 06:00 98.0 62 17 132/81 (98) 96 07/28/17 06:00 98.0 62 17 132/81 (98) 96 07/27/17 18:36 98.5 69 16 123/76 (92) 95 (Sandrita Causey) -: 07/27/17 1325 07/27/17 0725 Microbiology 07/27/17 Aerobic Blood Culture - Preliminary, Resulted NO GROWTH IN 1 DAY 07/27/17 Anaerobic Blood Culture - Preliminary, Resulted NO GROWTH IN 1 DAY 07/27/17 Aerobic Blood Culture - Preliminary, Resulted NO GROWTH IN 1 DAY 07/27/17 Anaerobic Blood Culture - Preliminary, Resulted NO GROWTH IN 1 DAY Imaging Last Impressions Chest X-Ray 07/27/17 0000 Signed Impressions: Service Date/Time: July 12:54 - CONCLUSION: Multifocal subsegmental bibasilar infiltrates. Wayne Villalba MD Renal Ultrasound 07/26/17 0000 Signed Impressions: Service Date/Time: Wednesday, July 26, 2017 15:10 - CONCLUSION: Echogenic kidneys bilaterally compatible with medical renal disease. Enrique Mills MD (Sandrita Causey) Physical Exam General Appearance: No Acute Distress, Comfortable (Sandrita Causey. SLASHER TENDER HELPER) Eyes Eye Exam: Pupils Equal (ArielalerKath beene M. SLASHER TENDER HELPER) Throat Throat Exam: Oral Mucosa [place] & Moist (Sandrita Causey. SLASHER TENDER HELPER) Pulmonary Resp Exam: Breath Sounds Equal, No Distress (Sandrita Causey SLASHER TENDER HELPER) Cardiology CV Exam: Regular, Normal Sinus Rhythm (ArielalerSandrita bee. SLASHER TENDER HELPER) Gastrointestinal/Abdomen GI Exam: Soft, Non-Tender, Bowel Sounds Present (Sandrita Causey. SLASHER TENDER HELPER) Genitourinary Exam: Clear Urine Remarks left flank tenderness (Kath Causeyne M. SLASHER TENDER HELPER) Integumentary Skin Exam: Clear, Warm, Dry (Sandrita Causey. SLASHER TENDER HELPER) Extremeties Extremities Exam: No Edema (Sandrita Causey. SLASHER TENDER HELPER) Neurologic Neuro Exam: Alert, Awake (Sandrita Causey. SLASHER TENDER HELPER) Psychiatric Psych Exam: Appropriate Responses (Sandrita CauseyP) Assessment/Plan Problem List: (1) RACHNA (acute kidney injury) ICD Codes: N17.9 - Acute kidney failure, unspecified Plan: RACHNA patients creatinine was normal 0.59 on 07/06/17 RACHNA from Most likely has either ATN or pre renal. Renal US with echogenic kidneys bilaterally compatible with medical renal disease. Patient reports that she has frequent UTI with last one only 2 weeks ago. UA negative for protein does not appear to have UTI Plan: continue IVF's Maintain strict I+O Encourage fluids Avoid nephrotoxins Will monitor UOP and BMP Phos wnl BMP is pending (2) Schizoaffective disorder, bipolar type ICD Codes: F25.0 - Schizoaffective disorder, bipolar type (Sandrita Causey) Problem List: (1) RACHNA (acute kidney injury) ICD Codes: N17.9 - Acute kidney failure, unspecified Plan: RACHNA patients creatinine was normal 0.59 on 07/06/17 RACHNA from Most likely has either ATN or pre renal. Renal US with echogenic kidneys bilaterally compatible with medical renal disease. Patient reports that she has frequent UTI with last one only 2 weeks ago. UA negative for protein does not appear to have UTI Plan: continue IVF's Maintain strict I+O Encourage fluids Avoid nephrotoxins Will monitor UOP and BMP Phos wnl Patient seen and examined, agree with above. Creatinine is improving. Has no Proteinuria, serology is pending. (2) Schizoaffective disorder, bipolar type ICD Codes: F25.0 - Schizoaffective disorder, bipolar type (Dalton Roberts MD) Sandrita Causey Jul 28, 2017 12:27 Dalton Roberts MD Jul 28, 2017 22:45
[2017-07-28] MEDS: FLUoxetine HCL 20 MG CAP PO SCH (12:58)
[2017-07-28 14:38] LABS: BICARBONATE 26.6 MEQ/L (21.0-32.0); CALCIUM 8.4 MG/DL (8.5-10.1); CREATININE 1.96 MG/DL (0.50-1.00)
--- NOTE | 2017-07-28 14:47 | RADRPT ---
EXAM DATE/TIME: 07/28/2017 14:16 [facility] COMPARISON: No previous studies available for comparison. INDICATIONS : Evaluate for septic emboli, pneumonia RADIATION DOSE: 6.05 CTDIvol (mGy) MEDICAL HISTORY : Schizophrenia, Bipolar disorder, Renal failure SURGICAL HISTORY : None. ENCOUNTER: Initial ACUITY: 2 days PAIN SCALE: 3/10 LOCATION: Bilateral chest TECHNIQUE: Volumetric scanning of the chest was performed. Using automated exposure control and adjustment of t he mA and/or kV according to patient size, radiation dose was kept as low as reasonably achievable to obtain optimal diagnostic quality images. DICOM format image data is available electronically for r eview and comparison. Follow-up recommendations for detected pulmonary nodules are based at a minimum on nodule size and pa tient risk factors according to Fleischner Society Guidelines. FINDINGS: LUNGS: There is atelectasis adjacent to the bilateral pleural effusions and there is subsegmental areas of c onsolidation in the posterior lower lung. PLEURAE: Moderate-sized pleural effusion on the right side measuring 2.7 cm and small left pleural effusion me asuring 1.5 cm. MEDIASTINUM: The heart and great vessels demonstrate no acute abnormality. There is no mediastinal or hilar lymph adenopathy. AXILLAE: Within normal limits. No lymphadenopathy. MUSCULOSKELETAL: Within normal limits for patient age. . CONCLUSION: 1. Bilateral pleural effusions, moderate on the right and small left with associated bibasilar subseg mental areas of consolidation. 2. No evidence of mediastinal adenopathy. Wayne Villalba MD on July 28, 2017 at 14:33 Board Certified Radiologist. This report was verified electronically.
[2017-07-28] MEDS: cefTRIAXone INJ 1,000 MG in SODIUM CHLORIDE 0.9% INJ 100 ML IV SCH (14:51)
[2017-07-28] MEDS: AZITHROMYCIN INJ 500 MG in SODIUM CHLOR 0.9% 250 ML INJ 250 ML IV SCH (15:31)
--- NOTE | 2017-07-28 15:46 | HHI.PR ---
Subjective Remarks patient complains of constant nausea and dry heaves + epigastric discomfort denies any diarrhea, + flatus states complains of recent back pain and has been taking Motrin 3-4x a day for past 4 days requesting for pain meds Objective Vitals Vital Signs Date Time Temp Pulse Resp B/P (MAP) Pulse Ox O2 Delivery O2 Flow Rate FiO2 07/28/17 06:00 98.0 62 17 132/81 (98) 96 07/28/17 06:00 98.0 62 17 132/81 (98) 96 07/27/17 18:36 98.5 69 16 123/76 (92) 95 I/O 07/27/17 07/27/17 07/27/17 07/28/17 07/28/17 07/28/17 07:00 15:00 23:00 07:00 15:00 23:00 Intake Total 240 ml 900 ml 1260 ml 480 ml 480 ml Output Total 1575 ml Balance 240 ml 900 ml 1260 ml -1095 ml 480 ml Intake Oral 240 ml 900 ml 1260 ml 480 ml 480 ml Output Urine Total 1575 ml # Voids 3 4 Result Diagram: 07/27/17 1325 07/28/17 0845 Imaging Last Impressions Chest CT 07/28/17 0000 Signed Impressions: Service Date/Time: Friday, July 28, 2017 14:16 - CONCLUSION: 1. Bilateral pleural effusions, moderate on the right and small left with associated bibasilar subsegmental areas of consolidation. 2. No evidence of mediastinal adenopathy. Wayne Villalba MD Chest X-Ray 07/27/17 0000 Signed Impressions: Service Date/Time: July 12:54 - CONCLUSION: Multifocal subsegmental bibasilar infiltrates. Wayne Villalba MD Renal Ultrasound 07/26/17 0000 Signed Impressions: Service Date/Time: Wednesday, July 26, 2017 15:10 - CONCLUSION: Echogenic kidneys bilaterally compatible with medical renal disease. Enrique Mills MD Objective Remarks awake and alert, anxious anicteric neck supple, no nuchal rigidity no rales regular rhythm abdomen-soft, + epigastric tenderness + bowel sounds extremities trace pedal edema A/P Assessment and Plan 37 years old female RACHNA - pre renal- r/o NSAIds induced reports taking Motrin frequently for back pain last 4 days Continue IVF Renal service ff Nausea/vomting- r/o NSAIds induced gastritis/gastropathy check amylase lipase check abdominal film start PPI IV, prn zofran consider GI consult mutltifocal subsegmental pneumonia on CXR - rocephin/ azithromycin - given renal failure/ low grade fever/ history Incetive spirometry Back pain- low- denies any recent trauma or injury get back xrays Tramdaol prn Up and ambulating Sharif Singer MD Jul 28, 2017 15:46
--- NOTE | 2017-07-28 17:00 | ECHRPT ---
Indication: CONCLUSIONS The left ventricular systolic function is hyperdynamic with an estimated ejection fraction in the ra nge of 65- 70%. The inferior vena cava is dilated. BP: 132 / 81 HR: Rhythm: MEASUREMENTS (Male / Female) Normal Values Technical Quality:Good 2D ECHO LV Diastolic Diameter PLAX 4.6 cm 4.2 - 5.9 / 3.9 - 5.3 cm LV Systolic Diameter PLAX 3.2 cm IVS Diastolic Thickness 1.1 cm 0.6 - 1.0 / 0.6 - 0.9 cm LVPW Diastolic Thickness 1.2 cm 0.6 - 1.0 / 0.6 - 0.9 cm LV Relative Wall Thickness 0.5 RV Internal Dim ED PLAX 2.3 cm M-MODE Aortic Root Diameter MM 3.4 cm LA Systolic Diameter MM 3.4 cm LA Ao Ratio MM 1.0 AV Cusp Separation MM 1.9 cm FINDINGS LEFT VENTRICLE The left ventricular systolic function is hyperdynamic with an estimated ejection fraction in the ra nge of 65- 70%. Wall thickness is normal. Normal left ventricular size. RIGHT VENTRICLE The right ventricular size is normal. LEFT ATRIUM The left atrial size is normal. RIGHT ATRIUM The right atrial size is normal. ATRIAL SEPTUM Normal atrial septal thickness without atrial level shunting by limited color doppler interrogation. AORTA The aortic root and proximal ascending aorta are not well visualized. MITRAL VALVE No mitral valve regurgitation. AORTIC VALVE Trileaflet aortic valve. No aortic valve stenosis or regurgitation. TRICUSPID VALVE Structurally normal tricuspid valve. There is trace tricuspid valve regurgitation. PULMONARY VALVE Trivial pulmonary valve regurgitation. VESSELS The inferior vena cava is dilated. PERICARDIUM No pericardial effusion. Shaheed Parrish MD, FACC (Electronically Signed) Final Date:28 July 2017 17:00
[2017-07-28] MEDS: PANTOPRAZOLE SODIUM 40 MG VIAL IV PUSH SCH (17:09)
[2017-07-28 18:00] VITALS: BP 152/62; PULSE 45; RESP 15; TEMP 98.2; O2SAT 93
[2017-07-28] MEDS: MAGNESIUM HYDROXIDE SUSP 30 ML CUP PO PRN (18:04)
[2017-07-28] MEDS: risperiDONE 1 MG TAB PO SCH (21:34)
[2017-07-28] MEDS: traMADol HCL 50 MG TAB PO PRN (21:39)
--- NOTE | 2017-07-28 22:00 | RADRPT ---
EXAM DATE/TIME: 07/28/2017 21:06 [facility] COMPARISON: No previous studies available for comparison. INDICATIONS : Abdominal pain in a patient that is known for renal failure. MEDICAL HISTORY : Schizophrenia, Bipolar disorder, Renal failure SURGICAL HISTORY : None. ENCOUNTER: Initial ACUITY: 4 - 6 days PAIN SCORE: 5/10 LOCATION: Bilateral abdomen FINDINGS: Supine and upright views of the abdomen were performed. Moderate residual stool in the ascending and transverse colon. No dilated loops of small bowel. No air fluid levels are seen. No abnormal masses, calcifications, or organomegaly is seen. The visualized lower lungs are clear. No evidence of free intraperitoneal gas. The osseous structures are unremarkable. Mild airspace disease and trace pleur al effusions at the lung bases bilaterally. CONCLUSION: 1. Moderate residual stool in the proximal colon which may reflect some degree of constipation. 2. Otherwise, nonobstructive bowel gas pattern. 3. Mild bibasilar airspace disease and trace pleural effusions. Daniel Gutierrez MD on July 28, 2017 at 21:58 Board Certified Radiologist. This report was verified electronically.
--- NOTE | 2017-07-28 22:01 | RADRPT ---
EXAM DATE/TIME: 07/28/2017 21:09 [facility] COMPARISON: No previous studies available for comparison. INDICATIONS : Back pain with no history of trauma. MEDICAL HISTORY : Schizophrenia, Bipolar disorder, Renal failure SURGICAL HISTORY : None. ENCOUNTER: Initial ACUITY: 4 - 6 days PAIN SCORE: 7/10 LOCATION: Bilateral low back FINDINGS: There are five non-rib bearing vertebral bodies. The vertebral bodies are in normal alignment withou t evidence of subluxation or scoliosis. The disc spaces are maintained. The posterior elements are intact without evidence of spondylolysis. The pedicles are intact. Bony mineralization is normal. No fracture is identified. CONCLUSION: 1. Unremarkable radiographs of the lumbar spine. Daniel Gutierrez MD on July 28, 2017 at 21:59 Board Certified Radiologist. This report was verified electronically.
--- NOTE | 2017-07-28 22:02 | RADRPT ---
EXAM DATE/TIME: 07/28/2017 21:10 [facility] COMPARISON: No previous studies available for comparison. INDICATIONS : Back pain with no history of fall. MEDICAL HISTORY : Schizophrenia, Bipolar disorder, Renal failure SURGICAL HISTORY : None. ENCOUNTER: Initial ACUITY: 4 - 6 days PAIN SCORE: 5/10 LOCATION: upper back FINDINGS: Slight levoscoliosis of the upper thoracic spine. Sagittal alignment is maintained. Vertebral body he ight is maintained. No evidence of fracture or subluxation. Pedicles are intact at all levels. The paravertebral reflections are not thickened. CONCLUSION: 1. Slight levoscoliosis of the upper thoracic spine. 2. Otherwise, unremarkable radiographs of the thoracic spine. Daniel Gutierrez MD on July 28, 2017 at 22:00 Board Certified Radiologist. This report was verified electronically.
[2017-07-29] MEDS: cefTRIAXone INJ 1,000 MG in SODIUM CHLORIDE 0.9% INJ 100 ML IV SCH ×2 (00:50→12:06)
[2017-07-29] MEDS: SODIUM CHLOR 0.9% 1000 ML INJ 1,000 ML IV SCH ×3 (05:45→17:25)
[2017-07-29 06:30] VITALS: BP 172/90; PULSE 87; RESP 17; TEMP 97.7; O2SAT 97
[2017-07-29 06:31] VITALS: BP 110/75; PULSE 50; RESP 17; TEMP 99.1; O2SAT 96
[2017-07-29 07:57] LABS: ALBUMIN 2.5 GM/DL (3.4-5.0); ALT (GPT) 22 U/L (10-53); AST (GOT) 11 U/L (15-37); BICARBONATE 29.1 MEQ/L (21.0-32.0); BLOOD UREA NITROGEN 11 MG/DL (7-18); CALCIUM 8.1 MG/DL (8.5-10.1); CHLORIDE 108 MEQ/L (98-107); CREATININE 1.59 MG/DL (0.50-1.00); GLOMERULAR FILTRATION RATE 37 ML/MIN (>89); GLUCOSE,RANDOM 86 MG/DL (74-106); SODIUM (NA) 143 MEQ/L (136-145)
[2017-07-29 07:59] LABS: ALKALINE PHOSPHATASE 40 U/L (45-117); TOTAL BILIRUBIN ADULT 0.3 MG/DL (0.2-1.0); TOTAL PROTEIN 5.6 GM/DL (6.4-8.2)
[2017-07-29] MEDS: FLUoxetine HCL 20 MG CAP PO SCH (08:30)
[2017-07-29] MEDS: DOCUSATE SODIUM 100 MG CAP PO SCH ×3 (08:30→16:41)
[2017-07-29] MEDS: risperiDONE 1 MG TAB PO SCH ×2 (08:30→20:58)
[2017-07-29] MEDS: REMOVE OLD NICOTINE PATCH T-DERMAL SCH (08:30)
[2017-07-29] MEDS: NICOTINE 21 MG/24 HR PATCH T-DERMAL SCH (08:30)
[2017-07-29] MEDS: LORazepam 1 MG TAB PO PRN (10:42)
--- NOTE | 2017-07-29 10:47 | HHI.PR ---
Subjective Remarks Follow-up for multiple medical conditions listed in assessment and plan When I asked patient about her abdominal pain she stated that she never complained about abdominal pain. She denies any nausea or vomiting today. She is asking why she cannot eat anything. Patient stated that she complained about back pain. Otherwise she denies any shortness of breathing or cough. Good urine output. Objective Vitals Vital Signs Date Time Temp Pulse Resp B/P (MAP) Pulse Ox O2 Delivery O2 Flow Rate FiO2 07/29/17 06:31 99.1 50 17 110/75 (87) 96 07/28/17 23:39 20 07/28/17 18:00 98.2 45 15 152/62 (92) 93 I/O 07/28/17 07/28/17 07/28/17 07/29/17 07/29/17 07/29/17 06:59 14:59 22:59 06:59 14:59 22:59 Intake Total 480 ml 480 ml 1440 ml 2260 ml Output Total 1575 ml 5600 ml 1000 ml 1600 ml Balance -1095 ml 480 ml -4160 ml 1260 ml -1600 ml Intake Oral 480 ml 480 ml 1440 ml 480 ml IV Total 1780 ml Output Urine Total 1575 ml 5600 ml 1000 ml 1600 ml Result Diagram: 07/27/17 1325 07/29/17 0638 Imaging Last Impressions Thoracic Spine X-Ray 07/28/17 0000 Signed Impressions: Service Date/Time: Friday, July 28, 2017 21:10 - CONCLUSION: 1. Slight levoscoliosis of the upper thoracic spine. 2. Otherwise, unremarkable radiographs of the thoracic spine. Daniel Gutierrez MD Lumbar Spine X-Ray 07/28/17 0000 Signed Impressions: Service Date/Time: Friday, July 28, 2017 21:09 - CONCLUSION: 1. Unremarkable radiographs of the lumbar spine. Daniel Gutierrez MD Chest CT 07/28/17 0000 Signed Impressions: Service Date/Time: Friday, July 28, 2017 14:16 - CONCLUSION: 1. Bilateral pleural effusions, moderate on the right and small left with associated bibasilar subsegmental areas of consolidation. 2. No evidence of mediastinal adenopathy. Wayne Villalba MD Abdomen X-Ray 07/28/17 0000 Signed Impressions: Service Date/Time: Friday, July 28, 2017 21:06 - CONCLUSION: 1. Moderate residual stool in the proximal colon which may reflect some degree of constipation. 2. Otherwise, nonobstructive bowel gas pattern. 3. Mild bibasilar airspace disease and trace pleural effusions. Daniel Gutierrez MD Chest X-Ray 07/27/17 0000 Signed Impressions: Service Date/Time: July 12:54 - CONCLUSION: Multifocal subsegmental bibasilar infiltrates. Wayne Villalba MD Renal Ultrasound 07/26/17 0000 Signed Impressions: Service Date/Time: Wednesday, July 26, 2017 15:10 - CONCLUSION: Echogenic kidneys bilaterally compatible with medical renal disease. Enrique Mills MD Objective Remarks GENERAL: in NAD CARDIOVASCULAR: Regular rate and rhythm without murmurs, gallops, or rubs. RESPIRATORY: Breath sounds equal bilaterally. No accessory muscle use. GASTROINTESTINAL: Abdomen soft,mild TTP in the epigastric area, nondistended. MUSCULOSKELETAL: Patient initially saw us walking in her room. Medications and IVs Current Medications Lorazepam (Ativan) 1 mg Q6H PRN PO MODERATE TO SEVERE ANXIETY Last administered on 07/29/17at 10:42; Start 07/26/17 at 13:00 Lorazepam (Ativan Inj) 1 mg Q6H PRN IM MODERATE TO SEVERE ANXIETY; Start at 13:00 Lorazepam (Ativan) 0.5 mg Q12H PRN PO MODERATE TO SEVERE ANXIETY; Start at 13:00; Status Cancel Lorazepam (Ativan Inj) 0.5 mg Q12H PRN IM MODERATE TO SEVERE ANXIETY; Start at 13:00; Status Cancel Acetaminophen (Tylenol) 650 mg Q4H PRN PO Pain 1-5 or Temp >101F Last administered on 07/28/17at 02:37; Start 07/26/17 at 13:00 Magnesium Hydroxide (Milk Of Magnesia Liq) 30 ml DAILY PRN PO CONSTIPATION Last administered on 07/28/17at 18:04; Start 07/26/17 at 13:00 Al Hydrox/Mg Hydrox/Simethicone (Mag-Al Plus Susp Liq) 30 ml Q6H PRN PO DYSPEPSIA Last administered on 07/27/17 12:13; Start 07/26/17 at 13:00 Nicotine (Habitrol 21 Mg Patch.24 Hr) 1 patch DAILY T-DERMAL Last administered on 07/29/17 08:30; Start 07/26/17 at 13:00 Risperidone (risperDAL) 0.5 mg BID PO Last administered on 07/28/17 09:41; Start 07/26/17 at 21:00; Stop 07/28/17 at 10:45; Status DC Diphenhydramine HCl (Benadryl) 25 mg Q8HR PO Last administered on 07/27/17 05: 33; Start 07/26/17 at 14:00; Stop 07/27/17 at 10:12; Status DC Miscellaneous Information 1 DAILY T-DERMAL Last administered on 07/29/17 08:30 ; Start 07/27/17 at 09:00 Sodium Chloride 1,000 ml @ 125 mls/hr Q8H IV Last administered on 07/29/17 08 :35; Start 07/26/17 at 13:45 Tramadol HCl (Ultram) 50 mg Q8H PRN PO pain >5 Last administered on 07/28/17 21:39; Start 07/26/17 at 14:00 Ondansetron HCl (Zofran Inj) 4 mg Q6HR PRN IV PUSH nausea Last administered on 07/28/17 17:08; Start 07/27/17 at 11:30 Docusate Sodium (Colace) 100 mg TID PO Last administered on 07/29/17 08:30; Start 07/27/17 at 13:00 Acetaminophen (Tylenol) 650 mg Q4H PRN PO fever >101; Start 07/27/17 at 12:00 Lamotrigine (LaMICtal) 25 mg BID PO ; Start 07/28/17 at 10:45; Stop 07/28/17 at 10:49; Status DC Risperidone (risperDAL) 1 mg BID PO Last administered on 07/29/17 08:30; Start 07/28/17 at 21:00 Fluoxetine HCl (PROzac) 20 mg DAILY PO Last administered on 07/29/17 08:30; Start 07/28/17 at 12:00 Ceftriaxone Sodium 1000 mg/ Sodium Chloride 100 ml @ 200 mls/hr Q12H IV Last administered on 07/29/17at 00:50; Start 07/28/17 at 13:00 Azithromycin 500 mg/Sodium Chloride 250 ml @ 250 mls/hr Q24H IV Last administered on 07/28/17at 15:31; Start 07/28/17 at 13:00 Pantoprazole Sodium (Protonix Inj) 40 mg Q24H IV PUSH Last administered on 07/28at 17:09; Start 07/28/17 at 17:00 A/P Assessment and Plan 37 years old female RACHNA - pre renal- reports taking Motrin frequently for back pain last 4 days Improving on IV fluids. Will need to be cautious since patient does have bilateral pleural effusion. Renal service ff Gastritis On PPI. At the moment she states she is asymptomatic. KUBs negative for any obstruction. Will start a clear liquid diet and advance as tolerated. mutltifocal subsegmental pneumonia/bilateral pleural effusion - rocephin/ azithromycin - given renal failure/ low grade fever/ history -Incentive spirometry Back pain- low- denies any recent trauma or injury X-ray shows mild scoliosis. Encourage ambulation. Tramdaol Jaleesa Allen MD Jul 29, 2017 10:47
[2017-07-29] MEDS: AZITHROMYCIN INJ 500 MG in SODIUM CHLOR 0.9% 250 ML INJ 250 ML IV SCH (12:41)
[2017-07-29] MEDS: ONDANSETRON HCL 4 MG/2 ML VIAL IV PUSH PRN (13:33)
--- NOTE | 2017-07-29 16:27 | HHI.PYPN ---
Subjective Remarks Patient seen and examined with nurse in weekend coverage for Dr. Dunn. Chart reviewed. Case discussed with nursing staff. On my examination today, the patient complains of some dizziness, particularly upon standing. We discuss safety standing, and I instructed the nurse to obtain orthostatic vital signs. I have also instituted fall precautions. Presently the patient denies any SI, HI or AH. She does say that she was seeing some objects on the [place] that were not there. No other side effects from medications or physical complaints. Review of Systems ROS Limitations: Poor Historian Except as stated in HPI: all other systems reviewed are Neg Mental Status Examination Appearance: Appropriate Consciousness: Alert Orientation: x4 Motor Activity: Normal gait Speech: Unremarkable Language: Adequate Fund of Knowledge: Adequate Attention and Concentration: Adequate Memory: Unremarkable Mood: Anxious Affect: Anxious Thought Process & Associations: Intact Thought Content: Appropriate Hallucination Type: Visual Delusion Type: None Suicidal Ideation: No Suicidal Plan: No Suicidal Intention: No Homicidal Ideation: No Homicidal Plan: No Homicidal Intention: No Insight: Fair Judgment: Impulsive Results Labs Test 07/29/17 06:38 Blood Urea Nitrogen 11 MG/DL Creatinine 1.59 MG/DL Random Glucose 86 MG/DL Total Protein 5.6 GM/DL Albumin 2.5 GM/DL Calcium Level 8.1 MG/DL Alkaline Phosphatase 40 U/L Aspartate Amino Transf (AST/SGOT) 11 U/L Alanine Aminotransferase (ALT/SGPT) 22 U/L Total Bilirubin 0.3 MG/DL Sodium Level 143 MEQ/L Potassium Level 4.3 MEQ/L Chloride Level 108 MEQ/L Carbon Dioxide Level 29.1 MEQ/L Anion Gap 6 MEQ/L Estimat Glomerular Filtration Rate 37 ML/MIN Date/Time Source Procedure Growth Status 07/27/17 13:25 Blood Peripheral Aerobic Blood Culture - Preliminary NO GROWTH IN 2 DAYS Resulted 07/27/17 13:25 Blood Peripheral Anaerobic Blood Culture - Preliminary NO GROWTH IN 2 DAYS Resulted Labs reviewed. Vitals/IOs Vital Signs Date Time Temp Pulse Resp B/P (MAP) Pulse Ox O2 Delivery O2 Flow Rate FiO2 07/29/17 06:31 99.1 50 17 110/75 (87) 96 Intake and Output 07/29/17 07/29/17 07/30/17 08:00 16:00 00:00 Intake Total 2260 ml 100 ml Output Total 1000 ml 2400 ml 600 ml Balance 1260 ml -2300 ml -600 ml Assessment & Plan Problem List: (1) Schizoaffective disorder, bipolar type ICD Codes: F25.0 - Schizoaffective disorder, bipolar type Assessment & Plan Check orthostatics and institute fall precautions. Continue current psychotropics as ordered for now. Continue other medications and care as ordered. Justification for Cont. Inpt. Risk for decompensation and less restrictive environment. Discharge Planning Per Dr. Dunn. Enrique Maya MD Jul 29, 2017 16:27
[2017-07-29] MEDS: PANTOPRAZOLE SODIUM 40 MG VIAL IV PUSH SCH (16:41)
[2017-07-29 17:00] VITALS: BP_SYST 120; BP_SYST 123; BP_DIAS 76; BP_DIAS 77; BP_DIAS 86; PULSE 50; RESP 17; TEMP 98.7; O2SAT 95
--- NOTE | 2017-07-29 20:19 | HHI.NPPN ---
Subjective Renal Failure: Acute History of Present Illness Patient is a 37 year old with a past medical history of schizoaffective dx. Nephrology is consulted for RACHNA with a creatinine of 2.89. Patient creatinine was normal 0.59 on 07/06/17. Renal US with echogenic kidneys bilaterally compatible with medical renal disease. Patient reports that she has frequent UTI with last one only 2 weeks ago. Complains of left flank discomfort. Additional Remarks No acute complaints Review of Systems General Constitutional: Fatigue Respiratory Respiratory Remarks No SOB Cardiovascular Cardiac Remarks No CP Gastrointestinal GI Remarks No abdominal pain Genitourinary Remarks denies dysuria Objective Data Data 07/29/17 07/30/17 19:00 07:00 Intake Total 700 ml Output Total 3000 ml Balance -2300 ml Intake Oral 600 ml IV Total 100 ml Output Urine Total 3000 ml Vital Signs Date Time Temp Pulse Resp B/P (MAP) Pulse Ox O2 Delivery O2 Flow Rate FiO2 07/29/17 17:00 98.7 50 17 123/77 (92) 95 120/86 (97) 120/76 (91) 07/29/17 06:31 99.1 50 17 110/75 (87) 96 07/28/17 23:39 20 -: 07/27/17 1325 07/29/17 0638 Physical Exam General Appearance: No Acute Distress, Comfortable Eyes Eye Exam: Pupils Equal Throat Throat Exam: Oral Mucosa [place] & Moist Pulmonary Resp Exam: Breath Sounds Equal, No Distress Cardiology CV Exam: Regular, Normal Sinus Rhythm Gastrointestinal/Abdomen GI Exam: Soft, Non-Tender, Bowel Sounds Present Genitourinary Exam: Clear Urine Integumentary Skin Exam: Clear, Warm, Dry Extremeties Extremities Exam: No Edema Neurologic Neuro Exam: Alert, Awake Psychiatric Psych Exam: Appropriate Responses Assessment/Plan Problem List: (1) RACHNA (acute kidney injury) ICD Codes: N17.9 - Acute kidney failure, unspecified Plan: RACHNA patients creatinine was normal 0.59 on 07/06/17 Most likely with pre-renal RACHNA Renal US with echogenic kidneys bilaterally compatible with medical renal disease. Does use NSAIDs Patient reports that she has frequent UTI with last one only 2 weeks ago. UA negative for protein does not appear to have UTI Plan: Creatinine improved to 1.59 now continue IVF's with NS at 125cc/hour Maintain strict I+O Encourage fluids Avoid nephrotoxins Has no Proteinuria, serology is pending. (2) Schizoaffective disorder, bipolar type ICD Codes: F25.0 - Schizoaffective disorder, bipolar type Roland Ponce MD Jul 29, 2017 20:19
[2017-07-29] MEDS: ACETAMINOPHEN 325 MG TAB PO PRN (22:10)
[2017-07-30] MEDS: cefTRIAXone INJ 1,000 MG in SODIUM CHLORIDE 0.9% INJ 100 ML IV SCH ×2 (01:00→12:18)
[2017-07-30] MEDS: SODIUM CHLOR 0.9% 1000 ML INJ 1,000 ML IV SCH ×3 (05:40→21:19)
[2017-07-30 06:00] VITALS: BP 117/61; PULSE 55; RESP 17; TEMP 98; O2SAT 93
--- NOTE | 2017-07-30 08:24 | HHI.PR ---
Subjective Remarks The patient.. Is better today. She would like to try regular diet today. No abdominal pain. Did not have a bowel movement constipation. Last bowel movement was 5 days ago nonbloody and normal color. She is not coughing. No fever or chills. Objective Vitals Vital Signs Date Time Temp Pulse Resp B/P (MAP) Pulse Ox O2 Delivery O2 Flow Rate FiO2 07/30/17 06:00 98.0 55 17 117/61 (79) 93 07/29/17 23:10 20 07/29/17 17:00 98.7 50 17 123/77 (92) 95 120/86 (97) 120/76 (91) I/O 07/29/17 07/29/17 07/29/17 07/30/17 07/30/17 07/30/17 07:00 15:00 23:00 07:00 15:00 23:00 Intake Total 2260 ml 100 ml 1680 ml Output Total 1000 ml 2400 ml 2600 ml 700 ml Balance 1260 ml -2300 ml -920 ml -700 ml Intake Oral 480 ml 1680 ml IV Total 1780 ml 100 ml Output Urine Total 1000 ml 2400 ml 2600 ml 700 ml Result Diagram: 07/27/17 1325 07/29/17 0638 Imaging Last Impressions Thoracic Spine X-Ray 07/28/17 0000 Signed Impressions: Service Date/Time: Friday, July 28, 2017 21:10 - CONCLUSION: 1. Slight levoscoliosis of the upper thoracic spine. 2. Otherwise, unremarkable radiographs of the thoracic spine. Daniel Gutierrez MD Lumbar Spine X-Ray 07/28/17 0000 Signed Impressions: Service Date/Time: Friday, July 28, 2017 21:09 - CONCLUSION: 1. Unremarkable radiographs of the lumbar spine. Daniel Gutierrez MD Chest CT 07/28/17 0000 Signed Impressions: Service Date/Time: Friday, July 28, 2017 14:16 - CONCLUSION: 1. Bilateral pleural effusions, moderate on the right and small left with associated bibasilar subsegmental areas of consolidation. 2. No evidence of mediastinal adenopathy. Wayne Villalba MD Abdomen X-Ray 07/28/17 0000 Signed Impressions: Service Date/Time: Friday, July 28, 2017 21:06 - CONCLUSION: 1. Moderate residual stool in the proximal colon which may reflect some degree of constipation. 2. Otherwise, nonobstructive bowel gas pattern. 3. Mild bibasilar airspace disease and trace pleural effusions. Daniel Gutierrez MD Chest X-Ray 07/27/17 0000 Signed Impressions: Service Date/Time: July 12:54 - CONCLUSION: Multifocal subsegmental bibasilar infiltrates. Wayne Villalba MD Renal Ultrasound 07/26/17 0000 Signed Impressions: Service Date/Time: Wednesday, July 26, 2017 15:10 - CONCLUSION: Echogenic kidneys bilaterally compatible with medical renal disease. Enrique Mills MD Objective Remarks GENERAL: Young female, appears in NAD CARDIOVASCULAR: Regular rate and rhythm without murmurs, gallops, or rubs. RESPIRATORY: Breath sounds equal bilaterally. No accessory muscle use. GASTROINTESTINAL: Abdomen is soft, bowel sounds present by 4 quadrants, nontender to palpation. No rebound no guarding. SKELETAL: Patient initially saw us walking in her room. A/P Assessment and Plan 37 years old female RACHNA - pre renal- reports taking Motrin frequently for back pain last 4 days Improving on IV fluids. Will need to be cautious since patient does have bilateral pleural effusion. Renal service ff Gastritis On PPI. At the moment she states she is asymptomatic. KUBs negative for any obstruction. Advance diet as tolerated. Multifocal subsegmental pneumonia/bilateral pleural effusion - rocephin/ azithromycin - given renal failure/ low grade fever/ history -Incentive spirometry Back pain- low- denies any recent trauma or injury X-ray shows mild scoliosis. Encourage ambulation. Tramdaol prn Discussed with the patient, nurse Kassi Laureano MD Jul 30, 2017 08:24
[2017-07-30] MEDS: risperiDONE 1 MG TAB PO SCH ×2 (08:57→21:18)
[2017-07-30] MEDS: FLUoxetine HCL 20 MG CAP PO SCH (08:57)
[2017-07-30] MEDS: DOCUSATE SODIUM 100 MG CAP PO SCH ×3 (08:57→18:23)
[2017-07-30] MEDS: NICOTINE 21 MG/24 HR PATCH T-DERMAL SCH (08:57)
[2017-07-30] MEDS: traMADol HCL 50 MG TAB PO PRN ×2 (08:57→16:29)
[2017-07-30] MEDS: REMOVE OLD NICOTINE PATCH T-DERMAL SCH (08:58)
[2017-07-30 10:01] LABS: AUTOMATED NEUTROPHIL # 4.4 TH/MM3 (1.8-7.7); BASOPHIL # 0.1 TH/MM3 (0-0.2); BASOPHIL % 0.9 % (0.0-2.0); EOSINOPHIL # 0.3 TH/MM3 (0-0.4); EOSINOPHIL % 4.3 % (0.0-4.0); HEMATOCRIT 33.5 % (35.0-46.0); HEMOGLOBIN 11.4 GM/DL (11.6-15.3); LYMPH % 12.8 % (9.0-44.0); LYMPHOCYTE # 0.7 TH/MM3 (1.0-4.8); MEAN CELL VOLUME 91.6 FL (80.0-100.0); MEAN CORPUSCULAR HEMOGLOBIN 31.2 PG (27.0-34.0); MEAN CORPUSCULAR HGB CONC 34.1 % (32.0-36.0); MEAN PLATELET VOLUME 7.5 FL (7.0-11.0); MONO % 6.7 % (0.0-8.0); MONOCYTE # 0.4 TH/MM3 (0-0.9); NEUT % 75.3 % (16.0-70.0); PLATELET COUNT 218 TH/MM3 (150-450); RED BLOOD COUNT 3.66 MIL/MM3 (4.00-5.30); RED CELL DISTRIBUTION WIDTH 12.8 % (11.6-17.2); WHITE BLOOD COUNT 5.8 TH/MM3 (4.0-11.0)
[2017-07-30] MEDS: LORazepam 1 MG TAB PO PRN ×2 (10:20→18:23)
[2017-07-30 10:37] LABS: AST (GOT) 15 U/L (15-37); BICARBONATE 31.4 MEQ/L (21.0-32.0); BLOOD UREA NITROGEN 8 MG/DL (7-18); CALCIUM 8.8 MG/DL (8.5-10.1); CHLORIDE 106 MEQ/L (98-107); CREATININE 1.41 MG/DL (0.50-1.00); GLOMERULAR FILTRATION RATE 42 ML/MIN (>89); GLUCOSE,RANDOM 114 MG/DL (74-106); SODIUM (NA) 142 MEQ/L (136-145)
[2017-07-30 10:38] LABS: ALT (GPT) 23 U/L (10-53)
[2017-07-30 10:40] LABS: ALKALINE PHOSPHATASE 50 U/L (45-117); TOTAL BILIRUBIN ADULT 0.3 MG/DL (0.2-1.0); TOTAL PROTEIN 6.4 GM/DL (6.4-8.2)
[2017-07-30] MEDS: AZITHROMYCIN INJ 500 MG in SODIUM CHLOR 0.9% 250 ML INJ 250 ML IV SCH (13:00)
[2017-07-30] MEDS: ONDANSETRON HCL 4 MG/2 ML VIAL IV PUSH PRN (14:07)
--- NOTE | 2017-07-30 16:18 | HHI.PYPN ---
Subjective Remarks Patient seen and examined with nursing coverage for Dr. Dunn. Chart reviewed. Patient not orthostatic by blood pressure. Orthostatic heart rates not obtained. Case discussed with nursing staff. On my examination today, the patient reports that dizziness is decreased. She denies any SI, HI or AVH. Affect seems brighter today. No side effects from medications. No physical complaints. Review of Systems Except as stated in HPI: all other systems reviewed are Neg Mental Status Examination Appearance: Appropriate Consciousness: Alert Orientation: x4 Motor Activity: Normal gait, Other (no motor abnormalities noted) Speech: Unremarkable Language: Adequate Fund of Knowledge: Adequate Attention and Concentration: Adequate Memory: Unremarkable Mood: Other (calm) Affect: Other (less anxious and more reactive today) Thought Process & Associations: Intact Thought Content: Appropriate Hallucination Type: None Delusion Type: None Suicidal Ideation: No Suicidal Plan: No Suicidal Intention: No Homicidal Ideation: No Homicidal Plan: No Homicidal Intention: No Insight: Fair Judgment: Impulsive Results Labs Test 07/30/17 09:11 White Blood Count 5.8 TH/MM3 Red Blood Count 3.66 MIL/MM3 Hemoglobin 11.4 GM/DL Hematocrit 33.5 % Mean Corpuscular Volume 91.6 FL Mean Corpuscular Hemoglobin 31.2 PG Mean Corpuscular Hemoglobin Concent 34.1 % Red Cell Distribution Width 12.8 % Platelet Count 218 TH/MM3 Mean Platelet Volume 7.5 FL Neutrophils (%) (Auto) 75.3 % Lymphocytes (%) (Auto) 12.8 % Monocytes (%) (Auto) 6.7 % Eosinophils (%) (Auto) 4.3 % Basophils (%) (Auto) 0.9 % Neutrophils # (Auto) 4.4 TH/MM3 Lymphocytes # (Auto) 0.7 TH/MM3 Monocytes # (Auto) 0.4 TH/MM3 Eosinophils # (Auto) 0.3 TH/MM3 Basophils # (Auto) 0.1 TH/MM3 CBC Comment DIFF FINAL Differential Comment Blood Urea Nitrogen 8 MG/DL Creatinine 1.41 MG/DL Random Glucose 114 MG/DL Total Protein 6.4 GM/DL Albumin 3.0 GM/DL Calcium Level 8.8 MG/DL Alkaline Phosphatase 50 U/L Aspartate Amino Transf (AST/SGOT) 15 U/L Alanine Aminotransferase (ALT/SGPT) 23 U/L Total Bilirubin 0.3 MG/DL Sodium Level 142 MEQ/L Potassium Level 4.0 MEQ/L Chloride Level 106 MEQ/L Carbon Dioxide Level 31.4 MEQ/L Anion Gap 5 MEQ/L Estimat Glomerular Filtration Rate 42 ML/MIN Date/Time Source Procedure Growth Status 07/27/17 13:25 Blood Peripheral Aerobic Blood Culture - Preliminary NO GROWTH IN 3 DAYS Resulted 07/27/17 13:25 Blood Peripheral Anaerobic Blood Culture - Preliminary NO GROWTH IN 3 DAYS Resulted Labs reviewed. GFR improving. Vitals/IOs Vital Signs Date Time Temp Pulse Resp B/P (MAP) Pulse Ox O2 Delivery O2 Flow Rate FiO2 07/30/17 06:00 98.0 55 17 117/61 (79) 93 Intake and Output 07/30/17 07/30/17 07/31/17 08:00 16:00 00:00 Intake Total 480 ml 960 ml Output Total 700 ml Balance -220 ml 960 ml Assessment & Plan Problem List: (1) Schizoaffective disorder, bipolar type ICD Codes: F25.0 - Schizoaffective disorder, bipolar type Assessment & Plan Patient seems to be improving with current psychotropic regimen. Dizziness is considerably decreased. Continue current psychotropics as ordered. Continue to monitor on the inpatient unit. Continue other medications and care as ordered. Justification for Cont. Inpt. Risk for decompensation and less restrictive environment. Discharge Planning Per Enrique Dove MD Jul 30, 2017 16:18
[2017-07-30 18:00] VITALS: BP 139/90; PULSE 60; RESP 17; TEMP 97.4; O2SAT 96
[2017-07-30] MEDS: PANTOPRAZOLE SODIUM 40 MG VIAL IV PUSH SCH (18:23)
[2017-07-30] MEDS: ACETAMINOPHEN 325 MG TAB PO PRN (23:32)
[2017-07-31] MEDS: cefTRIAXone INJ 1,000 MG in SODIUM CHLORIDE 0.9% INJ 100 ML IV SCH ×2 (01:14→13:36)
[2017-07-31] MEDS: ONDANSETRON HCL 4 MG/2 ML VIAL IV PUSH PRN ×2 (02:33→11:51)
[2017-07-31] MEDS: SODIUM CHLOR 0.9% 1000 ML INJ 1,000 ML IV SCH ×2 (05:45→13:45)
[2017-07-31 06:09] VITALS: BP 131/74; PULSE 65; RESP 15; TEMP 97.9; O2SAT 94
[2017-07-31] MEDS: NICOTINE 21 MG/24 HR PATCH T-DERMAL SCH (08:04)
[2017-07-31] MEDS: risperiDONE 1 MG TAB PO SCH ×2 (08:05→20:26)
[2017-07-31] MEDS: ACETAMINOPHEN 325 MG TAB PO PRN (08:05)
[2017-07-31] MEDS: REMOVE OLD NICOTINE PATCH T-DERMAL SCH (08:05)
[2017-07-31] MEDS: FLUoxetine HCL 20 MG CAP PO SCH (08:05)
[2017-07-31] MEDS: DOCUSATE SODIUM 100 MG CAP PO SCH ×3 (08:05→18:09)
--- NOTE | 2017-07-31 10:09 | HHI.PYPN ---
Subjective Remarks Patient seen for follow-up, chart reviewed. Discussion nursing staff reported the patient appears to doing better, no dizziness or vomiting reported and compliant with treatment. Patient was found lying hospital and notify, cooperative. Patient states she is feeling "okay" states that she is feeling better mentally and less depressed. She reports sleeping well no difficulty eating or drinking but does report having some constipation for the past 5 days. She denies any auditory hallucinations, states having spoken with her father over the phone and mother which she reports went well. Patient has been receiving Ativan for anxiety as needed of the patient not noted to be anxious during interview it was discussed the possibility of having patient on buspirone once kidney function is more stable. Review of Systems Except as stated in HPI: all other systems reviewed are Neg Mental Status Examination Appearance: Appropriate Consciousness: Alert Orientation: x4 Motor Activity: Normal gait, Other (no motor abnormalities noted) Speech: Unremarkable Language: Adequate Fund of Knowledge: Adequate Attention and Concentration: Adequate Memory: Unremarkable Mood: Other (calm) Affect: Other (less anxious and more reactive today) Thought Process & Associations: Intact Thought Content: Appropriate Hallucination Type: None Delusion Type: None Suicidal Ideation: No Suicidal Plan: No Suicidal Intention: No Homicidal Ideation: No Homicidal Plan: No Homicidal Intention: No Insight: Fair Judgment: Impulsive Results Labs Labs reviewed Date/Time Source Procedure Growth Status 07/27/17 13:25 Blood Peripheral Aerobic Blood Culture - Preliminary NO GROWTH IN 3 DAYS Resulted 07/27/17 13:25 Blood Peripheral Anaerobic Blood Culture - Preliminary NO GROWTH IN 3 DAYS Resulted Vitals/IOs Vital Signs Date Time Temp Pulse Resp B/P (MAP) Pulse Ox O2 Delivery O2 Flow Rate FiO2 07/31/17 06:09 97.9 65 15 131/74 (93) 94 Intake and Output 07/31/17 07/31/17 08/01/17 08:00 16:00 00:00 Intake Total 6559 ml Balance 6559 ml Assessment & Plan Problem List: (1) Schizoaffective disorder, bipolar type ICD Codes: F25.0 - Schizoaffective disorder, bipolar type Assessment & Plan Patient this time noted to have improvement in mood, not endorsing any auditory hallucinations but reported continuing anxiety and receiving as needed and lorazepam. Discussion about starting patient on BuSpar was reviewed with patient with recurrent renal function will defer until it is more stable. Patient to continue recommendations as per primary team. Continue to monitor mood and behavior. Collateral information pending from family. Discharge planning in progress. Justification for Cont. Inpt. At risk for further decompensation at lower level of care Julian Dunn MD Jul 31, 2017 10:09
[2017-07-31] MEDS: LORazepam 1 MG TAB PO PRN ×2 (11:43→20:26)
[2017-07-31] MEDS: AZITHROMYCIN INJ 500 MG in SODIUM CHLOR 0.9% 250 ML INJ 250 ML IV SCH (13:36)
[2017-07-31] MEDS: traMADol HCL 50 MG TAB PO PRN (14:32)
--- NOTE | 2017-07-31 14:49 | HHI.PR ---
Subjective Remarks Patient reported minimal cough without fever or chest pain or short of breath Objective Vitals Vital Signs Date Time Temp Pulse Resp B/P (MAP) Pulse Ox O2 Delivery O2 Flow Rate FiO2 07/31/17 06:09 97.9 65 15 131/74 (93) 94 07/31/17 00:32 20 07/30/17 18:00 97.4 60 17 139/90 (106) 96 I/O 07/30/17 07/30/17 07/30/17 07/31/17 07/31/17 07/31/17 07:00 15:00 23:00 07:00 15:00 23:00 Intake Total 1440 ml 1200 ml 6199 ml 600 ml Output Total 700 ml 2800 ml Balance -700 ml 1440 ml -1600 ml 6199 ml 600 ml Intake Oral 1440 ml 1200 ml 240 ml 600 ml IV Total 5959 ml Output Urine Total 700 ml 2800 ml # Voids 2 Result Diagram: 07/30/17 0911 07/30/17 0911 Objective Remarks GENERAL: This is a well-nourished, well-developed patient, in no apparent distress. CARDIOVASCULAR: Regular rate and rhythm without murmurs, gallops, or rubs. RESPIRATORY: Diminished breath sounds bilaterally GASTROINTESTINAL: Abdomen soft, non-tender, nondistended. Normal active bowel sounds MUSCULOSKELETAL: Extremities without clubbing, cyanosis, or edema. NEURO: Alert & Oriented x4 to person, place, time, situation. Moves all ext x4 A/P Assessment and Plan 37 years old female RACHNA - pre renal- reports taking Motrin frequently for back pain last 4 days Improving on IV fluids. Will need to be cautious since patient does have bilateral pleural effusion. Renal service ff 07/31: Follow BMP in a.m., monitor blood pressure and vitals Gastritis On PPI. At the moment she states she is asymptomatic. KUBs negative for any obstruction. Advance diet as tolerated. Multifocal subsegmental pneumonia/bilateral pleural effusion - rocephin/ azithromycin - given renal failure/ low grade fever/ history -Incentive spirometry Back pain- low- denies any recent trauma or injury X-ray shows mild scoliosis. Encourage ambulation. Tramdaol Richie Smith MD Jul 31, 2017 14:49
--- NOTE | 2017-07-31 15:37 | HHI.NPPN ---
Subjective Renal Failure: Acute History of Present Illness Patient is a 37 year old with a past medical history of schizoaffective dx. Nephrology is consulted for RACHNA with a creatinine of 2.89. Patient creatinine was normal 0.59 on 07/06/17. Renal US with echogenic kidneys bilaterally compatible with medical renal disease. Patient reports that she has frequent UTI with last one only 2 weeks ago. Complains of left flank discomfort. Additional Remarks No acute complaints. Resting comfortably. Tolerating fluids (Sandrita Causey) Review of Systems General Constitutional: Fatigue (Sandrita Causey) Respiratory Respiratory Remarks No SOB (Sandrita Causey) Cardiovascular Cardiac Remarks No CP (Sandrita Causey) Gastrointestinal GI Remarks No abdominal pain Nausea noted (Sandrita Causey) Genitourinary Remarks denies dysuria (Sandrita Causey) Objective Data Data 07/31/17 08/01/17 19:00 07:00 Intake Total 1200 ml Balance 1200 ml Intake Oral 1200 ml Vital Signs Date Time Temp Pulse Resp B/P (MAP) Pulse Ox O2 Delivery O2 Flow Rate FiO2 07/31/17 06:09 97.9 65 15 131/74 (93) 94 07/31/17 00:32 20 07/30/17 18:00 97.4 60 17 139/90 (106) 96 (Sandrita Causey) -: 07/30/17 0911 07/30/17 0911 Physical Exam General Appearance: No Acute Distress, Comfortable (Sandrita Causey) Eyes Eye Exam: Pupils Equal (Sandrita Causey) Throat Throat Exam: Oral Mucosa [place] & Moist (Sandrita Causey) Pulmonary Resp Exam: Breath Sounds Equal, No Distress (Sandrita Causey) Cardiology CV Exam: Regular, Normal Sinus Rhythm (Sandrita Causey) Gastrointestinal/Abdomen GI Exam: Soft, Non-Tender, Bowel Sounds Present (Sandrita Causey) Genitourinary Exam: Clear Urine Remarks left flank tenderness (Sandrita Causey) Integumentary Skin Exam: Clear, Warm, Dry (Sandrita Causey) Extremeties Extremities Exam: No Edema (Sandrita Causey) Neurologic Neuro Exam: Alert, Awake (Sandrita Causey) Psychiatric Psych Exam: Appropriate Responses (Sandrita Causey) Assessment/Plan Problem List: (1) RACHNA (acute kidney injury) ICD Codes: N17.9 - Acute kidney failure, unspecified Plan: RACHNA patients creatinine was normal 0.59 on 07/06/17 Most likely with pre-renal RACHNA Renal US with echogenic kidneys bilaterally compatible with medical renal disease. Does use NSAIDs Patient reports that she has frequent UTI with last one only 2 weeks ago. UA negative for protein does not appear to have UTI Plan: Creatinine has been improving Patient tolerating fluids will discontinue IVFs Maintain strict I+O Avoid nephrotoxins JIE is negative Labs in AM (2) Schizoaffective disorder, bipolar type ICD Codes: F25.0 - Schizoaffective disorder, bipolar type (Sandrita Causey) Problem List: (1) RACHNA (acute kidney injury) ICD Codes: N17.9 - Acute kidney failure, unspecified Plan: RACHNA patients creatinine was normal 0.59 on 07/06/17 Most likely with pre-renal RACHNA Renal US with echogenic kidneys bilaterally compatible with medical renal disease. Does use NSAIDs Patient reports that she has frequent UTI with last one only 2 weeks ago. UA negative for protein does not appear to have UTI Plan: Creatinine has been improving Patient tolerating fluids will discontinue IVFs Maintain strict I+O Avoid nephrotoxins JIE is negative Labs in AM. Patient seen and examined, agree with above. Creatinine continue to improve. Told to drink more fluid. (2) Schizoaffective disorder, bipolar type ICD Codes: F25.0 - Schizoaffective disorder, bipolar type (Dalton Roberts MD) Sandrita Causey Jul 31, 2017 15:37 Dalton Roberts MD Jul 31, 2017 19:13
--- NOTE | 2017-07-31 16:18 | PD.TTN ---
Patient Problems 1. Discharge planning 2. Medication compliance 3. Knowledge deficit 4. Lack of coping skills Progress Toward Goals Provider Present: Dr. Lucille Dunn Provider Input: 07/31/2017: patient is being treated medically and required stablization Nurse(s) Present: EDVIN Shane Nurse(s) Input: 07/31/2017; patient is eating and taking her medication; no behavior Psychiatric Counselors Present: AMAURY Shane Psych Therapist Input: 07/31/2017; counselor will contact patient's mother and arrange outpatiet follow-up Group Spec/RT/OT/ROQUE Present: MYA Maravilla Group Spec/RT/OT/ROQUE Input: 07/31/2017; patient has not attended groups Documentation Scribe: AMAURY Shane Sandra LMHC Jul 31, 2017 16:18
[2017-07-31 18:00] VITALS: BP 145/79; PULSE 58; RESP 15; TEMP 98.1; O2SAT 96
[2017-07-31] MEDS: PANTOPRAZOLE SODIUM 40 MG VIAL IV PUSH SCH (18:09)
[2017-08-01] MEDS: cefTRIAXone INJ 1,000 MG in SODIUM CHLORIDE 0.9% INJ 100 ML IV SCH ×2 (01:40→12:52)
[2017-08-01 05:01] VITALS: BP 129/80; PULSE 71; RESP 15; TEMP 98.1; O2SAT 95
[2017-08-01 08:13] LABS: BICARBONATE 28.5 MEQ/L (21.0-32.0); CALCIUM 9.1 MG/DL (8.5-10.1); CREATININE 1.16 MG/DL (0.50-1.00)
[2017-08-01] MEDS: NICOTINE 21 MG/24 HR PATCH T-DERMAL SCH (08:42)
[2017-08-01] MEDS: DOCUSATE SODIUM 100 MG CAP PO SCH ×3 (08:42→17:35)
[2017-08-01] MEDS: FLUoxetine HCL 20 MG CAP PO SCH (08:42)
[2017-08-01] MEDS: REMOVE OLD NICOTINE PATCH T-DERMAL SCH (08:42)
[2017-08-01] MEDS: LORazepam 1 MG TAB PO PRN ×2 (08:46→20:46)
[2017-08-01] MEDS: risperiDONE 1 MG TAB PO SCH ×2 (08:49→20:42)
--- NOTE | 2017-08-01 10:11 | HHI.PYPN ---
Subjective Remarks Patient is here for follow-up, chart reviewed. Discussion nursing staff reported patient noted to be a little down but denying any perceptual disturbances, slept well. Patient was found lying in hospital bed B, cooperative. Patient states that she is feeling "better" and was somewhat bored 30 day period but agreed to attend groups today. Patient reports sleeping well and also reports having spoken to her family recently which think that she is doing much better. Patient denies any perceptual disturbances at this time. Denies any SI or HI. Review of Systems Except as stated in HPI: all other systems reviewed are Neg Mental Status Examination Appearance: Appropriate Consciousness: Alert Orientation: x4 Motor Activity: Normal gait, Other (no motor abnormalities noted) Speech: Unremarkable Language: Adequate Fund of Knowledge: Adequate Attention and Concentration: Adequate Memory: Unremarkable Mood: Other ("Better") Affect: Other (less anxious and more reactive today) Thought Process & Associations: Intact Thought Content: Appropriate Hallucination Type: None Delusion Type: None Suicidal Ideation: No Suicidal Plan: No Suicidal Intention: No Homicidal Ideation: No Homicidal Plan: No Homicidal Intention: No Insight: Fair Judgment: Impulsive Results Labs Labs reviewed Test 08/01/17 06:58 Blood Urea Nitrogen 12 MG/DL Creatinine 1.16 MG/DL Random Glucose 87 MG/DL Calcium Level 9.1 MG/DL Sodium Level 139 MEQ/L Potassium Level 4.2 MEQ/L Chloride Level 103 MEQ/L Carbon Dioxide Level 28.5 MEQ/L Anion Gap 8 MEQ/L Estimat Glomerular Filtration Rate 53 ML/MIN Date/Time Source Procedure Growth Status 07/27/17 13:25 Blood Peripheral Aerobic Blood Culture - Preliminary NO GROWTH IN 4 DAYS Resulted 07/27/17 13:25 Blood Peripheral Anaerobic Blood Culture - Preliminary NO GROWTH IN 4 DAYS Resulted Vitals/IOs Vital Signs Date Time Temp Pulse Resp B/P (MAP) Pulse Ox O2 Delivery O2 Flow Rate FiO2 08/01/17 05:01 98.1 71 15 129/80 (96) 95 Intake and Output 08/01/17 08/01/17 08/02/17 08:00 16:00 00:00 Intake Total 240 ml 360 ml Balance 240 ml 360 ml Assessment & Plan Problem List: (1) Schizoaffective disorder, bipolar type ICD Codes: F25.0 - Schizoaffective disorder, bipolar type Assessment & Plan Patient this time noted to have a less depressed mood although continued with some anxiety receiving as needed medications for anxiety. Patient's renal function improving, hospitalist and nephrology consult input appreciated. We will consider starting patient on BuSpar if continues with increased anxiety once renal function has normalized. We will continue the current treatment regimen. Continue recommendations as her prior medical team. Discharge planning in progress. Justification for Cont. Inpt. At risk for further decompensation if at lower level of care Discharge Planning Return back to her residence once medically and psychiatrically stable. Julian Dunn MD Aug 01, 2017 10:11
[2017-08-01] MEDS: ONDANSETRON HCL 4 MG/2 ML VIAL IV PUSH PRN (12:50)
[2017-08-01] MEDS: AZITHROMYCIN INJ 500 MG in SODIUM CHLOR 0.9% 250 ML INJ 250 ML IV SCH (14:26)
--- NOTE | 2017-08-01 15:33 | HHI.PR ---
Subjective Remarks WANTS MANY MEDS SWITCHED TO PO POSSIBLE NO NEW COMPLAINTS WANTS TO GO HOME Objective Vitals Vital Signs Date Time Temp Pulse Resp B/P (MAP) Pulse Ox O2 Delivery O2 Flow Rate FiO2 08/01/17 05:01 98.1 71 15 129/80 (96) 95 07/31/17 18:00 98.1 58 15 145/79 (101) 96 I/O 07/31/17 07/31/17 07/31/17 08/01/17 08/01/17 08/01/17 07:00 15:00 23:00 07:00 15:00 23:00 Intake Total 6199 ml 1200 ml 2000 ml 240 ml 1560 ml Output Total 800 ml Balance 6199 ml 1200 ml 1200 ml 240 ml 1560 ml Intake Oral 240 ml 1200 ml 2000 ml 240 ml 1560 ml IV Total 5959 ml Output Urine Total 800 ml # Voids 2 2 Result Diagram: 07/30/17 0911 08/01/17 0658 Other Results Laboratory Tests Test 07/30/17 09:11 08/01/17 06:58 White Blood Count 5.8 TH/MM3 Red Blood Count 3.66 MIL/MM3 Hemoglobin 11.4 GM/DL Hematocrit 33.5 % Mean Corpuscular Volume 91.6 FL Mean Corpuscular Hemoglobin 31.2 PG Mean Corpuscular Hemoglobin Concent 34.1 % Red Cell Distribution Width 12.8 % Platelet Count 218 TH/MM3 Mean Platelet Volume 7.5 FL Neutrophils (%) (Auto) 75.3 % Lymphocytes (%) (Auto) 12.8 % Monocytes (%) (Auto) 6.7 % Eosinophils (%) (Auto) 4.3 % Basophils (%) (Auto) 0.9 % Neutrophils # (Auto) 4.4 TH/MM3 Lymphocytes # (Auto) 0.7 TH/MM3 Monocytes # (Auto) 0.4 TH/MM3 Eosinophils # (Auto) 0.3 TH/MM3 Basophils # (Auto) 0.1 TH/MM3 CBC Comment DIFF FINAL Differential Comment Blood Urea Nitrogen 8 MG/DL 12 MG/DL Creatinine 1.41 MG/DL 1.16 MG/DL Random Glucose 114 MG/DL 87 MG/DL Total Protein 6.4 GM/DL Albumin 3.0 GM/DL Calcium Level 8.8 MG/DL 9.1 MG/DL Alkaline Phosphatase 50 U/L Aspartate Amino Transf (AST/SGOT) 15 U/L Alanine Aminotransferase (ALT/SGPT) 23 U/L Total Bilirubin 0.3 MG/DL Sodium Level 142 MEQ/L 139 MEQ/L Potassium Level 4.0 MEQ/L 4.2 MEQ/L Chloride Level 106 MEQ/L 103 MEQ/L Carbon Dioxide Level 31.4 MEQ/L 28.5 MEQ/L Anion Gap 5 MEQ/L 8 MEQ/L Estimat Glomerular Filtration Rate 42 ML/MIN 53 ML/MIN Imaging Last Impressions Thoracic Spine X-Ray 07/28/17 0000 Signed Impressions: Service Date/Time: Friday, July 28, 2017 21:10 - CONCLUSION: 1. Slight levoscoliosis of the upper thoracic spine. 2. Otherwise, unremarkable radiographs of the thoracic spine. Daniel Gutierrez MD Lumbar Spine X-Ray 07/28/17 0000 Signed Impressions: Service Date/Time: Friday, July 28, 2017 21:09 - CONCLUSION: 1. Unremarkable radiographs of the lumbar spine. Daniel Gutierrez MD Chest CT 07/28/17 0000 Signed Impressions: Service Date/Time: Friday, July 28, 2017 14:16 - CONCLUSION: 1. Bilateral pleural effusions, moderate on the right and small left with associated bibasilar subsegmental areas of consolidation. 2. No evidence of mediastinal adenopathy. Wayne Villalba MD Abdomen X-Ray 07/28/17 0000 Signed Impressions: Service Date/Time: Friday, July 28, 2017 21:06 - CONCLUSION: 1. Moderate residual stool in the proximal colon which may reflect some degree of constipation. 2. Otherwise, nonobstructive bowel gas pattern. 3. Mild bibasilar airspace disease and trace pleural effusions. Daniel Gutierrez MD Chest X-Ray 07/27/17 0000 Signed Impressions: Service Date/Time: July 12:54 - CONCLUSION: Multifocal subsegmental bibasilar infiltrates. Wayne Villalba MD Renal Ultrasound 07/26/17 0000 Signed Impressions: Service Date/Time: Wednesday, July 26, 2017 15:10 - CONCLUSION: Echogenic kidneys bilaterally compatible with medical renal disease. Enrique Mills MD Objective Remarks GENERAL: AWAKE AND ALERT AND ORIENTED AND TALKATIVE AND COOPERATIVE SKIN: Warm and dry. HEAD: Atraumatic. Normocephalic. EYES: Pupils equal and round. No scleral icterus. No injection or drainage. EOMI ENT: No nasal bleeding or discharge. Mucous membranes pink and moist. TONGUE MIDLINE NECK: Trachea midline. No JVD. SUPPLE CARDIOVASCULAR: Regular rate and rhythm. S1 and S2 no S3 or S4 RESPIRATORY: No accessory muscle use. Clear to auscultation. Breath sounds equal bilaterally. GASTROINTESTINAL: Abdomen soft, non-tender, nondistended. Hepatic and splenic margins not palpable. MUSCULOSKELETAL: Extremities without clubbing, cyanosis, or edema. No obvious deformities. NEUROLOGICAL: Awake and alert. No obvious cranial nerve deficits. Motor grossly within normal limits. Five out of 5 muscle strength in the arms and legs. Normal speech. PSYCHIATRIC: Appropriate mood and affect; insight and judgment normal. Procedures NONE Medications and IVs Current Medications Lorazepam (Ativan) 1 mg Q6H PRN PO MODERATE TO SEVERE ANXIETY Last administered on 07/30/17at 18:23; Start 07/26/17 at 13:00; Stop 07/31/17 at 10:10 ; Status DC Lorazepam (Ativan Inj) 1 mg Q6H PRN IM MODERATE TO SEVERE ANXIETY; Start at 13:00 Lorazepam (Ativan) 0.5 mg Q12H PRN PO MODERATE TO SEVERE ANXIETY; Start at 13:00; Status Cancel Lorazepam (Ativan Inj) 0.5 mg Q12H PRN IM MODERATE TO SEVERE ANXIETY; Start at 13:00; Status Cancel Acetaminophen (Tylenol) 650 mg Q4H PRN PO Pain 1-5 or Temp >101F Last administered on 07/31/17at 08:05; Start 07/26/17 at 13:00 Magnesium Hydroxide (Milk Of Magnesia Liq) 30 ml DAILY PRN PO CONSTIPATION Last administered on 07/28/17at 18:04; Start 07/26/17 at 13:00 Al Hydrox/Mg Hydrox/Simethicone (Mag-Al Plus Susp Liq) 30 ml Q6H PRN PO DYSPEPSIA Last administered on 07/27/17at 12:13; Start 07/26/17 at 13:00 Nicotine (Habitrol 21 Mg Patch.24 Hr) 1 patch DAILY T-DERMAL Last administered on 08/01/17 08:42; Start 07/26/17 at 13:00 Risperidone (risperDAL) 0.5 mg BID PO Last administered on 07/28/17 09:41; Start 07/26/17 at 21:00; Stop 07/28/17 at 10:45; Status DC Diphenhydramine HCl (Benadryl) 25 mg Q8HR PO Last administered on 07/27/17 05: 33; Start 07/26/17 at 14:00; Stop 07/27/17 at 10:12; Status DC Miscellaneous Information 1 DAILY T-DERMAL Last administered on 08/01/17 08:42 ; Start 07/27/17 at 09:00 Sodium Chloride 1,000 ml @ 125 mls/hr Q8H IV Last administered on 07/31/17 13 :45; Start 07/26/17 at 13:45; Stop 07/31/17 at 15:38; Status DC Tramadol HCl (Ultram) 50 mg Q8H PRN PO pain >5 Last administered on 07/31/17 14:32; Start 07/26/17 at 14:00 Ondansetron HCl (Zofran Inj) 4 mg Q6HR PRN IV PUSH nausea Last administered on 08/01/17 12:50; Start 07/27/17 at 11:30 Docusate Sodium (Colace) 100 mg TID PO Last administered on 08/01/17 13:00; Start 07/27/17 at 13:00 Acetaminophen (Tylenol) 650 mg Q4H PRN PO fever >101; Start 07/27/17 at 12:00 Lamotrigine (LaMICtal) 25 mg BID PO ; Start 07/28/17 at 10:45; Stop 07/28/17 at 10:49; Status DC Risperidone (risperDAL) 1 mg BID PO Last administered on 08/01/17 08:49; Start 07/28/17 at 21:00 Fluoxetine HCl (PROzac) 20 mg DAILY PO Last administered on 08/01/17 08:42; Start 07/28/17 at 12:00 Ceftriaxone Sodium 1000 mg/ Sodium Chloride 100 ml @ 200 mls/hr Q12H IV Last administered on 2/27/18at 12:52; Start 07/28/17 at 13:00 Azithromycin 500 mg/Sodium Chloride 250 ml @ 250 mls/hr Q24H IV Last administered on 08/01/17at 14:26; Start 07/28/17 at 13:00 Pantoprazole Sodium (Protonix Inj) 40 mg Q24H IV PUSH Last administered on 07/31at 18:09; Start 07/28/17 at 17:00 Lorazepam (Ativan) 1 mg Q8HR PRN PO MODERATE TO SEVERE ANXIETY Last administered on 08/01/17at 08:46; Start 07/31/17 at 10:15 A/P Assessment and Plan 37 years old female RACHNA - pre renal- reports taking Motrin frequently for back pain last 4 days Improving on IV fluids. Will need to be cautious since patient does have bilateral pleural effusion. Renal service ff 07/31: Follow BMP in a.m., monitor blood pressure and vitals Gastritis On PPI. At the moment she states she is asymptomatic. KUBs negative for any obstruction. Advance diet as tolerated. Multifocal subsegmental pneumonia/bilateral pleural effusion - rocephin/ azithromycin - given renal failure/ low grade fever/ history -Incentive spirometry SWITCH TO PO ZITHROMAX Back pain- low- denies any recent trauma or injury X-ray shows mild scoliosis. Encourage ambulation. Tramdaol prn Discharge Planning Pending psychiatric clearance Thiago Hall DO Aug 01, 2017 15:33
[2017-08-01] MEDS: PANTOPRAZOLE SOD 40 MG DELAYED RELEASE TAB PO SCH (15:45)
[2017-08-01] MEDS: guaiFENesin E.R. 600 MG TAB PO SCH ×2 (15:45→20:42)
[2017-08-01] MEDS: traMADol HCL 50 MG TAB PO PRN (16:06)
[2017-08-01 18:04] VITALS: BP 131/85; PULSE 57; RESP 16; TEMP 98.2; O2SAT 97
[2017-08-01] MEDS: ACETAMINOPHEN 325 MG TAB PO PRN (20:42)
[2017-08-02 04:43] VITALS: BP 108/57; PULSE 76; RESP 16; TEMP 97.7; O2SAT 95
[2017-08-02] MEDS: cefTRIAXone INJ 1,000 MG in SODIUM CHLORIDE 0.9% INJ 100 ML IV SCH (04:49)
[2017-08-02] MEDS: NICOTINE 21 MG/24 HR PATCH T-DERMAL SCH (09:00)
[2017-08-02 10:21] LABS: BICARBONATE 27.5 MEQ/L (21.0-32.0); CALCIUM 9.5 MG/DL (8.5-10.1); CREATININE 1.13 MG/DL (0.50-1.00)
[2017-08-02] MEDS: risperiDONE 1 MG TAB PO SCH (10:58)
[2017-08-02] MEDS: PANTOPRAZOLE SOD 40 MG DELAYED RELEASE TAB PO SCH (10:58)
[2017-08-02] MEDS: FLUoxetine HCL 20 MG CAP PO SCH (10:58)
[2017-08-02] MEDS: guaiFENesin E.R. 600 MG TAB PO SCH (10:58)
[2017-08-02] MEDS: DOCUSATE SODIUM 100 MG CAP PO SCH (10:58)
--- NOTE | 2017-08-02 11:19 | HHI.NPPN ---
Subjective Renal Failure: Acute History of Present Illness Patient is a 37 year old with a past medical history of schizoaffective dx. Nephrology is consulted for RACHNA with a creatinine of 2.89. Patient creatinine was normal 0.59 on 07/06/17. Renal US with echogenic kidneys bilaterally compatible with medical renal disease. Patient reports that she has frequent UTI with last one only 2 weeks ago. Complains of left flank discomfort. Additional Remarks No acute complaints. Resting comfortably. Tolerating fluids. Good UOP (Sandrita Causey) Review of Systems General Constitutional: Fatigue (Sandrita Causey) Respiratory Respiratory Remarks No SOB (Sandrita Causey) Cardiovascular Cardiac Remarks No CP (Sandrita Causey) Gastrointestinal GI Remarks No abdominal pain Nausea noted (Sandrita Causey) Genitourinary Remarks denies dysuria (Sandrita Causey) Objective Data Data 08/02/17 08/03/17 19:00 07:00 Intake Total 240 ml Balance 240 ml Intake Oral 240 ml Vital Signs Date Time Temp Pulse Resp B/P (MAP) Pulse Ox O2 Delivery O2 Flow Rate FiO2 08/02/17 04:43 97.7 76 16 108/57 (74) 95 08/01/17 18:04 98.2 57 16 131/85 (100) 97 (Sandrita Causey) -: 07/30/17 0911 08/02/17 0929 Physical Exam General Appearance: No Acute Distress, Comfortable (Sandrita Causey) Eyes Eye Exam: Pupils Equal (Sandrita Causey) Throat Throat Exam: Oral Mucosa [place] & Moist (Sandrita Causey) Pulmonary Resp Exam: Breath Sounds Equal, No Distress (Sandrita Causey) Cardiology CV Exam: Regular, Normal Sinus Rhythm (Sandrita Causey) Gastrointestinal/Abdomen GI Exam: Soft, Non-Tender, Bowel Sounds Present (Sandrita Causey) Genitourinary Exam: Clear Urine Remarks left flank tenderness (Sandrita Causey) Integumentary Skin Exam: Clear, Warm, Dry (Sandrita Causey) Extremeties Extremities Exam: No Edema (Sandrita Causey) Neurologic Neuro Exam: Alert, Awake (Sandrita Causey) Psychiatric Psych Exam: Appropriate Responses (Sandrita Causey) Assessment/Plan Problem List: (1) RACHNA (acute kidney injury) ICD Codes: N17.9 - Acute kidney failure, unspecified Plan: RACHNA patients creatinine was normal 0.59 on 07/06/17 Most likely with pre-renal RACHNA Renal US with echogenic kidneys bilaterally compatible with medical renal disease. Does use NSAIDs Patient reports that she has frequent UTI with last one only 2 weeks ago. UA negative for protein does not appear to have UTI Plan: Creatinine has been improving Instructed to avoid nephrotoxins Fluids encouraged fluid Nephrology will sign off. (2) Schizoaffective disorder, bipolar type ICD Codes: F25.0 - Schizoaffective disorder, bipolar type (Sandrita Causey) Problem List: (1) RACHNA (acute kidney injury) ICD Codes: N17.9 - Acute kidney failure, unspecified Plan: RACHNA patients creatinine was normal 0.59 on 07/06/17 Most likely with pre-renal RACHNA Renal US with echogenic kidneys bilaterally compatible with medical renal disease. Does use NSAIDs Patient reports that she has frequent UTI with last one only 2 weeks ago. UA negative for protein does not appear to have UTI Plan: Creatinine has been improving Instructed to avoid nephrotoxins Fluids encouraged fluid. Patient seen and examined, agree with above. Nephrology will sign off. (2) Schizoaffective disorder, bipolar type ICD Codes: F25.0 - Schizoaffective disorder, bipolar type (Dalton Roberts MD) Sandrita Causey Aug 02, 2017 11:19 Dalton Roberts MD Aug 02, 2017 19:40
[2017-08-02] MEDS ORDERED: AZIT500T2 PO (11:46)
[2017-08-02] MEDS ORDERED: RISP1 PO (11:56)
[2017-08-02] MEDS ORDERED: PANT40TA3 PO (11:56)
[2017-08-02] MEDS ORDERED: FLUO20CA12 PO (11:56)
[2017-08-02] MEDS ORDERED: DOCU1CAP39 PO (11:56)
--- NOTE | 2017-08-02 12:05 | HHI.DS ---
Psychiatry Discharge Summary Inpatient Psychiatric care?: Yes Advance Directive: No Reason Not Provided: Education Provided Mental Health AdvanceDirective: No Health Care Proxy: No Admission Admission Date Jul 26, 2017 at 12:17 Admission Diagnosis: (1) Schizoaffective disorder, bipolar type ICD Code: F25.0 - Schizoaffective disorder, bipolar type Brief History Late entry: The patient was seen this morning at 7:10 AM in [place]. The patient is a 37-year-old woman, with psychiatric history of schizoaffective disorder, bipolar type, autism spectrum disorder, about 5 psychotic hospitalizations, her last hospitalization was here at [place] in June 2017 under the care of , Dr. Maya, documentation was reviewed, no previous suicidal attempts, outpatient psychiatric care at [facility] , she is on Invega Sustenna, unknown dose, her next shot is due August 06, 2017, she is also a Lamictal 25 mg twice a day, hydroxyzine 25 3 times a day. No significant medical history, who presents in [facility] complaining of hearing voices. Patient is seen in the emergency room today voluntarily because she is hearing voices which have told her to harm herself. She is accompanied by her boyfriend who says that she was complaining of quite a bit of pain and was vomiting and that is one of the reasons why he brought her to the hospital. She has been taking her medications without difficulty. She takes Lamictal, hydroxyzine and respiratory. She says recently her risperidone was increased when she went to emergency room visit 2 days ago in [place]. She notes since that her symptoms of abdominal discomfort have gotten worse. Patient been admitted for further evaluation. Patient is admitted under observation in [place] due to acute kidney injury, with the creatinine in 3.4, BUN 24. Chart was reviewed. Case was discussed with primary medical team and staff. On psychiatric evaluation the patient is found sleeping, she is accompanied with one-to-one sitter. She is easily arousable. Calm and cooperative. With prominent flat affect, psychomotor retardation and some fine bilateral tremors. The patient reports that she came to the ER because she has been hearing voices telling her to kill herself. She described the voices are episodic, last for some minutes, usually male and female voices, very loud, scary, coming sometimes for inside or outside her head, broadcasting type, usually making derogatory comments toward her, talking about them, and also telling her directly to kill herself. She says that since she was discharged from [place] about month ago, she has not feeling okay, her brother 3 days after she was discharged and she also has been feeling depressed, with lack of motivation, isolation, feelings of hopelessness and helplessness, suicidal thoughts. She reports that she has been taking her medications as prescribed, even though the hydroxyzine give her dry mouth. This moment the patient denies suicidal and homicidal ideation, there are no visual or auditory hallucination presents at this moment. Last time patient her voices was last night. The patient is fully oriented 3, is logical, coherent and relevant. There is no loosening of associations, flight of ideas, thought insertion, ideas of reference or prominent paranoia at this moment. The patient reported that at times she does feel paranoid toward the people around her "thinking that they want to kill me or harm me". The patient denies the use of illegal drugs and alcohol. Tobacco Use In Past 30 Days: 5 or More Cigarettes/Day Alcohol Use: Never Hospital Course The patient is a 37-year-old woman, with psychiatric history of schizoaffective disorder, bipolar type, autism spectrum disorder, about 5 psychotic hospitalizations, her last hospitalization was here at [place] in June 2017 under the care of , Dr. Maya, documentation was reviewed, no previous suicidal attempts, outpatient psychiatric care at [facility] , she is on Invega Sustenna, unknown dose, her next shot is due August 06, 2017, she is also a Lamictal 25 mg twice a day, hydroxyzine 25 3 times a day. No significant medical history, who presents in [facility] complaining of hearing voices. Patient was admitted to a locked, inpatient medical/ psychiatric unit. Hospitalist and nephrology continued to follow the patient with medical management for acute kidney injury as well as for mutltifocal subsegmental pneumonia/bilateral pleural effusion. Appropriate precautions were in place throughout patient's hospital stay. Patient was seen and examined on the unit by psychiatry. Psychotropic medications were adjusted. There was no evidence of any suicidality or homicidality on the inpatient unit. Patient's behavior improved with the benefit of psychopharmacologic treatment with cessation of perceptual disturbances and depressed mood. On the day of discharge: Patient seen and examined with nurse and counselor. Case discussed with nurse and counselor. No behavioral issues overnight. On my examination today, the patient denies any suicidal or homicidal ideation, intent or plan on direct questioning and contracts for safety. I can elicit no mood symptoms. She denies any audiovisual hallucinations. No delusional material verbalized today. She denies any side effects from medications. She has a good understanding of her medication regimen. No physical complaints. Suicide and violence risk assessment on day of discharge both suggest lower imminent risk, and the patient's level of function is adequate for planned level of outpatient care. Patient has maximized benefit from this inpatient psychiatric hospital stay and will be discharged to boyfriends home with follow-up as arranged by counselor. Patient is also follow-up with primary care and with mental health services. Patient advised to call 911 or to return to psychiatric emergency room for any concerning psychiatric symptoms. Patient agrees with plan. Results Blood Pressure 108 / 57 Vital Signs Date Time Temp Pulse Resp B/P (MAP) Pulse Ox O2 Delivery O2 Flow Rate FiO2 08/02/17 04:43 97.7 76 16 108/57 (74) 95 Laboratory Tests Test 08/01/17 06:58 08/02/17 09:29 Creatinine 1.16 MG/DL (0.50-1.00) 1.13 MG/DL (0.50-1.00) Estimat Glomerular Filtration Rate 53 ML/MIN (>89) 55 ML/MIN (>89) Laboratory Results Test 07/27/17 07:25 Cholesterol Level 125 MG/DL (120-200) HDL Cholesterol 57.7 MG/DL (40.0-60.0) Hemoglobin A1c 5.3 % (4.3-6.0) LDL Cholesterol 42 MG/DL (0-99) Triglycerides Level 125 MG/DL (42-150) Summary of Procedures none Imaging Last Impressions Thoracic Spine X-Ray 07/28/17 0000 Signed Impressions: Service Date/Time: Friday, July 28, 2017 21:10 - CONCLUSION: 1. Slight levoscoliosis of the upper thoracic spine. 2. Otherwise, unremarkable radiographs of the thoracic spine. Daniel Gutierrez MD Lumbar Spine X-Ray 07/28/17 0000 Signed Impressions: Service Date/Time: Friday, July 28, 2017 21:09 - CONCLUSION: 1. Unremarkable radiographs of the lumbar spine. Daniel Gutierrez MD Chest CT 07/28/17 0000 Signed Impressions: Service Date/Time: Friday, July 28, 2017 14:16 - CONCLUSION: 1. Bilateral pleural effusions, moderate on the right and small left with associated bibasilar subsegmental areas of consolidation. 2. No evidence of mediastinal adenopathy. Wayne Villalba MD Abdomen X-Ray 07/28/17 0000 Signed Impressions: Service Date/Time: Friday, July 28, 2017 21:06 - CONCLUSION: 1. Moderate residual stool in the proximal colon which may reflect some degree of constipation. 2. Otherwise, nonobstructive bowel gas pattern. 3. Mild bibasilar airspace disease and trace pleural effusions. Daniel Gutierrez MD Chest X-Ray 07/27/17 0000 Signed Impressions: Service Date/Time: July 12:54 - CONCLUSION: Multifocal subsegmental bibasilar infiltrates. Wayne Villalba MD Renal Ultrasound 07/26/17 0000 Signed Impressions: Service Date/Time: Wednesday, July 26, 2017 15:10 - CONCLUSION: Echogenic kidneys bilaterally compatible with medical renal disease. Enrique Mills MD Pending results at discharge: No Medications # of Antipsychotic meds at D/C: 1 Approp Antipsych med options 1 - Minimum of three failed multiple trials of monotherapy. 2 - Documented plan to taper to monotherapy due to previous use of multiple meds OR cross-taper in progress at D/C. 3 - Documentation of augmentation of Clozapine. 4 - Justification other than those listed in allowable values 1-3, document here : Discharge Discharge Date: Aug 02, 2017 Discharge Diagnosis: (1) Schizoaffective disorder, bipolar type ICD Code: F25.0 - Schizoaffective disorder, bipolar type Pt Condition on Discharge: Stable Discharge Disposition: Discharge Home Discharge Instructions Diet Instructions: As Tolerated, No Restrictions Activities you can perform: Regular-No Restrictions Discharge Time > 30 minutes Mental Status Examination Appearance: Appropriate Consciousness: Alert Orientation: x4 Motor Activity: Normal gait, Other (no motor abnormalities noted) Speech: Unremarkable Language: Adequate Fund of Knowledge: Adequate Attention and Concentration: Adequate Memory: Unremarkable Mood: Appropriate Affect: Appropriate Thought Process & Associations: Intact Thought Content: Appropriate Hallucination Type: None Delusion Type: None Suicidal Ideation: No Suicidal Plan: No Suicidal Intention: No Homicidal Ideation: No Homicidal Plan: No Homicidal Intention: No Insight: Fair Judgment: Impulsive Discharge/Advance Care Plan Health Problems: (1) Schizoaffective disorder, bipolar type Goals to promote your health * To prevent worsening of your condition and complications * To maintain your health at the optimal level Directions to meet your goals Take your medications as prescribed Follow your dietary instruction Follow activity as directed Keep your appointments as scheduled Take your immunizations and boosters as scheduled If your symptoms worsen call your PCP, if no PCP go to Urgent Care Center or Emergency Room For 26/12 questions related to your inpatient stay or results of tests pending at discharge, please contact Dr. Julian Dunn at Smoking is Dangerous to Your Health. Avoid second hand smoking Julian Dunn MD Aug 02, 2017 12:05
--- NOTE | 2017-08-02 13:07 | HHI.DS ---
Discharge Summary Admission Date Jul 26, 2017 at 12:17 Discharge Date: Aug 02, 2017 Admitting Diagnosis Schizoaffective (1) Schizoaffective disorder, bipolar type ICD Code: F25.0 - Schizoaffective disorder, bipolar type (2) Pneumonia ICD Code: J18.9 - Pneumonia, unspecified organism (3) Urinary tract infection ICD Code: N39.0 - Urinary tract infection, site not specified Status: Acute (4) RACHNA (acute kidney injury) ICD Code: N17.9 - Acute kidney failure, unspecified Procedures NONE Brief History - From Admission History from patient, and review of medical records. Patient is admitted to the psychiatry service for feeling really weak/insomnia/ hearing voices. She has history of schizoaffective disorder diagnosed recently. Medical team was consulted for acute renal failure. Patient initially was admitted to medical service at [facility] for this. She received IV hydration for past 24 hours. However her renal function has not improved significantly despite this. Patient reports that she's been throwing up for the past 4 days or so. She also reports she has not eaten or drank much because of his severe depression. Denies any blood in her vomitus. Still has persistence nausea. Denies any abdominal pain. She however complains of pain in her bilateral flank. She has had imaging studies done while at [facility] and this did not reveal any evidence of renal stent/obstructive uropathy/pyelonephritis. Her UA was negative as well. Patient denies any abdominal pain. Denies any diarrhea or black stool or red stool. She does however report of some feeling of food being stuck in her throat when she eats. She stated that the symptoms only started after she took paliperidone shots for psychiatry in the previous admission. About 3 weeks ago. Also reports of dizziness which started only about 3 weeks ago after this shot was started. Currently she is no longer and this medication. She is on Risperdal by mouth. On review of medical records, patient was also started on Lamictal, Macrobid in previous admissions. Her renal function was normal up until July 06, 2017. Patient reports that all her medications were in use since then. Prior to end june, she was not on any medications. CBC/BMP: 07/30/17 0911 08/02/17 0929 Significant Findings Laboratory Tests Test 08/01/17 06:58 08/02/17 09:29 Creatinine 1.16 MG/DL (0.50-1.00) 1.13 MG/DL (0.50-1.00) Estimat Glomerular Filtration Rate 53 ML/MIN (>89) 55 ML/MIN (>89) PE at Discharge GENERAL: AWAKE AND ALERT AND ORIENTED AND TALKATIVE AND COOPERATIVE SKIN: Warm and dry. HEAD: Atraumatic. Normocephalic. EYES: Pupils equal and round. No scleral icterus. No injection or drainage. EOMI ENT: No nasal bleeding or discharge. Mucous membranes pink and moist. TONGUE MIDLINE NECK: Trachea midline. No JVD. SUPPLE CARDIOVASCULAR: Regular rate and rhythm. S1 and S2 no S3 or S4 RESPIRATORY: No accessory muscle use. Clear to auscultation. Breath sounds equal bilaterally. GASTROINTESTINAL: Abdomen soft, non-tender, nondistended. Hepatic and splenic margins not palpable. MUSCULOSKELETAL: Extremities without clubbing, cyanosis, or edema. No obvious deformities. NEUROLOGICAL: Awake and alert. No obvious cranial nerve deficits. Motor grossly within normal limits. Five out of 5 muscle strength in the arms and legs. Normal speech. PSYCHIATRIC: Appropriate mood and affect; insight and judgment normal. Hospital Course 37-year-old female admitted on July 26, 2017 with psychosis including auditory hallucinations and suicidal ideations. Our medical team was consulted to evaluate ongoing cough, and elevated creatinine. X-ray revealed evidence of pneumonia, she was started on IV Rocephin and IV azithromycin on July 28. She has been cleared by psychiatry for discharge today, her cough is not bothering her today. She should be considered medically clear for discharge, I am recommending 1 more week of p.o. azithromycin. Elevation in creatinine responded to IV fluids and was likely due to urinary tract infection with overlying dehydration. She does not need follow-up beyond her primary care doctor for these medical issues. I have recommended that she see a primary care doctor as soon as possible and arrange follow-up with local psychiatrist. Pt Condition on Discharge: Stable Discharge Disposition: Discharge Home Discharge Time: <= 30 minutes Discharge Instructions DIET: Follow Instructions for: As Tolerated, No Restrictions Activities you can perform: Regular-No Restrictions Eric Erwin MD Aug 02, 2017 13:07
== END 2017-08-02 13:00 | disposition home or self-care (01) | DRG 885 ==
LOC: H4EA 12:17
PROVIDERS: ADMIT Student in an Organized Health Care Education/Training Program; ATTEND Student in an Organized Health Care Education/Training Program
DX: F25.0 Schizoaffective disorder, bipolar type (principal); J18.9 Pneumonia, unspecified organism; J90 Pleural effusion, not elsewhere classified; N17.9 Acute kidney failure, unspecified; F84.0 Autistic disorder; R25.1 Tremor, unspecified; G47.00 Insomnia, unspecified; F17.210 Nicotine dependence, cigarettes, uncomplicated; Z87.440 Personal history of urinary (tract) infections; M54.9 Dorsalgia, unspecified; K59.00 Constipation, unspecified; K29.70 Gastritis, unspecified, without bleeding; F41.9 Anxiety disorder, unspecified
CPT/HCPCS: 71046; 71250; 72072; 72110; 74019; 76775; 80048; 80053; 80061; 80074; 81001; 82150; 82550; 83036; 83690; 83935; 84100; 84300; 84702; 85025; 86021; 86038; 86703; 87040; 93306; C9113; J0456; J0696; J2405; J7030; J7050